=== PATIENT | male | born 1940 | race African-American/Black ===

== ENCOUNTER → 2017-10-22 12:56 | Outpatient (CLI) | payer MEDICARE, OTHER, SELFPAY ==
--- NOTE | 2017-10-22 13:08 | XR_ITS ---
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 There is cortical thickening of the mid shaft of the femur consistent with a healed fracture. There is some heterotopic bone formation about the proximal aspect of the intramedullary murali is actually posterior to the murali. There are mild osteoarthritic changes of the right hip. No fracture or dislocation. No bony destructive process. Surgical clips are present over the lower pelvic region. Bipolar hip left hip prosthesis is also noted. IMPRESSION: 1. Postsurgical changes with old mid shaft femoral fracture. 2. Mild osteoarthritic change of the right hip with heterotopic bone formation posterior to the proximal aspect of the IM murali
== END ==
PROVIDERS: PCP Family Medicine; Visit Provider Family Medicine
DX: M25.551 Pain in right hip (principal)
CPT/HCPCS: 73502

== ENCOUNTER → 2017-10-30 12:53 | Outpatient (CLI) | payer MEDICARE, OTHER, SELFPAY ==
--- NOTE | 2017-10-30 12:58 | CT_ITS ---
CT hip RT wo con HISTORY: ITS.REASON: RT HIP PAIN ORDERING PHYSICIAN: Carly Mukherjee MD PATIENT AGE: 77 years TECHNIQUE: Axial images are obtained without contrast. Sagittal and coronal reformatted images also generated and reviewed COMPARISON: None FINDINGS: Artifact is present from an intramedullary murali within the right hip. The murali extends from the greater trochanter into the femoral shaft and is not imaged distally. There are mild osteoarthritic changes of the right hip with decrease in the joint space and mild osteophyte formation. No acute fracture or dislocation is evident. Soft tissue calcification is present along the proximal aspect of the intramedullary murali consistent with heterotopic bone formation. No lytic or blastic change evident. No abnormal fluid collection. IMPRESSION: 1. Mild osteoarthritic changes of the right hip. 2. Postsurgical changes with intramedullary murali within the femur with heterotopic bone formation along the proximal aspect of the murali. 3. No acute finding
== END ==
PROVIDERS: Family Provider Family Medicine; PCP Family Medicine; Visit Provider Family Medicine
DX: M25.551 Pain in right hip (principal)
CPT/HCPCS: 73700

== ENCOUNTER → 2017-12-07 09:58 | Outpatient (POV) | payer MEDICARE, OTHER, SELFPAY | PROVIDERS: Family Provider Family Medicine; PCP Family Medicine; Visit Provider Nurse Practitioner Acute Care | DX: Z00.00 Encounter for general adult medical examination without abnormal findings (principal) ==

== ENCOUNTER → 2018-02-01 13:43 | Outpatient (POV) | payer MEDICARE, OTHER, SELFPAY ==
[2018-02-01 15:15] LABS: Basophils % 0.3 % (0.1-2.0); Eosinophils # 0.1 K/mm3 (0.0-0.4); Eosinophils % 0.9 % (0.1-12.0); Hematocrit 44.8 % (42.0-52.0); Hemoglobin 14.6 g/dL (14.1-18.0); Lymphocytes # 1.9 K/mm3 (0.7-4.5); Lymphocytes % 14.7 K/mm3 (10-50); Mean Corpuscular HGB Conc 32.7 g/dL (31.8-35.4); Mean Corpuscular Hemoglobin 30.8 pg (27.0-31.2); Mean Corpuscular Volume 94.3 fl (80-94); Mean Platelet Volume 10.3 fl (7.4-10.4); Monocytes # 0.9 K/mm3 (0.1-1.0); Monocytes % 6.5 % (1.7-9.3); Neutrophils # 10.2 K/mm3 (1.8-7.8); Neutrophils % 77.6 % (37.0-80.0); Platelet Count 157 K/mm3 (142-424); Red Blood Count 4.75 M/mm3 (4.60-6.20); Red Cell Distribution Width 16.3 % (11.5-17.5); White Blood Count 13.1 K/mm3 (4.8-10.8)
[2018-02-01 15:33] LABS: Blood Urea Nitrogen 20 mg/dL (7-18); Carbon Dioxide 25 mmol/L (21.0-32.0); Chloride 107 mmol/L (98-107); Creatinine,Serum 1.01 mg/dL (0.70-1.30); Estimated Glomerular Filt Rate 71 ml/min (>60); GFR (African American) 86 ML/MIN (>60); Sodium 142 mmol/L (136-145)
[2018-02-01 15:34] LABS: Alanine Aminotransferase 35 U/L (12-78); Albumin Level 3.4 gm/dL (3.4-5.0); Anion Gap 10.2 mEq/L (5-15); Aspartate Amino Transferase 24 U/L (15-37); C-Reactive Protein 1.6 mg/L (0.0-0.9); Calcium 9.3 mg/dL (8.5-10.1); Glucose 87 mg/dL (74-106)
[2018-02-01 16:12] LABS: Alkaline Phosphatase 138 U/L (46-116); Bilirubin,Total 0.6 mg/dL (0.2-1.0); Ferritin 277 ng/mL (8-388); Globulin 3.5 gm/dl (1.3-3.2); Total Protein,Serum 6.9 gm/dL (6.4-8.2)
[2018-02-01 16:26] LABS: Erythrocyte Sedimentation Rate 27 mm/hr (0-20)
[2018-02-03 08:25] LABS: Iron 70 ug/dL (38-169); Iron Saturation 25 % (15-55); UIBC 210 ug/dL (111-343)
[2018-02-05 12:35] LABS: Vitamin B12 1191 pg/mL (232-1245); Vitamin D 25 Hydroxy 22.8 ng/mL (30.0-100.0)
== END ==
PROVIDERS: Family Provider Family Medicine; PCP Family Medicine; Visit Provider Nurse Practitioner Acute Care
DX: K51.90 Ulcerative colitis, unspecified, without complications (principal)
CPT/HCPCS: 36415; 80053; 82607; 82652; 82728; 83550; 85025; 85651; 86140

== ENCOUNTER → 2018-02-10 13:47 | Outpatient (CLI) | payer MEDICARE, OTHER, SELFPAY ==
[2018-02-10 15:34] LABS: Basophils % 0.2 % (0.1-2.0); Eosinophils # 0.1 K/mm3 (0.0-0.4); Eosinophils % 0.8 % (0.1-12.0); Hematocrit 43.2 % (42.0-52.0); Lymphocytes # 1.6 K/mm3 (0.7-4.5); Lymphocytes % 15.2 K/mm3 (10-50); Mean Corpuscular HGB Conc 32.4 g/dL (31.8-35.4); Mean Corpuscular Hemoglobin 30.1 pg (27.0-31.2); Mean Platelet Volume 10.8 fl (7.4-10.4); Monocytes # 0.4 K/mm3 (0.1-1.0); Monocytes % 4.2 % (1.7-9.3); Neutrophils # 8.1 K/mm3 (1.8-7.8); Neutrophils % 79.6 % (37.0-80.0); Platelet Count 165 K/mm3 (142-424); Red Blood Count 4.65 M/mm3 (4.60-6.20); Red Cell Distribution Width 16.4 % (11.5-17.5); White Blood Count 10.2 K/mm3 (4.8-10.8)
[2018-02-10 15:48] LABS: INR 1.67 (0.9-1.1); Prothrombin Time 18.1 seconds (9.4-11.8)
[2018-02-10 16:38] LABS: Alanine Aminotransferase 40 U/L (12-78); Albumin Level 3.4 gm/dL (3.4-5.0); Alkaline Phosphatase 135 U/L (46-116); Anion Gap 14.7 mEq/L (5-15); Aspartate Amino Transferase 25 U/L (15-37); Bilirubin,Total 0.4 mg/dL (0.2-1.0); Blood Urea Nitrogen 20 mg/dL (7-18); Calcium 9.1 mg/dL (8.5-10.1); Carbon Dioxide 24 mmol/L (21.0-32.0); Chloride 107 mmol/L (98-107); Creatinine,Serum 0.99 mg/dL (0.70-1.30); Estimated Glomerular Filt Rate 73 ml/min (>60); Ferritin 272 ng/mL (8-388); GFR (African American) 88 ML/MIN (>60); Globulin 3.3 gm/dl (1.3-3.2); Potassium 3.7 mmoL/L (3.5-5.1); Sodium 142 mmol/L (136-145); Total Protein,Serum 6.7 gm/dL (6.4-8.2)
[2018-02-10 16:48] LABS: Glucose 120 mg/dL (74-106)
[2018-02-12 08:29] LABS: Alpha-1-Antitrypsin 161 mg/dL (90-200); Immunoglobulin A, Qn 235 mg/dL (61-437); Immunoglobulin G, Qn 888 mg/dL (700-1600); Iron 53 ug/dL (38-169); Iron Saturation 20 % (15-55); UIBC 215 ug/dL (111-343)
[2018-02-12 09:22] LABS: Hep A Ab, IgM Negative (Negative); Hep B Core Ab, Total Negative (Negative); Hepatitis B Core Antibody IgM Negative (Negative); Hepatitis B Surface Antigen Negative (Negative)
[2018-02-12 10:18] LABS: Hep A Ab, Total Negative (Negative); Hep B Surface Ab, Qual Reactive (.); Hepatitis C Antibody <0.1 s/co ratio (0.0-0.9); Immunoglobulin M, Qn 283 mg/dL (15-143)
[2018-02-12 19:22] LABS: Actin (Smooth Muscle) Antibody 101 Units (0-19); Angiotensin Converting Enzyme 46 U/L (14-82); Antinuclear Antibodies, IFA Negative (.); Deamidated Gliadin Abs, IgA 4 units (0-19); Deamidated Gliadin Abs, IgG 2 units (0-19); Endomysial IgA Antibody Negative (Negative); Liver-Kidney Microsomal Ab <1.0 Units (0.0-20.0); Mitochondrial (M2) Antibody <20.0 Units (0.0-20.0); Tissue Transglutaminase IgA Ab <2 U/mL (0-3); Tissue Transglutaminase IgG Ab <2 U/mL (0-5)
[2018-02-14 04:23] LABS: Reticulin IgA Antibody Negative titer (Neg:<1:2.5)
[2018-02-16 16:33] LABS: ALT (SGPT) P5P 35 IU/L (0-55); Alpha 2-Macroglobulins, Qn 219 mg/dL (110-276); Apolipoprotein A-1 191 mg/dL (101-178); Bilirubin, Total 0.3 mg/dL (0.0-1.2); Fibrosis Score 0.17 (0.00-0.21); GGT 23 IU/L (0-65); Haptoglobin 195 mg/dL (34-200); Necroinflammat Activity Grade A0-No activity (.); Necroinflammat Activity Score 0.16 (0.00-0.17)
== END ==
PROVIDERS: Visit Provider Internal Medicine Gastroenterology
DX: R94.5 Abnormal results of liver function studies (principal); K51.90 Ulcerative colitis, unspecified, without complications
CPT/HCPCS: 36415; 80053; 80074; 82104; 82164; 82728; 82784; 83516; 83550; 85025; 85610; 86038; 86255; 86256; 86376; 86704; 86706; 86708

== ENCOUNTER → 2018-02-15 07:25 | Outpatient (CLI) | payer MEDICARE, OTHER, SELFPAY ==
--- NOTE | 2018-02-15 08:00 | US_ITS ---
US abdomen limited: HISTORY: ITS.REASON: ABNORMAL LIVER FUNCTION ORDERING PHYSICIAN: Anabel Chu PATIENT AGE: 77 years FINDINGS: PANCREAS: Unremarkable. No obvious mass or abnormal fluid collection. No ductal dilatation LIVER: There is a 14 x 7 mm bilocular cyst in the left lobe of the liver. No other liver lesions are evident. RIGHT KIDNEY: 10 x 8 mm right renal cyst is noted GALLBLADDER: There is a gallstone present in the region of the neck of the gallbladder. No wall thickening or pericholecystic fluid. The common bile duct upper limits of normal for patient's age at 8 mm. No intrahepatic ductal dilatation apparent IMPRESSION: 1. Cholelithiasis. 2. Small hepatic cyst and small renal cyst
== END ==
PROVIDERS: Family Provider Family Medicine; PCP Family Medicine; Visit Provider Nurse Practitioner Acute Care
DX: R94.5 Abnormal results of liver function studies (principal)
CPT/HCPCS: 76705

== ENCOUNTER → 2018-02-16 08:43 | Outpatient (CLI) | payer MEDICARE, OTHER, SELFPAY ==
--- NOTE | 2018-02-16 08:50 | XR_ITS ---
XR chest 2V HISTORY: ITS.REASON: PLEURISY chest pain ORDERING PHYSICIAN: Carly Mukherjee MD PATIENT AGE: 77 years COMPARISON: 04/15/2017 FINDINGS: Prior median sternotomy. Cardiomegaly without failure. Emphysema with hyperinflation and attenuation of the peripheral pulmonary vessels in the apices with hyperlucency. Old granulomatous disease. No lobar consolidation or collapse. Degenerative changes of the right shoulder with severe subacromial stenosis IMPRESSION: No change cardiomegaly with emphysema
--- NOTE | 2018-02-16 08:51 | XR_ITS ---
XR shoulder LT min 2V HISTORY: Left shoulder pain ITS.REASON: PLEURISY ORDERING PHYSICIAN: Carly Mukherjee MD PATIENT AGE: 77 years FINDINGS: Moderate osteoarthritic changes involve the acromioclavicular joint with spurring superiorly and inferiorly with subacromial stenosis. There is a calcification along the humeral head laterally consistent with calcific tendinitis. There are moderate osteoarthritic changes of the glenohumeral joint. No fracture or dislocation. No lytic or blastic change. 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
== END ==
PROVIDERS: PCP Family Medicine; Visit Provider Family Medicine
DX: R09.1 Pleurisy (principal)
CPT/HCPCS: 71046; 73030

== ENCOUNTER → 2018-02-24 10:50 | Outpatient (CLI) | payer MEDICARE, OTHER, SELFPAY ==
[2018-02-24 11:32] LABS: INR 2.56 (0.9-1.1); Prothrombin Time 27.9 seconds (9.4-11.8)
== END ==
PROVIDERS: Visit Provider Nurse Practitioner
DX: Z79.01 Long term (current) use of anticoagulants (principal); Z51.81 Encounter for therapeutic drug level monitoring; I48.0 Paroxysmal atrial fibrillation
CPT/HCPCS: 36415; 85610

== ENCOUNTER → 2018-09-06 13:58 | Outpatient (POV) | payer MEDICARE, OTHER, SELFPAY | PROVIDERS: Visit Provider Nurse Practitioner Acute Care | DX: Z00.00 Encounter for general adult medical examination without abnormal findings (principal) ==

== ENCOUNTER → 2018-09-13 14:42 | Outpatient (CLI) | payer MEDICARE, OTHER, SELFPAY ==
[2018-09-13 15:44] LABS: C-Reactive Protein 2.5 mg/L (0.0-0.9); Ferritin 110 ng/mL (8-388)
[2018-09-13 15:50] LABS: Erythrocyte Sedimentation Rate 42 mm/hr (0-20)
[2018-09-15 06:19] LABS: Iron 22 ug/dL (38-169); UIBC 261 ug/dL (111-343)
[2018-09-15 06:27] LABS: Iron Saturation 8 % (15-55)
[2018-09-15 14:19] LABS: Vitamin B12 1142 pg/mL (232-1245)
[2018-09-15 14:22] LABS: Vitamin D 25 Hydroxy 41.8 ng/mL (30.0-100.0)
== END ==
PROVIDERS: Visit Provider Nurse Practitioner Acute Care
DX: K51.90 Ulcerative colitis, unspecified, without complications (principal)
CPT/HCPCS: 36415; 82607; 82652; 82728; 83540; 83550; 85651; 86140

== ENCOUNTER → 2019-03-15 10:00 | Outpatient (CLI) | payer MEDICARE, OTHER, SELFPAY ==
--- NOTE | 2019-03-15 10:04 | XR_ITS ---
XR chest 2V HISTORY: Cough, ITS.REASON: THERAPEUTIC DRUG THERAPY ORDERING PHYSICIAN: Carly Mukherjee MD PATIENT AGE: 78 years COMPARISON: 02/16/2018 FINDINGS: There is cardiomegaly without failure. There has been a prior median sternotomy. 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 The charity are prominent felt to be related to overlying vessels. No lobar consolidation or collapse. No acute bony anomalies. 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
== END ==
PROVIDERS: PCP Family Medicine; Visit Provider Family Medicine
DX: Z51.81 Encounter for therapeutic drug level monitoring (principal); Z79.01 Long term (current) use of anticoagulants; I48.0 Paroxysmal atrial fibrillation
CPT/HCPCS: 71046

== ENCOUNTER → 2019-11-29 08:46 | Outpatient (CLI) | payer MEDICARE, OTHER, SELFPAY ==
--- NOTE | 2019-11-29 09:05 | XR_ITS ---
PROCEDURE: XR CHEST 2V CLINICAL HISTORY: FLU LIKE SYMPTOMS COMPARISON: CXR CHEST(2 VIEWS-NOT PORTABLE) from 11/27/2015 CXR CHEST(2 VIEWS-NOT PORTABLE) from 04/15/2017 CXR2V XR chest 2V from 02/16/2018 FINDINGS: There is cardiomegaly with an atherosclerotic aorta without active CHF status post median sternotomy. There is mild prominence of the superior mediastinal shadow similar to previous exam. This may be due to thyroid enlargement. Shadow from great arch vascularity could give this appearance. Other etiology mediastinal mass is felt to be less likely. There is COPD. The lungs are clear without infiltrates, suspicious nodules, or pleural effusions. No acute bony abnormalities. IMPRESSION: No acute findings. Dictated by: Roland Aldrich 11/29/2019 11:35 Electronically signed by Roland Aldrich in [place] 11/29/2019 11:35
== END ==
PROVIDERS: PCP Family Medicine; Visit Provider Family Medicine
DX: R68.89 Other general symptoms and signs (principal)
CPT/HCPCS: 71046

== ENCOUNTER 2021-02-12 08:55 | Emergency (ER) | payer MEDICARE, OTHER, SELFPAY ==
[2021-02-12 08:57] VITALS: BP 120/77; PULSE 79; RESP 18; TEMP 36.7; O2SAT 96; BMI 30.4
--- NOTE | 2021-02-12 09:02 | HMH.EDGENADL ---
ED Disposition Clinical Impression: Epistaxis, Chronic anticoagulation Disposition: Home, Self-Care Condition on Discharge: Good Instructions: DI for Nosebleed Referrals: Carly Mukherjee MD [Primary Care Provider] - 3 days Time of Disposition: 10:34 - Critical Care Critical Care Time: No Attestation: On , the high probability of a clinically significant, sudden or life threatening deterioration of the following system(s) required my full and direct attention, intervention and personal management. The time I documented below is in addition to time spent performing reported procedures but includes the following listed in this critical care notation. Medical Decision Making - Jacques Inquiry Pt receiving controlled substance: No Vital Signs: 02/12/21 08:57 Temperature 98.1 F Temperature Source Oral Pulse Rate [Left Radial] 79 Respiratory Rate 18 Blood Pressure [Left Arm] 120/77 Blood Pressure Mean [Left Arm] 91 Blood Pressure Source [Left Arm] Automatic Cuff Blood Pressure Position [Left Arm] Sitting 02 Sat by Pulse Oximetry 96 Oxygen Delivery Method Room Air - Lab Data Lab results reviewed: Yes: I reviewed the patient's lab results. Lab Results 02/12/21 09:30: WBC 8.5, RBC 4.14 L, Hgb 13.5 L, Hct 40.2 L, MCV 97.1 H, MCH 32.6 H, MCHC 33.6, RDW 18.0 H, Plt Count 131 L, MPV 11.2 H, Neut % (Auto) 80.2 H, Lymph % (Auto) 11.7, [place] % (Auto) 6.3, Eos % (Auto) 1.5, Baso % (Auto) 0.2, Neut # (Auto) 6.8, Lymph # (Auto) 1.0, [place] # (Auto) 0.5, Eos # (Auto) 0.1, Baso # (Auto) 0.0 02/12/21 09:30: PT 32.7 H, INR 3.01 H Result diagrams: 02/12/21 09:30 Orders (Tests/Meds): ED MEDICATIONS Discontinued Medications Generic Name Dose Route Start Last Admin Trade Name Freq PRN Reason Stop Dose Admin Oxymetazoline HCl 1 ml 02/12/21 09:44 02/12/21 09:47 Oxymetazoline Nasal [place] 0.05% 15ml NS 02/12/21 09:45 1 ml ONCE ONE Administration Medical Decision Narrative: Left-sided epistaxis has resolved upon my initial evaluation. Patient treated with Afrin and monitored in the emergency department for 1-1/2 hours. CBC reveals appropriate H/H. INR is 3. Patient reports he is supposed to be 2-2.5. Encourage the patient to skip his dose of Coumadin tonight and have his INR rechecked Thursday or . Patient voiced understanding. Patient instructed on appropriate use of Afrin nasal spray. Encouraged to return to the emergency department if he begins bleeding again. General Adult HPI - General Stated complaint: nose bleed Time Seen by Provider: 02/12/21 09:02 Mode of Arrival: EMS Source of Information: Patient - History of Present Illness HPI narrative: 80yo M with past medical history significant for atrial fibrillation maintained on chronic anticoagulation presents the emergency department secondary to epistaxis. Patient reports this is been ongoing for several days. He reports it does not bleed at night. Patient wears supplemental O2 at night. He states he has been able to get it to stop each day but today he has continued to bleed. Patient arrived via EMS and EMS was almost achieved hemostasis upon arrival. Patient denies any recent illness. Denies shortness of breath or chest pain. - Related Data Home Medications Medication Instructions Recorded Confirmed Albuterol Sulfate [Proair Hfa 1 puff INHALATION DAILY 12/01/18 12/06/18 90mcg/puff Inh] Furosemide [Furosemide 40MG tAB*] 40 mg PO DAILY 12/01/18 02/12/21 Warfarin Sodium 5 mg PO DIRECTED 12/01/18 02/12/21 metHOTREXate sodium [metHOTREXate 8 tab PO WEEKLY 12/01/18 02/12/21 2.5mg Tablet] Ferrous Sulfate [Ferrous Sulfate 325 mg PO DAILY 02/12/21 02/12/21 325mg Tab] Metoprolol Succinate [Metoprolol 50 mg PO DAILY 02/12/21 02/12/21 Succinate 50mg Tablet*] Allergies Allergy/AdvReac Type Severity Reaction Status Date / Time No Known Allergies Allergy Verified 12/06/18 11:19 [facility] History - Hepat
[2021-02-12 09:06] VITALS: PULSE 69; O2SAT 96
[2021-02-12 09:31] VITALS: BP 107/72; PULSE 74; O2SAT 93
[2021-02-12 10:01] VITALS: BP 123/82; PULSE 70; O2SAT 93
[2021-02-12 10:02] LABS: Basophils % 0.2 % (0.1-2.0); Eosinophils # 0.1 K/mm3 (0.0-0.4); Eosinophils % 1.5 % (0.1-12.0); Hematocrit 40.2 % (42.0-52.0); Hemoglobin 13.5 g/dL (14.1-18.0); Lymphocytes % 11.7 % (10-50); Mean Corpuscular HGB Conc 33.6 g/dL (31.8-35.4); Mean Corpuscular Hemoglobin 32.6 pg (27.0-31.2); Mean Corpuscular Volume 97.1 fl (80-94); Mean Platelet Volume 11.2 fl (7.4-10.4); Monocytes # 0.5 K/mm3 (0.1-1.0); Monocytes % 6.3 % (1.7-9.3); Neutrophils # 6.8 K/mm3 (1.8-7.8); Neutrophils % 80.2 % (37.0-80.0); Platelet Count 131 K/mm3 (142-424); Red Blood Count 4.14 M/mm3 (4.60-6.20); White Blood Count 8.5 K/mm3 (4.8-10.8)
[2021-02-12 10:16] LABS: INR 3.01 (0.9-1.1); Prothrombin Time 32.7 seconds (10.1-12.5)
[2021-02-12 10:56] VITALS: BP 119/78; PULSE 70; RESP 18; TEMP 36.6; O2SAT 93
== END 2021-02-12 10:56 | disposition home or self-care (01) ==
PROVIDERS: Emergency Provider Family Medicine; PCP Family Medicine
DX: R04.0 Epistaxis (principal); I48.20 Chronic atrial fibrillation, unspecified; Z79.01 Long term (current) use of anticoagulants; J44.9 Chronic obstructive pulmonary disease, unspecified; E78.5 Hyperlipidemia, unspecified; I25.10 Atherosclerotic heart disease of native coronary artery without angina pectoris; Z96.641 Presence of right artificial hip joint; Z96.642 Presence of left artificial hip joint
CPT/HCPCS: 85025; 85610; 99282

== ENCOUNTER → 2021-09-03 15:10 | Outpatient (CLI) | payer MEDICARE, OTHER, SELFPAY ==
--- NOTE | 2021-09-03 15:13 | XR_ITS ---
PROCEDURE: XR NASAL BONES MIN 3V CLINICAL INDICATION: CONTUSION OF NOSE,INTITIAL ENCOUNTER COMPARISON: No exams were available for comparison FINDINGS: There is a well-circumscribed lucency through the mid aspect of the nasal bone consistent with a nondisplaced fracture. No sinus air-fluid level. No other significant anomalies are evident. IMPRESSION: Nondisplaced nasal bone fracture. Dictated by: Arik Gasca MD 09/03/2021 15:57 Arik Gasca MD in [place] 09/03/2021 15:57
--- NOTE | 2021-09-03 15:14 | XR_ITS ---
PROCEDURE: XR HAND RT MIN 3V CLINICAL INDICATION: CONTUSION OF FINGER OF RT HAND, UNSPECIFIED FINGER COMPARISON: No exams were available for comparison FINDINGS: No fracture or dislocation. No lytic or blastic change. There is normal mineralization. A small thin metallic density is present along the plantar aspect of the middle 5th phalanx within the soft tissues consistent with a foreign body measuring approximately 3 mm in length. Osteoarthritic changes are present at the DIP joints of the 2nd, 3rd, and 5th fingers as well as interphalangeal joint of the thumb. Well-circumscribed lucency is noted along proximal and palmar aspect of the distal phalanx of the thumb suggesting a cystic lesion at 7 x 3 mm. Osteoarthritic change 1st metacarpophalangeal joint and 1st carpal metacarpal junction. Severe atherosclerotic calcification noted. Osteoarthritis at the scapho trapezium joint. IMPRESSION: Degenerative changes as described above with metallic foreign body along the palmar aspect of the middle 5th phalanx proximally No acute fracture apparent Dictated by: Arik Gasca MD 09/03/2021 15:54 Arik Gasca MD in [facility] 09/03/2021 15:54
== END ==
PROVIDERS: PCP Family Medicine; Visit Provider Family Medicine
DX: S00.33XA Contusion of nose, initial encounter (principal); S60.00XA Contusion of unspecified finger without damage to nail, initial encounter
CPT/HCPCS: 70160; 73130

== ENCOUNTER → 2021-09-24 09:29 | Outpatient (CLI) | payer MEDICARE, OTHER, SELFPAY ==
--- NOTE | 2021-09-24 09:34 | XR_ITS ---
PROCEDURE: XR CHEST 2V CLINICAL HISTORY: SOB COMPARISON: CR CXR CHEST(2 VIEWS-NOT PORTABLE) from 04/15/2017 CR CXR2V XR chest 2V from 02/16/2018 CR XR CHEST 2V from 11/29/2019 FINDINGS: Prior CABG. Mild cardiomegaly. COPD with emphysematous changes. Increased markings in the right lower lobe suspicious for pneumonia. Left lung is clear. There are degenerative changes of the shoulders. IMPRESSION: Emphysematous changes with right lower lobe pneumonia Dictated by: Arik Gasca MD 09/24/2021 09:59 Arik Gasca MD in [facility] 09/24/2021 09:59
== END ==
PROVIDERS: PCP Family Medicine; Visit Provider Family Medicine
DX: R06.02 Shortness of breath (principal)
CPT/HCPCS: 71046

== ENCOUNTER → 2021-10-10 08:17 | Outpatient (CLI) | payer MEDICARE, OTHER, SELFPAY ==
--- NOTE | 2021-10-10 08:24 | CT_ITS ---
PROCEDURE: CT ABDOMEN WO/W CON CLINICAL HISTORY: ABD SWELLING,ASCITES COMPARISON: CR IVPI IVP--W/MILLER from 02/28/2015 US ABDLM US abdomen limited from 02/15/2018 TECHNIQUE: 75 mL Isovue 370 IV. Images obtained without and with contrast. Axial images obtained with sagittal and coronal reformats. All CT scans at the facility use one or more dose reduction, viz: automated exposure control, ma/kV adjustment per patient size (including targeted exams where dose is matched to indication, i.e. head), or iterative reconstruction technique. FINDINGS: Cardiomegaly. Enlarged right atrium and right ventricle. Prominent inferior vena cava. These findings suggest right heart decompensation. Centrilobular emphysema. Parenchymal opacity is present in the posterior costophrenic sulcus on the right at 1.6 cm. Coronary artery calcifications There is some regularity of the hepatic surface with mild prominence of the left hepatic lobe and a smaller right hepatic lobe. These findings are some suggestive of cirrhosis. There are at least 3 small hepatic hypodense lesions the largest in the left hepatic lobe at approximately 11 mm. These are nonspecific and may represent cysts. The gallbladder is distended with at least 1 radiopaque stone. There is a mild amount of perihepatic and perisplenic fluid. The spleen is not enlarged. The portal vein is slightly prominent at 17 mm. The adrenal glands and pancreas have an unremarkable appearance. No renal or ureteral calculi. There is a hyperdense exophytic nodule of the left kidney laterally measuring 19 x 18 x 17 mm with an average of 50 Hounsfield units on the unenhanced exam. The margins of this nodule are somewhat ill-defined with minimal enhancement of the nodule. There is a small right renal cyst at 11 mm. No retroperitoneal adenopathy. There are small bilateral renal cysts. No intestinal obstruction apparent. There is colonic diverticulosis. The pelvis is not included on the exam completely. Fluid is present in the pericolic gutters no renal or ureteral calculi. There is a mild amount of subcutaneous edema. There are degenerative changes in the lumbar spine. Atherosclerotic changes involve the aorta and its branches IMPRESSION: 1. Findings suggesting right heart decompensation. 2. 1.6 cm parenchymal opacity in the right posterior costophrenic sulcus. This is indeterminate and could be inflammatory/infectious or even neoplastic. Cannot exclude a metastatic focus in this patient with a suspicious left renal mass. 3. Findings compatible with cirrhosis with ascites and mildly enlarged portal vein. The spleen is not enlarged and no significant collateral vessels are apparent. 4. 19 mm left renal nodule suspicious for neoplasm. Suggest ultrasound to confirm solid nature. 5. Other nonacute findings as described above Dictated by: Arik Gasca MD 10/11/2021 08:53 Arik Gasca MD in [facility] 10/11/2021 08:53
== END ==
PROVIDERS: PCP Family Medicine; Visit Provider Family Medicine
DX: R19.00 Intra-abdominal and pelvic swelling, mass and lump, unspecified site (principal)
CPT/HCPCS: 74170; Q9967

== ENCOUNTER → 2021-10-17 14:32 | Outpatient (CLI) | payer MEDICARE, OTHER, SELFPAY | PROVIDERS: Visit Provider Urology | DX: N40.1 Benign prostatic hyperplasia with lower urinary tract symptoms (principal); B96.20 Unspecified Escherichia coli [E. coli] as the cause of diseases classified elsewhere | CPT/HCPCS: 87086; 87088; 87186 ==

== ENCOUNTER → 2021-10-31 13:04 | Outpatient (CLI) | payer MEDICARE, OTHER, SELFPAY ==
--- NOTE | 2021-10-31 13:05 | US_ITS ---
FINAL REPORT CLINICAL HISTORY: .eval kidney for lesion on lt -- recent ct-- ascites noted FINDINGS: RENAL ULTRASOUND Ultrasound images of the kidneys were obtained. Limited images of the liver parenchyma demonstrates normal echogenicity. The right kidney measures 9.8 cm in length. There is no hydronephrosis. There is a small right renal cyst. The left kidney measures 9.2 cm in length. There is no hydronephrosis. There is a 2.1 cm mass in the left kidney with questionable peripheral calcifications. This does not appear to be a simple cyst, may represent complex cyst or possibly renal neoplasm. IMPRESSION: Left renal mass, may represent a complex cyst or possibly renal neoplasm. Recommend renal mass protocol CT in 6 months. Reviewed, Interpreted and Dictated by Merlin Mclaughlin III, MD Transcribed by Marta Beebe Authenticated by Merlin Mclaughlin III, MD on 10/31/2021 03:17:10 PM [facility]
== END ==
PROVIDERS: PCP Family Medicine; Visit Provider Urology
DX: N28.89 Other specified disorders of kidney and ureter (principal)
CPT/HCPCS: 76770

== ENCOUNTER → 2021-11-11 08:12 | Outpatient (CLI) | payer MEDICARE, OTHER, SELFPAY ==
--- NOTE | 2021-11-11 08:17 | CT_ITS ---
FINAL REPORT TECHNIQUE: Axial CT images of the abdomen and pelvis were obtained before and after the administration of IV contrast. This study was performed with techniques to keep radiation doses as low as reasonably achievable (ALARA). Individualized dose reduction techniques using automated exposure control or adjustment of mA and/or kV according to the patient''s size were employed. CLINICAL HISTORY: LT RENAL MASS COMPARISON: 10/10/2021, 10/31/2021 FINDINGS: Abdomen: The lung bases demonstrate moderate emphysema. There is a persistent, irregular soft tissue nodule at the right posterior costophrenic angle measuring 1.8 cm, unchanged. Marked enlargement of the right atrium and right ventricle is stable. Probable small cysts are seen in the liver. There is moderate ascites. Gallbladder is distended with small gallstones. The spleen is unremarkable. No adrenal masses present. The pancreas has an unremarkable appearance. There is a hyperdense, left renal mass measuring 20 mm, which is stable in size. This measures 52 Hounsfield units on precontrast imaging and 60?62 Hounsfield units on postcontrast imaging which is borderline for contrast enhancement. On recent ultrasound, this mass has a mostly cystic appearance with probable small calcifications in the wall. The aorta is normal in caliber. Vascular calcifications are noted. Precontrast images demonstrate no evidence of nephrolithiasis. Pelvis: The appendix is not well visualized. The urinary bladder is unremarkable. No inflammatory process is seen. There is no evidence of mass or adenopathy. There is no evidence of bowel obstruction. IMPRESSION: Stable, 20 mm lateral left renal mass. While neoplasm is not entirely excluded, complex cyst (Bosniak category 2F) is favored. This can be further evaluated with follow-up renal mass protocol CT in 6 months. Stable soft tissue nodule at the right lung base which may be infectious or neoplastic. Stable ascites and pericardial effusion. Reviewed, Interpreted and Dictated by Merlin Mclaughlin III, MD Transcribed by Kristina Schmidt Authenticated by Merlin Mclaughlin III, MD on 11/11/2021 11:38:33 AM [facility]
== END ==
PROVIDERS: PCP Family Medicine; Visit Provider Family Medicine
DX: N28.89 Other specified disorders of kidney and ureter (principal)
CPT/HCPCS: 74178; Q9967

== ENCOUNTER → 2022-01-06 12:32 | Outpatient (CLI) | payer MEDICARE, OTHER, SELFPAY ==
--- NOTE | 2022-01-06 12:39 | XR_ITS ---
FINAL REPORT CLINICAL HISTORY: COUGH,PNEUMONIA,POST COVID COMPARISON: 09/24/2021 FINDINGS: Two views of the chest were obtained. The heart size and pulmonary vascularity are within normal limits. The patient is status post median sternotomy. There are persistent bilateral opacities, right greater than left which may represent scarring or residual pneumonia. There is no pneumothorax. The bony thorax is intact. IMPRESSION: Persistent bilateral opacities, right greater than left, scarring versus residual pneumonia. Reviewed, Interpreted and Dictated by Merlin Mclaughlin III, MD Transcribed by Radha Isabel Authenticated by Merlin Mclaughlin III, MD on 01/06/2022 01:29:25 PM [facility]
== END ==
PROVIDERS: PCP Family Medicine; Visit Provider Family Medicine
DX: R05.9 Cough, unspecified (principal); J18.9 Pneumonia, unspecified organism; U09.9 Post COVID-19 condition, unspecified
CPT/HCPCS: 71046

== ENCOUNTER → 2022-01-16 11:54 | Outpatient (CLI) | payer MEDICARE, OTHER, SELFPAY ==
--- NOTE | 2022-01-16 11:59 | XR_ITS ---
FINAL REPORT CLINICAL HISTORY: INJURY OF RIGHT WRIST, INITIAL ENCOUNTER. pt fell and has radial sided wrist pain. FINDINGS: RIGHT WRIST Three views demonstrate no acute fracture or dislocation. There are mild degenerative changes. There are moderate vascular calcifications. IMPRESSION: No acute bony abnormality. Reviewed, Interpreted and Dictated by Merlin Mclaughlin III, MD Transcribed by Whitney Garcia Authenticated by Merlin Mclaughlin III, MD on 01/16/2022 01:05:49 PM [facility]
== END ==
PROVIDERS: PCP Family Medicine; Visit Provider Nurse Practitioner Family
DX: S69.91XA Unspecified injury of right wrist, hand and finger(s), initial encounter (principal)
CPT/HCPCS: 73110

== ENCOUNTER → 2022-02-13 13:55 | Outpatient (CLI) | payer MEDICARE, OTHER, SELFPAY ==
[2022-02-13 15:29] LABS: Blood Urea Nitrogen 23 mg/dl (9-20); Estimated Glomerular Filt Rate 72 ml/min (>60); GFR (African American) 87 ML/MIN (>60)
== END ==
PROVIDERS: PCP Family Medicine; Visit Provider Family Medicine
DX: Z51.81 Encounter for therapeutic drug level monitoring (principal); Z79.01 Long term (current) use of anticoagulants; I48.0 Paroxysmal atrial fibrillation
CPT/HCPCS: 36415; 82565; 84520

== ENCOUNTER → 2022-02-14 09:53 | Outpatient (CLI) | payer MEDICARE, OTHER, SELFPAY ==
--- NOTE | 2022-02-14 09:58 | CT_ITS ---
FINAL REPORT CLINICAL HISTORY: OTHER ASCITES, bloating COMPARISON: November 11, 2021 FINDINGS: CT ABDOMEN with and without: PROCEDURE: Axial images were obtained from the lung base to the iliac crest by computed tomography before and after the administration of contrast. This study was performed with techniques to keep radiation doses as low as reasonably achievable (ALARA). Individualized dose reduction techniques using automated exposure control or adjustment of mA and/or kV according to the patient's size were employed. ABDOMEN: There are chronic changes in the lung bases. The heart is normal in size. There is a low-attenuation focus in the lateral left lobe of the liver, stable from prior. There is a moderate amount of ascites which is increased from prior. There is a gallstone in the dependent portion of the gallbladder. The spleen is normal. No adrenal masses present. The pancreas is normal. There is a high density cyst in the periphery of the left kidney measuring 2.0 x 1.4 cm that is unchanged since the prior exam. The aorta is normal in caliber. IMPRESSION: Interval increase in ascites. Cholelithiasis. Stable high density cyst in the left kidney. For complete characterization a renal mass protocol CT would be necessary. Reviewed, Interpreted and Dictated by Aaron Hummel MD Transcribed by Hemal Majano Authenticated by Aaron Hummel MD on 02/14/2022 01:24:30 PM [facility]
== END ==
PROVIDERS: PCP Family Medicine; Visit Provider Family Medicine
DX: R18.8 Other ascites (principal)
CPT/HCPCS: 74170; Q9967

== ENCOUNTER 2022-02-15 17:30 | Emergency (ER) | payer MEDICARE, OTHER, SELFPAY ==
[2022-02-15] VITALS (10 sets, daily range): BP systolic 99–122; BP diastolic 71–88; PULSE 78–127; RESP 10–24; TEMP 36.6; O2SAT 92–100; BMI 27.3
--- NOTE | 2022-02-15 17:25 | HMH.EDWEAK ---
ED Disposition Clinical Impression: Chronic anticoagulation, Liver disease Contusion Qualifiers: Encounter type: initial encounter Contusion area: head Disposition: Still a Patient Condition on Discharge: Fair Instructions: DI for Muscle Weakness Referrals: Provider,Referral, [Referring] - - Critical Care Critical Care Time: No Attestation: On , the high probability of a clinically significant, sudden or life threatening deterioration of the following system(s) required my full and direct attention, intervention and personal management. The time I documented below is in addition to time spent performing reported procedures but includes the following listed in this critical care notation. Medical Decision Making - Medical Records Medical records reviewed: Yes: I reviewed the patient's medical records. - Jacques Inquiry Pt receiving controlled substance: No Vital Signs: 02/15/22 17:25 02/15/22 19:01 Temperature 98 F Temperature Source Oral Pulse Rate [Radial] 78 Respiratory Rate 22 10 L Blood Pressure 102/77 L Blood Pressure [Right Arm] 103/71 L Blood Pressure Mean [Right Arm] 81 Blood Pressure Position [Right Arm] Sitting 02 Sat by Pulse Oximetry 96 92 L Oxygen Delivery Method Nasal Cannula Room Air Oxygen Flow Rate (LPM) 2 - Lab Data Lab Results 02/15/22 19:50: WBC 6.8, RBC 3.24 L, Hgb 11.2 L, Hct 34.4 L, MCV 106.1 H, MCH 34.7 H, MCHC 32.7, RDW 19.4 H, Plt Count 75 L, MPV 11.3 H, Neut % (Auto) 88.6 H, Lymph % (Auto) 7.0 L, [place] % (Auto) 2.2, Eos % (Auto) 1.5, Baso % (Auto) 0.7, Neut # (Auto) 6.0, Lymph # (Auto) 0.5 L, [place] # (Auto) 0.2, Eos # (Auto) 0.1, Baso # (Auto) 0.0, Total Counted 100, Neutrophils % (Manual) 89 H, Band Neutrophils % 2.0, Lymphocytes % (Manual) 9 L, Platelet Estimate Slight decrease, Poikilocytosis 1+, Anisocytosis 3+, Macrocytosis 2+ 02/15/22 19:50: PT 90.0 H, INR 8.00 H 02/15/22 19:50: Sodium 134 L, Potassium 2.8 L*, Chloride 99, Carbon Dioxide 32 H, Anion Gap 5.8, BUN 23 H, Creatinine 1.00, Estimated Creat Clear 66, Estimated GFR 72, Est GFR ( Amer) 87, Glucose 113 H, Calcium 9.0, Total Bilirubin 3.1 H, AST 57, ALT 30, Alkaline Phosphatase 149 H, Total Protein 5.5 L, Albumin 2.7 L, Globulin 2.8, Albumin/Globulin Ratio 1.0 L Result diagrams: 02/15/22 19:50 02/15/22 19:50 Orders (Tests/Meds): ORDERS Category Date Time Status Ammonia Stat Lab 02/15/22 19:50 Received Urinalysis and Microscopic Stat Lab 02/15/22 Ordered 12-lead EKG Request [ECG Request by /Teri] Stat Y 02/15/22 17:31 Ordered - CT Data CT Scan: Head Time Received: 17:[address] Reviewed: Yes: I have viewed the radiologist's interpretation - ECG Data Tracing #1 I reviewed this ECG and interpreted as documented below: The patient is EKG was done at 1726. It shows atrial fibrillation with a ventricular response rate of [address] elevations. There are ST depressions in V2 V3 V4 V5. There are also Q waves present. There are Q waves are in leads II, III and aVF. No acute appearing ECG changes are apparent. Normal Sinus Rhythm: No Arrhythmias present: afib Medical Decision Narrative: Labs are pending at the end of my shift care of this patient has been transferred to Dr. Egan who is coming on shift now. My impression is that the patient will be able to go home. He has chronic liver disease with edema. His CT of the head did not show any acute intracranial bleeding. Weakness HPI - General Stated complaint: weakness Time Seen by Provider: 02/15/22 17:25 Mode of Arrival: EMS Source of Information: Patient, EMS - History of Present Illness HPI Narrative: The patient complains of progressively getting weaker over the last day or 2. He has a history of atrial fibrillation for which she is on Coumadin. He also complains of some edema. He tried getting up yesterday to go to the restroom when he fell and struck his forehead. MD Complaint: generalized wea
--- NOTE | 2022-02-15 17:28 | CT_ITS ---
PROCEDURE INFORMATION: Exam: CT Head Without Contrast Exam date and time: 02/15/2022 5:34 PM Age: 81 years old Clinical indication: Injury or trauma; Fall; Additional info: Injury on coumadin TECHNIQUE: Imaging protocol: Computed tomography of the head without contrast. Total images: 280 Radiation optimization: All CT scans at this facility use at least one of these dose optimization techniques: automated exposure control; mA and/or kV adjustment per patient size (includes targeted exams where dose is matched to clinical indication); or iterative reconstruction. COMPARISON: CR XR NASAL BONES MIN 3V 09/03/2021 3:43 PM FINDINGS: Brain: Moderate generalized atrophy. Moderate bilateral white matter hypodensities which are nonspecific but most commonly associated with chronic microvascular ischemia in this age group. No extra-axial fluid collections. No evidence of acute intracranial hemorrhage. Mild basal ganglia calcifications bilaterally. Rodriguez-white differentiation is well maintained. No CT evidence of large territory acute or subacute intracranial ischemia/infarct. No intracranial mass lesions. No midline shift or herniation. Cerebral ventricles: Moderate-severe compensatory ventriculomegaly secondary to central atrophy. Paranasal sinuses: Mucosal thickening in the maxillary sinuses suggesting mild chronic sinus inflammatory disease. No fluid levels. The other paranasal sinuses are clear. Mastoid air cells: Visualized mastoid air cells are clear. Orbital cavities: Visualized orbital contents demonstrate no acute abnormality. Prior bilateral ocular lens extraction. Vasculature: Moderate calcific atherosclerosis. No asymmetric vascular hyperdensities suggestive of thrombosis are identified. Moderate vertebrobasilar dolichoectasia. Bones/joints: The calvarium and visualized facial bones are intact. Soft tissues: Right frontal scalp and right periorbital soft tissue swelling with no underlying fracture or foreign body. Other findings: The IACs are grossly normal. The sella is grossly normal. IMPRESSION: 1. No acute intracranial process. No intracranial hemorrhage or mass effect. 2. Right frontal scalp and right periorbital soft tissue swelling with no underlying fracture or foreign body. No acute intraorbital abnormalities. 3. Atrophy and chronic microvascular changes consistent with age. 4. Moderate calcific atherosclerosis.
--- NOTE | 2022-02-15 17:31 | ECG_ITS ---
APPROVED REPORT Exam: Resting ECG HR:97 bpm ECG Measurements Heart Rate 97 AXES QRSd 161 QRS 243 QT 397 T 28 QTc 452 Conclusion ATRIAL FIBRILLATION RIGHT AXIS DEVIATION [QRS AXIS > 100] RIGHT BUNDLE BRANCH BLOCK [120+ ms QRS DURATION, UPRIGHT V1, 40+ ms S IN I/aVL/V4/V5/V6] ABNORMAL ECG UNCONFIRMED REPORT Electronically signed by : Samuel Seals MD 02/16/2022 08:21:58
--- NOTE | 2022-02-15 17:34 | PC.NURSE ---
to ct per stretcher
--- NOTE | 2022-02-15 17:36 | PC.NURSE ---
PT to DORI, [facility]
[2022-02-15 20:05] LABS: Basophils % 0.7 % (0.1-2.0); Eosinophils # 0.1 K/mm3 (0.0-0.4); Eosinophils % 1.5 % (0.1-12.0); Hematocrit 34.4 % (42.0-52.0); Hemoglobin 11.2 g/dL (14.1-18.0); Lymphocytes # 0.5 K/mm3 (0.7-4.5); Mean Corpuscular HGB Conc 32.7 g/dL (31.8-35.4); Mean Corpuscular Hemoglobin 34.7 pg (27.0-31.2); Mean Corpuscular Volume 106.1 fl (80-94); Mean Platelet Volume 11.3 fl (7.4-10.4); Monocytes # 0.2 K/mm3 (0.1-1.0); Monocytes % 2.2 % (1.7-9.3); Neutrophils % 88.6 % (37.0-80.0); Platelet Count 75 K/mm3 (142-424); Red Blood Count 3.24 M/mm3 (4.60-6.20); Red Cell Distribution Width 19.4 % (11.5-17.5); White Blood Count 6.8 K/mm3 (4.8-10.8)
[2022-02-15 20:08] LABS: Chloride 99 mmol/L (98-107); Sodium 134 mmol/L (136-145)
[2022-02-15 20:09] LABS: MANUAL DIFFERENTIAL MANUAL DIFFERENTIAL (MANUAL DIFF)
[2022-02-15 20:11] LABS: Alanine Aminotransferase 30 U/L (12-78); Albumin Level 2.7 g/dl (3.5-5.0); Alkaline Phosphatase 149 U/L (38-126); Anion Gap 5.8 mEq/L (5-15); Aspartate Amino Transferase 57 U/L (17-59); Bilirubin,Total 3.1 mg/dl (0.2-1.3); Blood Urea Nitrogen 23 mg/dl (9-20); Carbon Dioxide 32 mmol/L (22.0-30.0); Creatinine Clearance Estimated 66 mL/min (50-200); Estimated Glomerular Filt Rate 72 ml/min (>60); GFR (African American) 87 ML/MIN (>60); Globulin 2.8 g/dL (1.3-3.2); Total Protein,Serum 5.5 g/dl (6.3-8.2)
[2022-02-15 20:12] LABS: Glucose 113 mg/dl (74-100)
[2022-02-15 20:14] LABS: Potassium 2.8 mmoL/L (3.5-5.1)
--- NOTE | 2022-02-15 20:14 | PC.NURSE ---
Critical potassium of 2.8 called by Bill in lab. notified.
[2022-02-15 20:17] LABS: Anisocytosis 3+; Lymphocytes % 9 % (10-50); Macrocytosis 2+; Neutrophils % 89 % (42-76); Platelet Estimate Slight Decrease; Poikilocytosis 1+; Total Cells Counted 100
--- NOTE | 2022-02-15 20:38 | XR_ITS ---
PROCEDURE INFORMATION: Exam: XR Chest Exam date and time: 02/15/2022 8:50 PM Age: 81 years old Clinical indication: Injury or trauma; Fall; Blunt trauma (contusions or hematomas) TECHNIQUE: Imaging protocol: XR of the chest. Views: 1 view. COMPARISON: CR XR CHEST 2V 01/06/2022 12:41 PM FINDINGS: Lungs: Interstitial opacities in both lungs findings concerning for pneumonia. Underlying emphysema. Pleural spaces: Unremarkable. No pleural effusion. No pneumothorax. Heart/Mediastinum: Cardiomegaly. Bones/joints: Midline sternotomy. IMPRESSION: Interstitial opacities in both lungs findings concerning for moderate pneumonia. Correlate clinically
--- NOTE | 2022-02-15 20:42 | CT_ITS ---
PROCEDURE INFORMATION: Exam: CT Cervical Spine Without Contrast Exam date and time: 02/15/2022 9:00 PM Age: 81 years old Clinical indication: Injury or trauma; Fall; Blunt trauma TECHNIQUE: Imaging protocol: Computed tomography images of the cervical spine without contrast. Total images: 508 Radiation optimization: All CT scans at this facility use at least one of these dose optimization techniques: automated exposure control; mA and/or kV adjustment per patient size (includes targeted exams where dose is matched to clinical indication); or iterative reconstruction. 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 Craniocervical alignment is normal. The odontoid is intact. No fractures. Reversal of cervical lordosis may be positional or could relate to an element of muscular strain/spasm. 2 mm degenerative anterolisthesis C3-C4. No blastic or lytic lesions. No compressive soft disc protrusion or extrusion is evident by CT. 3.5 mm posterior mixed spondylotic ridge C6-C7 with smaller posterior spurring C3-C4 through C5-C6. Prior median sternotomy. Discs/Spinal canal/Neural foramina: The occipital condyles are intact. No jumped or perched facets. Mild-moderate bilateral facet hypertrophic changes. Moderate-severe disc space narrowing with moderate marginal spurring and mild endplate sclerosis/erosion at C4-C5 through C6-C7, and mild-moderate disc degenerative changes at C3-C4. Moderate canal stenosis C6-C7. Mild canal stenosis C3-C4 through C5-C6. There is left foraminal stenosis which is moderate-severe at C4-C5, moderate at C5-C6, moderate-severe at C6-C7, and mild at C7-T1. There is right foraminal stenosis which is moderate-severe at C4-C5, mild at C5-C6, moderate-severe at C6-C7, and mild-moderate at C7-T1. Severe right foraminal stenosis also noted at T2-T3. Thyroid: Low-density nodule in the right thyroid lobe measuring up to 16 mm. Nonemergent thyroid ultrasound evaluation recommended. Lungs: Moderate-severe emphysematous changes in the pulmonary apices. Soft tissues: Paraspinous soft tissues are unremarkable without significant soft tissue swelling or soft tissue hematoma. IMPRESSION: 1. No evidence of fracture or acute traumatic subluxation. 2. Mild reversal of cervical lordosis may be positional or could relate to an element of muscular strain/spasm. 3. Degenerative changes with multilevel canal and foraminal stenoses detailed above. COMMENTS: Consistent with the [employer]'s Incidental Findings Committee white paper (J Am Supriya Radiol 2015): In patients aged 35 years and older with an incidental thyroid nodule equal to or greater than 1.[address], MRI or extrathyroidal US, further evaluation with dedicated thyroid US is recommended for patients with normal life expectancy and without comorbidities. For smaller nodules without suspicious features, no further evaluation or follow up is recommended.
--- NOTE | 2022-02-15 20:44 | XR_ITS ---
PROCEDURE INFORMATION: Exam: XR Pelvis Exam date and time: 02/15/2022 8:52 PM Age: 81 years old Clinical indication: Injury or trauma; Fall; Blunt trauma (contusions or hematomas); Left; Hip; Prior surgery; Surgery date: 6+ months TECHNIQUE: Imaging protocol: XR pelvis. Views: 1 or 2 view. COMPARISON: CT ABDOMEN PELVIS WO/W CON 11/11/2021 9:17 AM FINDINGS: Bones/joints: Bilateral hip arthroplasty devices in place. No hardware complications. No acute fracture. No dislocation. Soft tissues: Unremarkable. IMPRESSION: No acute findings.
[2022-02-15 20:46] LABS: Ammonia < 9 umol/L (9-30)
--- NOTE | 2022-02-15 21:00 | XR_ITS ---
PROCEDURE INFORMATION: Exam: XR Left Hip Exam date and time: 02/15/2022 9:06 PM Age: 81 years old Clinical indication: Injury or trauma; Fall; Blunt trauma (contusions or hematomas); Left; Hip; Prior surgery; Surgery date: 6+ months TECHNIQUE: Imaging protocol: XR Left hip. Views: 2 or 3 views hip with pelvis when performed. COMPARISON: CR XR PELVIS 1-2V 02/15/2022 8:52 PM FINDINGS: Bones/joints: Unremarkable. No acute fracture. Left hip arthroplasty device in place. No hardware complication. No periprosthetic lucency. Soft tissues: Unremarkable. IMPRESSION: No acute findings.
[2022-02-15 22:21] LABS: NT Pro Brain Natriuretic Pep. 10300 pg/mL (0-450)
[2022-02-15 22:26] LABS: Microscopic, Urine URINE MICROSCOPIC (MICROSCOPIC)
[2022-02-15 22:28] LABS: T4 (Thyroxine) 7.1 ug/dl (5.53-11.0)
--- NOTE | 2022-02-15 22:34 | CT_ITS ---
PROCEDURE INFORMATION: Exam: CT Lumbar Spine Without Contrast Exam date and time: 02/15/2022 11:11 PM Age: 81 years old Clinical indication: Injury or trauma; Fall; Blunt trauma (contusions or hematomas) TECHNIQUE: Imaging protocol: Computed tomography images of the lumbar spine without contrast. Radiation optimization: All CT scans at this facility use at least one of these dose optimization techniques: automated exposure control; mA and/or kV adjustment per patient size (includes targeted exams where dose is matched to clinical indication); or iterative reconstruction. COMPARISON: CT HIP LT WO CON 02/15/2022 11:08 PM FINDINGS: Vertebrae: No acute fracture. Normal alignment. Discs/Spinal canal/Neural foramina:Multilevel disc bulging resulting in neural foraminal and central canal narrowing. Mild vacuum phenomenon at L4-L5 and L5-S1. Multilevel facet joint arthropathy. Soft tissues: Moderate amount of free fluid in the abdomen and pelvis. Bilateral renal cysts. Gallstones. IMPRESSION: 1. No acute fracture or malalignment of the lumbar spine. 2. Moderate amount of free fluid in the pelvis
--- NOTE | 2022-02-15 22:34 | CT_ITS ---
PROCEDURE INFORMATION: Exam: CT Left Lower Extremity Without Contrast, Hip Exam date and time: 02/15/2022 11:08 PM Age: 81 years old Clinical indication: Injury or trauma; Fall; Prior surgery; Surgery date: 6+ months; Surgery type: Total hip TECHNIQUE: Imaging protocol: CT of the Left lower extremity without contrast was performed. Exam focused on the hip. Radiation optimization: All CT scans at this facility use at least one of these dose optimization techniques: automated exposure control; mA and/or kV adjustment per patient size (includes targeted exams where dose is matched to clinical indication); or iterative reconstruction. COMPARISON: CR XR HIP LT 2-3V W/PELVIS 02/15/2022 9:06 PM FINDINGS: Bones/joints: Left hip arthroplasty device in place. Streak artifact limits evaluation. No hardware complication or acute fracture or dislocation. Soft tissues: Soft tissue swelling involving the thigh. Impression: No acute fracture or dislocation.
[2022-02-15 22:39] LABS: Appearance,Urine SL CLOUDY (Clear); Bilirubin,Urine Negative (Negative); Blood, Urine 3+ (Negative); Color,Urine DK YELLOW (Yellow); Glucose,Urine (UA) Negative (Negative); Ketones,Urine Negative (Negative); Leukocyte Esterase,Urine 1+ (Negative); Nitrate,Urine Negative (Negative); Protein,Urine 2+ (Negative); Specific Gravity, Urine 1.025 (1.005-1.030)
[2022-02-15 22:41] LABS: RBC,Urine 20-50 #/hpf (0-3); WBC,Urine 20-50 #/hpf (0-3)
[2022-02-15 22:42] LABS: Thyroid Stimulating Hormone 1.65 uIU/mL (0.465-4.68)
[2022-02-16] VITALS: BP 133/97; PULSE 128; RESP 15; O2SAT 98
[2022-02-16 00:31] VITALS: BP 109/72; PULSE 124; RESP 26; O2SAT 97
[2022-02-16 01:00] VITALS: BP 107/76; PULSE 122; RESP 24; O2SAT 97
--- NOTE | 2022-02-16 01:21 | PC.NURSE ---
spoke with [facility] about pt transfer. states they will call back once they check bed status.
[2022-02-16 01:28] LABS: Influenza A, PCR Not Detected (NotDetected); Influenza B, PCR Not Detected (NotDetected)
[2022-02-16 01:31] VITALS: BP 123/92; PULSE 129; RESP 24; O2SAT 98
--- NOTE | 2022-02-16 01:37 | PC.NURSE ---
DR flynn @ [facility] accepted pt. waiting covid results before bed assignment will be given
[2022-02-16 01:50] LABS: Coronavirus 19, PCR Detected (NotDetected)
[2022-02-16 01:59] LABS: Troponin I 0.06 ng/ml (0.00-0.034)
[2022-02-16 02:01] VITALS: BP 112/85; PULSE 128; RESP 22; O2SAT 98
--- NOTE | 2022-02-16 02:32 | PC.NURSE ---
NO CHANGES IN ASSMNT. PT AWARE OF PLAN TO TRANSFER TO [facility] AND WAITING ON BED PLACEMENT AT THAT FACILITY.
[2022-02-16 03:02] VITALS: BP 105/72; PULSE 115; RESP 22; TEMP 36.6; O2SAT 98
== END 2022-02-16 03:17 ==
PROVIDERS: Emergency Medicine; Emergency Provider Emergency Medicine; PCP Family Medicine
DX: N39.0 Urinary tract infection, site not specified; B96.29 Other Escherichia coli [E. coli] as the cause of diseases classified elsewhere; Z16.11 Resistance to penicillins; Z16.29 Resistance to other single specified antibiotic; K76.9 Liver disease, unspecified; Z79.01 Long term (current) use of anticoagulants; I48.91 Unspecified atrial fibrillation; S09.90XA Unspecified injury of head, initial encounter; W19.XXXA Unspecified fall, initial encounter; J44.9 Chronic obstructive pulmonary disease, unspecified; N40.0 Benign prostatic hyperplasia without lower urinary tract symptoms; I25.10 Atherosclerotic heart disease of native coronary artery without angina pectoris; K21.9 Gastro-esophageal reflux disease without esophagitis; E78.5 Hyperlipidemia, unspecified; I10 Essential (primary) hypertension; M19.90 Unspecified osteoarthritis, unspecified site
CPT/HCPCS: 36415; 70450; 71045; 72125; 72131; 72170; 73502; 73700; 80053; 81001; 82140; 83880; 84436; 84443; 84484; 85007; 85025; 85610; 87086; 87088; 87186; 93005; 96365; 96375; 99284; C9803; J0696; U0003; U0005

== ENCOUNTER 2022-04-15 12:07 | Inpatient (IN) | payer MEDICARE, OTHER, SELFPAY ==
[2022-04-15] VITALS (10 sets, daily range): BP systolic 98–108; BP diastolic 50–79; PULSE 84–130; RESP 18–22; TEMP 36.9–37.3; O2SAT 91–100; BMI 22.0; BMI 22.9
--- NOTE | 2022-04-15 11:55 | PC.NURSE ---
AWARE OF SEPSIS CRITERIA
--- NOTE | 2022-04-15 11:58 | HMH.EDGENADL ---
ED Disposition Clinical Impression: Pneumonia due to 2019-nCoV, Renal insufficiency Atrial fibrillation Qualifiers: Atrial fibrillation type: longstanding persistent Qualified Code(s): I48.11 - Longstanding persistent atrial fibrillation Disposition: Admitted As Inpatient Condition on Discharge: [facility] - Critical Care Critical Care Time: No Attestation: On , the high probability of a clinically significant, sudden or life threatening deterioration of the following system(s) required my full and direct attention, intervention and personal management. The time I documented below is in addition to time spent performing reported procedures but includes the following listed in this critical care notation. Medical Decision Making - Jacques Inquiry Pt receiving controlled substance: No Vital Signs: 04/15/22 11:53 04/15/22 12:01 04/15/22 12:30 Temperature 98.6 F Temperature Source Oral Pulse Rate 130 H Pulse Rate [Brachial] 120 H Respiratory Rate 22 Blood Pressure 100/66 L 103/65 L Blood Pressure [Right Arm] 103/71 L Blood Pressure Mean 72 77 Blood Pressure Mean [Right Arm] 81 Blood Pressure Source [Right Arm] Automatic Cuff Blood Pressure Position [Right Arm] Standing 02 Sat by Pulse Oximetry 91 L 93 L Oxygen Delivery Method Nasal Cannula Oxygen Flow Rate (LPM) 2 04/15/22 13:01 Temperature Temperature Source Pulse Rate 100 H Pulse Rate [Brachial] Respiratory Rate Blood Pressure 107/79 L Blood Pressure [Right Arm] Blood Pressure Mean 84 Blood Pressure Mean [Right Arm] Blood Pressure Source [Right Arm] Blood Pressure Position [Right Arm] 02 Sat by Pulse Oximetry 92 L Oxygen Delivery Method Oxygen Flow Rate (LPM) - Lab Data Lab results reviewed: Yes: I reviewed the patient's lab results. Lab Results 04/15/22 12:05: WBC 6.4, RBC 3.69 L, Hgb 12.2 L, Hct 36.3 L, MCV 98.4 H, MCH 32.9 H, MCHC 33.4, RDW 17.7 H, Plt Count 104 L, MPV 10.6 H, Neut % (Auto) 86.4 H, Lymph % (Auto) 9.4 L, [place] % (Auto) 3.6, Eos % (Auto) 0.5, Baso % (Auto) 0.1, Neut # (Auto) 5.5, Lymph # (Auto) 0.6 L, [place] # (Auto) 0.2, Eos # (Auto) 0.0, Baso # (Auto) 0.0, Total Counted 100, Neutrophils % (Manual) 85 H, Lymphocytes % (Manual) 11, Monocytes % (Manual) 4, Nucleated RBCs 1, Platelet Estimate Slight decrease, Anisocytosis 1+, Macrocytosis 1+, Ovalocytes 1+, [place] Cells 1+ 04/15/22 12:05: Sodium 139, Potassium 3.8, Chloride 94 L, Carbon Dioxide 38 H, Anion Gap 10.8, BUN 48 H, Creatinine 1.70 H, Estimated Creat Clear 31, Estimated GFR 39 L, Est GFR ( Amer) 47 L, Glucose 99, Calcium 9.2, Total Bilirubin 2.6 H, AST 82 H, ALT 31, Alkaline Phosphatase 170 H, Total Protein 6.8, Albumin 3.2 L, Globulin 3.6 H, Albumin/Globulin Ratio 0.9 L 04/15/22 12:05: NT-Pro-B Natriuret Pep 2280 H 04/15/22 12:05: TSH 1.12, Free T4 Index 3.8 L, Thyroxine (T4) 9.1, T3 Uptake 42 H 04/15/22 12:06: Troponin I 0.11 H 04/15/22 12:06: Lactate 1.7 04/15/22 12:19: SARS-CoV-2 (PCR) Detected A, Influenza A Untype (PCR) Not detected, Influenza Type B (PCR) Not detected Result diagrams: 04/15/22 12:05 04/15/22 12:05 Orders (Tests/Meds): ED MEDICATIONS Generic Name Dose Route Start Last Admin Trade Name Rosalino PRN Reason Stop Dose Admin Apixaban 5 mg 04/16/22 09:00 Apixaban 5mg Tablet PO 05/16/22 08:59 DAILY [facility] Atorvastatin Calcium 40 mg 04/16/22 09:00 Atorvastatin 40mg Tablet PO 05/16/22 08:59 DAILY [facility] Fluticasone/Umeclidinium/Vilanterol 1 puff 04/16/22 09:00 Fluticasone/Umeclidin/Vilanter 100/62.5/25mcg Inhaler IH 05/16/22 08:59 DAILY [facility] Methotrexate 20 mg 04/15/22 14:15 04/15/22 14:33 Methotrexate 2.5mg Tablet PO 05/15/22 14:14 Not Given WEEKLY [facility] Metoprolol Succinate 100 mg 04/15/22 21:00 Metoprolol Succinate Xl 50mg Tablet PO 05/15/22 20:59 BID [facility] Non-Formulary Medication 1 each 04/16/22 09:00 Multivitamin [One-Daily Multi-Vitamin] PO 05/16/22 08:59
--- NOTE | 2022-04-15 12:00 | XR_ITS ---
FINAL REPORT CLINICAL HISTORY: Hypotension, pts nurse stated that the pt has been SOA and is coughing. COMPARISON: 02/15/2022 FINDINGS: SINGLE-VIEW CHEST There is cardiomegaly. The patient is status post median sternotomy. There is worsening bibasilar pneumonia or atelectasis. There is no pneumothorax. IMPRESSION: Worsening bibasilar pneumonia or atelectasis. Reviewed, Interpreted and Dictated by Merlin Mclaughlin III, MD Transcribed by Marta Beebe Authenticated and . [facility]
--- NOTE | 2022-04-15 12:11 | PC.NURSE ---
XR AT BEDSIDE
[2022-04-15 12:28] LABS: Chloride 94 mmol/L (98-107); Potassium 3.8 mmoL/L (3.5-5.1); Sodium 139 mmol/L (136-145)
--- NOTE | 2022-04-15 12:29 | ECG_ITS ---
APPROVED REPORT Exam: Resting ECG HR:142 bpm ECG Measurements Heart Rate 142 AXES QRSd 144 QRS 250 QT 339 T -21 QTc 421 Conclusion ATRIAL FLUTTER/TACHYCARDIA WITH RAPID VENTRICULAR RESPONSE RIGHT AXIS DEVIATION [QRS AXIS > 100] RIGHT BUNDLE BRANCH BLOCK [120+ ms QRS DURATION, UPRIGHT V1, 40+ ms S IN I/aVL/V4/V5/V6] PROBABLE ANTERIOR MYOCARDIAL INFARCTION , OF INDETERMINATE AGE [35 ms Q WAVE IN V3/V4] ST DEVIATION AND MODERATE T-WAVE ABNORMALITY, CONSIDER LATERAL ISCHEMIA [-0.1+ mV T-WAVE IN I/aVL/V5/V6] ABNORMAL ECG UNCONFIRMED REPORT Electronically signed by : Samuel Seals MD 04/17/2022 17:47:51
[2022-04-15 12:30] LABS: Basophils % 0.1 % (0.1-2.0); Eosinophils % 0.5 % (0.1-12.0); Hematocrit 36.3 % (42.0-52.0); Hemoglobin 12.2 g/dL (14.1-18.0); Lymphocytes # 0.6 K/mm3 (0.7-4.5); Lymphocytes % 9.4 % (10-50); MANUAL DIFFERENTIAL MANUAL DIFFERENTIAL (MANUAL DIFF); Mean Corpuscular HGB Conc 33.4 g/dL (31.8-35.4); Mean Corpuscular Hemoglobin 32.9 pg (27.0-31.2); Mean Corpuscular Volume 98.4 fl (80-94); Mean Platelet Volume 10.6 fl (7.4-10.4); Monocytes # 0.2 K/mm3 (0.1-1.0); Monocytes % 3.6 % (1.7-9.3); Neutrophils # 5.5 K/mm3 (1.8-7.8); Neutrophils % 86.4 % (37.0-80.0); Platelet Count 104 K/mm3 (142-424); Red Blood Count 3.69 M/mm3 (4.60-6.20); Red Cell Distribution Width 17.7 % (11.5-17.5); White Blood Count 6.4 K/mm3 (4.8-10.8)
[2022-04-15 12:31] LABS: Alanine Aminotransferase 31 U/L (12-78); Albumin Level 3.2 g/dl (3.5-5.0); Albumin/Globulin Ratio 0.9 (1.1-1.8); Alkaline Phosphatase 170 U/L (38-126); Aspartate Amino Transferase 82 U/L (17-59); Bilirubin,Total 2.6 mg/dl (0.2-1.3); Blood Urea Nitrogen 48 mg/dl (9-20); Creatinine Clearance Estimated 31 mL/min (50-200); Estimated Glomerular Filt Rate 39 ml/min (>60); GFR (African American) 47 ML/MIN (>60); Globulin 3.6 g/dL (1.3-3.2); Total Protein,Serum 6.8 g/dl (6.3-8.2)
[2022-04-15 12:32] LABS: Calcium 9.2 mg/dl (8.4-10.2); Glucose 99 mg/dl (74-100)
[2022-04-15 12:38] LABS: Anion Gap 10.8 mEq/L (5-15); Carbon Dioxide 38 mmol/L (22.0-30.0)
[2022-04-15 12:39] LABS: Lactic Acid 1.7 mmol/L (0.7-2.1)
[2022-04-15 12:42] LABS: Influenza A, PCR Not Detected (NotDetected); Influenza B, PCR Not Detected (NotDetected)
[2022-04-15 12:47] LABS: Troponin I 0.11 ng/ml (0.00-0.034)
--- NOTE | 2022-04-15 12:49 | PC.NURSE ---
O2 SAT 85-90 WITH 2L/NC. INCREASED TO 4L/NC
[2022-04-15 12:52] LABS: Lymphocytes % 11 % (10-50); Monocytes % 4 % (2-9); Neutrophils % 85 % (42-76); Nucleated Red Blood Cells 1; Total Cells Counted 100
[2022-04-15 12:53] LABS: Anisocytosis 1+; Burr Cells 1+; Macrocytosis 1+; Ovalocytes 1+; Platelet Estimate Slight Decrease
--- NOTE | 2022-04-15 13:24 | PC.NURSE ---
Spoke with family member at bedside and updated them on POC. Pt given warm blankets
--- NOTE | 2022-04-15 13:31 | PC.NURSE ---
ICE WATER PROVIDED, FAMILY AT BEDSIDE
[2022-04-15 13:32] LABS: NT Pro Brain Natriuretic Pep. 2280 pg/mL (0-450)
[2022-04-15 13:40] LABS: Coronavirus 19, PCR Detected (NotDetected)
[2022-04-15 13:44] LABS: T4 (Thyroxine) 9.1 ug/dl (5.53-11.0)
[2022-04-15 13:50] LABS: Triiodothryronine (T3) Uptake 42 % (23.5-40.5)
[2022-04-15 13:55] LABS: Free Thyroxine Index 3.8 ug/dL (5.93-13.13)
--- NOTE | 2022-04-15 13:56 | PC.NURSE ---
SPEAKING WITH DR. THORPE ABOUT ADMISSION
[2022-04-15 13:58] LABS: Thyroid Stimulating Hormone 1.12 uIU/mL (0.465-4.68)
--- NOTE | 2022-04-15 13:59 | PC.NURSE ---
DR. THORPE WILL ADMIT PT
--- NOTE | 2022-04-15 14:15 | PC.NURSE ---
called care management of admission. stated obs admission
--- NOTE | 2022-04-15 14:31 | PC.NURSE ---
UPDATING FAMILY AT THIS TIME
--- NOTE | 2022-04-15 15:08 | PC.NURSE ---
REPORT GIVEN Tiana SOLIZ RN
--- NOTE | 2022-04-15 15:09 | HMH.PHAVTE ---
[facility] Pharmacy VTE Monitoring - Patient Demographics Admission date: 04/15/22 Report Date: 04/15/22 Time: 15:09 Allergies/Adverse Reactions: Patient Allergies No Known Allergies Allergy (Verified 12/16/21 13:54) Height: 1.73 m Weight: 65.771 kg Patient Problems: Current Active Problems Pneumonia due to 2019-nCoV (Acute) Atrial fibrillation (Acute) Renal insufficiency (Acute) - VTE Risk Labs: VTE Related Lab Results Hgb 12.2 g/dL (14.1-18.0) L 04/15/22 12:05 Hct 36.3 % (42.0-52.0) L 04/15/22 12:05 Plt Count 104 K/mm3 (142-424) L 04/15/22 12:05 BUN 48 mg/dl (9-20) H 04/15/22 12:05 Creatinine 1.70 mg/dl (0.66-1.25) H 04/15/22 12:05 Estimated Creat Clear 31 mL/min (50-200) 04/15/22 12:05 - Prophylaxis VTE Prophylaxis Ordered?: Yes Types of VTE Prophylaxis: TEDS Thigh High, TEDS Knee High Location of Applied Device: Bilateral Lower Extremeties Pharmacologic Type: Other (ELIQUIS)
--- NOTE | 2022-04-15 15:41 | PC.WOUNDNOTE ---
Pt arrived to the floor at this time
[2022-04-15 15:44] LABS: INR 1.32 (0.9-1.1); Prothrombin Time 14.6 seconds (10.1-12.5)
[2022-04-15 16:42] LABS: Troponin I 0.11 ng/ml (0.00-0.034)
--- NOTE | 2022-04-15 17:09 | HMH.HP ---
*Admission Date: 04/15/22 <Marta Honeycutt - 04/15/22 17:49> *Chief complaint: Hypotension, tachycardia, with altered mental status. <Marta Honeycutt - 04/15/22 17:49> *History of present illness: Mr. Lao is an 81-year-old -[place] with a history of coronary artery disease status post PCI in 2017, HFrEF, COPD on continuous oxygen, atrial fibs, hypertension, ulcerative colitis, OPA, sleep apnea, history of malignant neoplasm of the bladder, GERD who recently 2 weeks ago tested positive for COVID. He was removed from isolation protocol but has continued to decline. Nursing staff report that he is not eating and drinking very well and has a congested cough. They also state that he has been confused which is unusual for him. Today with visit by Marta Honeycutt APRN he was found to have a low blood pressure at 79/52 with repeat manually at 88/56. Heart rate was 120-130. He was able to assist with some of his exam but slept whenever left alone. He appeared to be dry. He had no leg edema. Thus he was transferred to [facility] emergency room via EMS for evaluation. His Phuong was notified. In the emergency room he continued to test positive for COVID. He was noted to be afebrile with a heart rate 120 and a blood pressure of 103/71-103/65. O2 sats ranged 91-93 on oxygen. Laboratory data revealed a white blood cell count of 6400 with a hemoglobin of 12.2 and hematocrit of 36.3. BUN was 48 creatinine 1.7. Total bilirubin was again elevated at 2.6 with an AST of 82 and alkaline phosphatase of 170. Albumin was low at 3.2. BNP was 2280. TSH was normal at 1.12. Lactate was 1.7. Troponin I was 0.11x2. Patient received a liter of IV fluids. Chest x-ray was abnormal with worsening bilateral infiltrates. EKG showed atrial fibrillation with rapid ventricular response at 142. To note patient was admitted to [facility] for short-term rehab following extended hospitalization at [place] for heart failure. He has made progress with physical therapy. Visit has been complicated by ongoing congestive heart failure with leg edema and then faviola COVID. <Marta Honeycutt - 04/15/22 17:49> HMH History Medical History: Reports:: Renal Disease (large renal cyst), Renal Insufficiency <ImmanuelLawrence macias Bartolome - 04/15/22 18:46> Reports:: Asthma, Atrial Fibrillation, BPH, Cancer, Chronic Obstructive Pulmonary Disease (COPD), Coronary Artery Disease, Gastroesophageal Reflux Disease(GERD), Hiatal Hernia, Hyperlipidemia, Hypertension, Lung Disease Denies:: Diabetes Mellitus Type 1, Diabetes Mellitus Type 2, Internal Pacemaker, MRSA, Seizures <Marta Honeycutt 04/15/22 17:49> *Have you ever received a pneumonia vaccine?: Yes <Marta Honeycutt 04/15/22 17:49> *Have you received a flu vaccine this season?: Yes <Marta Honeycutt 04/15/22 17:49> Other Medical History: Reports: Other (Ulcerative colitis) <Lawrence Gambino 04/15/22 18:43> Reports: Arthritis, Cataracts, Other <Marta Honeycutt 04/15/22 17:49> Laterality Cases: Right: Arthroscopy Knee, Arthroscopy Shoulder, Bilateral: Tonsillectomy, Total Hip Replacement <Marta Honeycutt 04/15/22 17:49> Other Surgeries: Yes: No Previous Surgery, Cancer Surgery, Cardiac Catheterization, Colonoscopy, Coronary Stent. No: Pacemaker <Marta Honeycutt 04/15/22 17:49> Amputation: No <Marta Honeycutt 04/15/22 17:49> Fractures: Yes <Marta Honeycutt 04/15/22 17:49> - *Social History Smoking Status: Never smoker <Marta Honeycutt 04/15/22 17:49> Alcohol Intake: never <Marta Honeycutt 04/15/22 17:49> Substance Use Type: denies use <Marta Honeycutt 04/15/22 17:49> *Occupational Status:: retired <Marta Honeycutt 04/15/22 17:49> Housing: alf <Marta Honeycutt 04/15/22 17:49> Household Members: other <Marta Honeycutt 04/15/22 17:49> *Travel in the last 8 weeks: None <Marta Honeycutt 04/15/22 17:49> Family Hx:: Cancer <Ibarra
[2022-04-15 21:10] LABS: Troponin I 0.11 ng/ml (0.00-0.034)
[2022-04-16] VITALS (17 sets, daily range): BP systolic 87–145; BP diastolic 48–93; PULSE 72–120; RESP 16–20; TEMP 36.4–36.9; O2SAT 87–99; BMI 23.6
--- NOTE | 2022-04-16 00:57 | PC.NURSE ---
pt rounded on at 21:00, pt requested his lights be turned out and went to sleep, and did not express any other needs at that time.
--- NOTE | 2022-04-16 04:38 | PC.NURSE ---
pt has rested well this shift. O2 weaned to 2L at this time. diminished lungs sounds on auscultation. non-productive cough present. currently he is alert to person, birthday, and time, arousable to voice, and follows commands. PERLLA. no skin issues. MAP 73-87 this shift. A-fib on telemetry, rate has been between 84-123. he has been incontinent of urine and bowel this shift. he had 1 small BM and 3 voids. he takes his medication whole with water and has no issues
--- NOTE | 2022-04-16 07:18 | HMH.PHAINT ---
MEDICATION RECONCILIATION COMPLETED ON PATIENT USING MAR FROM ASSISTED. -JANINA ERNEE, LEEANNAD
[2022-04-16 08:12] LABS: Alanine Aminotransferase 27 U/L (12-78); Albumin Level 2.7 g/dl (3.5-5.0); Albumin/Globulin Ratio 0.8 (1.1-1.8); Alkaline Phosphatase 121 U/L (38-126); Anion Gap 11.3 mEq/L (5-15); Aspartate Amino Transferase 81 U/L (17-59); Bilirubin,Total 2.3 mg/dl (0.2-1.3); Blood Urea Nitrogen 46 mg/dl (9-20); Calcium 8.4 mg/dl (8.4-10.2); Carbon Dioxide 27 mmol/L (22.0-30.0); Chloride 106 mmol/L (98-107); Creatinine Clearance Estimated 41 mL/min (50-200); Estimated Glomerular Filt Rate 49 ml/min (>60); GFR (African American) 59 ML/MIN (>60); Globulin 3.4 g/dL (1.3-3.2); Glucose 166 mg/dl (74-100); Potassium 5.3 mmoL/L (3.5-5.1); Sodium 139 mmol/L (136-145); Total Protein,Serum 6.1 g/dl (6.3-8.2)
--- NOTE | 2022-04-16 08:31 | PC.NURSE ---
Notified Dr Gambino during am rounds of pt's 5 lb weight gain
--- NOTE | 2022-04-16 08:31 | HMH.ACPN2 ---
<Marta Honeycutt - Last Filed: 04/16/22 08:31> Internal Medicine - PN: Subj *Date: 04/16/22 *Time: 08:31 Interval history: Patient indicates that he does feel better. He is hungry for breakfast but cannot manipulate to eat with pulse ox on. Assisted with breakfast and he ate very well. No difficulty noted with swallowing. He denies chest pain. He does state he is short of breath. Exam Vital signs and Labs for Last 24 Hours: Temp Pulse Resp BP Pulse Ox 97.9 F 100 H 17 145/72 H 94 L 04/16/22 07:56 04/16/22 07:56 04/16/22 07:56 04/16/22 07:56 04/16/22 07:56 Laboratory Results - last 24 hr 04/15/22 12:05: WBC 6.4, RBC 3.69 L, Hgb 12.2 L, Hct 36.3 L, MCV 98.4 H, MCH 32.9 H, MCHC 33.4, RDW 17.7 H, Plt Count 104 L, MPV 10.6 H, Neut % (Auto) 86.4 H, Lymph % (Auto) 9.4 L, [place] % (Auto) 3.6, Eos % (Auto) 0.5, Baso % (Auto) 0.1, Neut # (Auto) 5.5, Lymph # (Auto) 0.6 L, [place] # (Auto) 0.2, Eos # (Auto) 0.0, Baso # (Auto) 0.0, Total Counted 100, Neutrophils % (Manual) 85 H, Lymphocytes % (Manual) 11, Monocytes % (Manual) 4, Nucleated RBCs 1, Platelet Estimate Slight decrease, Anisocytosis 1+, Macrocytosis 1+, Ovalocytes 1+, Maureen Cells 1+ 04/15/22 12:05: Sodium 139, Potassium 3.8, Chloride 94 L, Carbon Dioxide 38 H, Anion Gap 10.8, BUN 48 H, Creatinine 1.70 H, Estimated Creat Clear 31, Estimated GFR 39 L, Est GFR ( Amer) 47 L, Glucose 99, Calcium 9.2, Total Bilirubin 2.6 H, AST 82 H, ALT 31, Alkaline Phosphatase 170 H, Total Protein 6.8, Albumin 3.2 L, Globulin 3.6 H, Albumin/Globulin Ratio 0.9 L 04/15/22 12:05: NT-Pro-B Natriuret Pep 2280 H 04/15/22 12:05: TSH 1.12, Free T4 Index 3.8 L, Thyroxine (T4) 9.1, T3 Uptake 42 H 04/15/22 12:05: PT 14.6 H, INR 1.32 H 04/15/22 12:06: Troponin I 0.11 H 04/15/22 12:06: Lactate 1.7 04/15/22 12:19: SARS-CoV-2 (PCR) Detected A, Influenza A Untype (PCR) Not detected, Influenza Type B (PCR) Not detected 04/15/22 15:05: Troponin I 0.11 H 04/15/22 19:53: Troponin I 0.11 H I & O for Last 24 hours: Intake & Output 04/13/22 04/14/22 04/15/22 04/16/22 11:59 11:59 11:59 11:59 Intake Total 960 / 960 Output Total 100 / 100 Balance 860 / 860 Weight 145 lb 155 lb 10.342 oz - Constitutional no acute distress Comments: Sitting up eating breakfast with assistance - *Routine Respiratory Exam Present: crackles (Bilateral coarse anteriorly) - *Routine Cardiovascular Exam Present: irregularly irregular (100/min) - *Routine Abdominal Exam Present: soft, normoactive bowel sounds. Absent: tenderness - *Routine Extremities Exam Present: edema (Some bilateral ankle edema.), SAMMY stockings - *Routine Neurological Exam Present: alert, normal speech (Very soft-spoken) Assessment and Plan (1) HCAP (healthcare-associated pneumonia) Status: Acute Category: Medical Code(s): J18.9 - Pneumonia, unspecified organism (2) Atrial fibrillation with rapid ventricular response Status: Acute Category: Medical Code(s): I48.91 - Unspecified atrial fibrillation (3) Hypotension Status: Acute Category: Medical Code(s): I95.9 - Hypotension, unspecified (4) Pneumonia due to 2019-nCoV Status: Acute Category: Medical Code(s): U07.1 - COVID-19; J12.82 - Pneumonia due to coronavirus disease 2019 (5) HFrEF (heart failure with reduced ejection fraction) Status: Chronic Category: Medical Code(s): I50.20 - Unspecified systolic (congestive) heart failure (6) COPD, very severe Status: Chronic Category: Medical Code(s): J44.9 - Chronic obstructive pulmonary disease, unspecified (7) Coronary artery disease Status: Chronic Category: Medical Code(s): I25.10 - Atherosclerotic heart disease of [place] coronary artery without angina pectoris (8) GERD (gastroesophageal reflux disease) Status: Acute Category: Medical Code(s): K21.9 - Gastro-esophageal reflux disease without esophagitis (9) Atrial fibrillation Status: Chronic Qualifiers: A
--- NOTE | 2022-04-16 09:57 | SW/DCPLANNER ---
Addendum entered by Cleo Whitney 04/23/22 10:34: Updated patient information has been faxed to [facility]. Addendum entered by Cleo Whitney 04/21/22 09:27: Updated patient information has been faxed to [facility] alvarez/ Peter Braxton. Addendum entered by Cleo Whitney 04/17/22 09:18: Updated patient information has been faxed to Olga Lidia alvarez/ Peter Braxton. Original Note: This patient currently resides at [facility]: per Ol[facility] alvarez/ Peter Braxton patient is SNF level of care. I will continue to follow up with Olga Lidia until patient is medically stable for discharge. Discharge date is unknown at this time.
--- NOTE | 2022-04-16 13:51 | HMH.PULMCON ---
*Admission Date: 04/15/22 *Reason for consult:: Acute on chronic hypoxic respiratory failure, positive COVID-19 PCR, *History of present illness: Patient is a poor historian, limited history obtained from the patient along with chart review. Ms. Lao is a 81-year-old male prior smoker greater than 6 years ago, carries a diagnosis of COPD and congestive heart failure was sent from snf secondary to worsening altered mentation and respiratory distress along with low blood pressure. Patient found to be positive for COVID-19 pneumonia and pulmonary was called for further evaluation [facility] History Medical History: Reports:: Asthma, Atrial Fibrillation, BPH, Cancer, Chronic Obstructive Pulmonary Disease (COPD), Coronary Artery Disease, Gastroesophageal Reflux Disease(GERD), Hiatal Hernia, Hyperlipidemia, Hypertension, Lung Disease, Renal Disease (large renal cyst), Renal Insufficiency Denies:: Diabetes Mellitus Type 1, Diabetes Mellitus Type 2, Internal Pacemaker, MRSA, Seizures *Have you ever received a pneumonia vaccine?: Yes *Have you received a flu vaccine this season?: Yes Other Medical History: Reports: Arthritis, Cataracts, Other (Ulcerative colitis) Laterality Cases: Right: Arthroscopy Knee, Arthroscopy Shoulder, Bilateral: Tonsillectomy, Total Hip Replacement Other Surgeries: Yes: No Previous Surgery, Cancer Surgery, Cardiac Catheterization, Colonoscopy, Coronary Stent. No: Pacemaker Amputation: No Fractures: Yes - *Social History Smoking Status: Never smoker Alcohol Intake: never Substance Use Type: denies use *Occupational Status:: retired Housing: snf Household Members: other *Travel in the last 8 weeks: None Family Hx:: Cancer ROS - Review of Systems Limited review of systems obtained - Cons Reports anorexia, Reports fatigue, Reports fever(s), Reports lack of energy - Eyes Reports blurry vision - ENT Denies bleeding gums - Card Reports shortness of breath, Reports shortness of breath with activity - Resp Respiratory: Reports chest congestion, Reports cough, Reports excessive phlegm production - GI Gastrointestingal: Reports: abdominal pain, dyspepsia - Psych Denies thoughts of hurting/killing others, Denies thoughts of hurting/killing yourself Meds Home Medications Medication Instructions Recorded Confirmed Type metHOTREXate sodium [metHOTREXate 20 mg PO TU 12/01/18 04/16/22 History 2.5mg Tablet] atorvastatin 40 mg tablet 40 mg PO HS tab 08/12/21 04/16/22 History fluticasone fur. 100 mcg-umeclid 1 puff IH DAILY 08/12/21 04/16/22 History 62.5 mcg-vilant 25 mcg inhalat.powder Apixaban [Eliquis 5mg Tablet] 5 mg PO BID 04/15/22 04/16/22 History Multivitamin [One-Daily 1 each PO DAILY 04/15/22 04/15/22 History Multi-Vitamin] Pantoprazole Sodium 40 mg PO DAILY 04/15/22 04/15/22 History Potassium Chloride 20 meq PO DAILY 04/15/22 04/15/22 History Psyllium Husk (with Sugar) 369 gm PO DAILY 04/15/22 04/15/22 History [Reguloid Powder] Torsemide [Demadex] 40 mg PO DAILY 04/15/22 04/16/22 History Acetaminophen [Acetaminophen Extra 500 mg PO Q4HP PRN 04/16/22 04/16/22 History Strength] Dextran 70/Hypromellose/Pf 1 each OP QID 04/16/22 04/16/22 History [Artificial Tears Drops] Meclizine HCl 12.5 mg PO TIDP PRN 04/16/22 04/16/22 History Metoprolol Tartrate [Lopressor 100 100 mg PO BID 04/16/22 04/16/22 History mg Tablets] Allergies Allergy/AdvReac Type Severity Reaction Status Date / Time No Known Allergies Allergy Verified 12/16/21 13:54 Exam - Constitutional Constitutional:: Absent: no acute distress, comfortable - HENMT Exam HENMT: Present: normocephalic - Eye Exam Eyes:: Present: normal appearance both eyes and related structures - Neck Exam Neck:: Present: normal visual inspection - Respiratory Exam Respiratory:: Present: respiratory distress, crackles. Absent: able to speak in complete sentences, wheezing - Cardiovascular Exam
[2022-04-16 14:39] LABS: C-Reactive Protein 73.1 mg/L (0-4)
[2022-04-16 14:42] LABS: D-Dimer 1.17 ug/mL (0.0-0.5)
[2022-04-16 15:37] LABS: ABG Base Excess 2.7 mmol/L (-2.4-2.3); ABG HCO3 26.1 mmhg (22.0-26.0); ABG Oxygen Saturation 91 % (90-100); ABG PCO2 35.5 mmhg (35.0-45.0); ABG PH 7.49 mmol/L (7.35-7.45); ABG PO2 65.1 mmhg (80-100); ABG TCO2 27.2 mmhg (23-27)
[2022-04-16 15:38] LABS: Allen's Test ACCEPTABLE; Oxygen 3 %; Source Left Radial
[2022-04-16 15:39] LABS: Chloride, Arterial 102 mmol/L (98-107); Potassium, Arterial 3.4 mmoL/L (3.5-5.1); Sodium Arterial 134 mmol/L (137-145)
[2022-04-16 15:40] LABS: Calcium, Arterial 4.6 mg/dL (8.5-10.1); Lactate Arterial 2.5 mmol/L (0.4-2.0)
--- NOTE | 2022-04-16 16:26 | CT_ITS ---
PROCEDURE INFORMATION: Exam: CTA Chest With Contrast Exam date and time: 04/16/2022 4:53 PM Age: 81 years old Clinical indication: Other: Hypoxia; Prior surgery TECHNIQUE: Imaging protocol: Computed tomographic angiography of the chest with contrast. 3D rendering (Not supervised by radiologist): MIP and/or 3D reconstructed images were created by the technologist. Radiation optimization: All CT scans at this facility use at least one of these dose optimization techniques: automated exposure control; mA and/or kV adjustment per patient size (includes targeted exams where dose is matched to clinical indication); or iterative reconstruction. Contrast material: ISOVUE 370; Contrast volume: 70 ml; Contrast route: INTRAVENOUS (IV); COMPARISON: CR XR CHEST PORTABLE 04/15/2022 12:08 PM FINDINGS: Pulmonary arteries: There is a good contrast bolus. No large, central or segmental emboli are seen. Peripheral vessels are poorly evaluated due to extensive motion artifacts and streak artifacts on this exam, with a mottled heterogeneous appearance, and cannot exclude some small peripheral emboli, particularly in the left lower lobe. Aorta: There is no aortic aneurysm. Multiple atherosclerotic calcified plaques. Lungs: Pulmonary emphysematous changes greatest in the lung apices. Hyperinflation. Patchy ground-glass opacities in the mid and lower lungs suspicious for mild ground-glass edema, or pneumonia. No consolidation. Dependent atelectasis in the posterior lower lungs. Calcified right middle lobe and upper lobe granulomas. No suspicious nodules, tiny lesions could be obscured by motion. Pleural spaces: Unremarkable. No significant pleural effusion. No pneumothorax. Heart: Cardiomegaly. Multiple coronary artery calcifications present. A very small pericardial effusion . A borderline elevated RV/LV ratio, approximate 1. Right atrium is also dilated. There is mild reflux of contrast into the IVC, suggesting right heart disease. This could be chronic rather than acute in nature. Lymph nodes: Multiple small mediastinal and hilar nodes.No significantly enlarged lymph nodes by short axis criteria. Gallbladder and bile ducts: Mildly distended gallbladder. No calcified stones as visualized, the gallbladder is incompletely imaged. Kidneys and ureters: Likely 9 mm posterior left renal cortical cyst series 3, image 87, incompletely imaged, simple appearance as visualized. Bones/joints: Sternotomy wires. There are spinal degenerative changes, with multilevel disc narrrowing and spondylosis. Chronic appearing anterior wedge deformities of T11 and T12 vertebrae. No acute appearing fracture or high-grade listhesis, as visualized. Soft tissues: There are no soft tissue masses or fluid collections. IMPRESSION: 1. Motion artifacts significantly limit the exam. No large, central or segmental emboli, but there is a heterogeneous appearance of smaller peripheral vessels and small peripheral emboli are not excluded. 2. No thoracic aortic aneurysm. 3. Cardiomegaly. Coronary artery disease. 4. Findings of right heart disease, borderline dilated right ventricle, dilated right atrium, and mild reflux of contrast into the IVC. 5. Underlying pulmonary emphysema with cystic changes and interstitial scarring. 6. Superimposed patchy ground-glass opacities in the lungs, which could be edema or pneumonia. 7. Additional nonemergency and chronic findings as above. COMMENTS: Consistent with the [employer]'s Incidental Findings Committee white paper (J Am Supriya Radiol 2018): Any incidental renal lesion less than 1 cm or classified as too small to characteriz
--- NOTE | 2022-04-16 18:04 | PC.NURSE ---
pt is alert and oriented to person. knee high TEDS are on bilateral lower extremities. receiving 4L via nasal canula. call light is in reach, bed in lowest positon and wheels locked, bed alarm is on.
[2022-04-17] VITALS (13 sets, daily range): BP systolic 90–126; BP diastolic 53–67; PULSE 64–130; RESP 18–21; TEMP 34.6–36.6; O2SAT 86–97; BMI 23.6
--- NOTE | 2022-04-17 03:11 | PC.NURSE ---
pt rounded on throughout the night. assisted pt with changing their brief and giving them a bed bath and linen change. pt has also been turned every 2 hours by me and the other tech. pt hasnt requested any other needs at this time.
--- NOTE | 2022-04-17 03:23 | PC.NURSE ---
Patient wearing 3L NC sating above 90%. Patient has been alert to self only this shift. Patient did have a few soft pressures over night non symptomatic has since resolved. Patient did become hypothermic throughout night. Temp found to be 94.9F rectal at 0330. Porsche hugger applied along with warm blankets and turning patients air to 74.
[2022-04-17 07:38] LABS: Basophils % 0.1 % (0.1-2.0); Eosinophils % 0.6 % (0.1-12.0); Hemoglobin 10.4 g/dL (14.1-18.0); Lymphocytes # 0.3 K/mm3 (0.7-4.5); Mean Corpuscular HGB Conc 34.5 g/dL (31.8-35.4); Mean Corpuscular Hemoglobin 33.6 pg (27.0-31.2); Mean Corpuscular Volume 97.4 fl (80-94); Mean Platelet Volume 10.6 fl (7.4-10.4); Monocytes # 0.1 K/mm3 (0.1-1.0); Monocytes % 2.4 % (1.7-9.3); Neutrophils # 5.4 K/mm3 (1.8-7.8); Neutrophils % 91.9 % (37.0-80.0); Platelet Count 59 K/mm3 (142-424); Red Blood Count 3.08 M/mm3 (4.60-6.20); Red Cell Distribution Width 17.7 % (11.5-17.5); White Blood Count 5.9 K/mm3 (4.8-10.8)
[2022-04-17 07:46] LABS: MANUAL DIFFERENTIAL MANUAL DIFFERENTIAL (MANUAL DIFF)
[2022-04-17 07:49] LABS: Alanine Aminotransferase 25 U/L (12-78); Albumin Level 2.4 g/dl (3.5-5.0); Albumin/Globulin Ratio 0.8 (1.1-1.8); Alkaline Phosphatase 124 U/L (38-126); Anion Gap 8.3 mEq/L (5-15); Aspartate Amino Transferase 67 U/L (17-59); Bilirubin,Total 1.9 mg/dl (0.2-1.3); Blood Urea Nitrogen 41 mg/dl (9-20); Calcium 8.1 mg/dl (8.4-10.2); Carbon Dioxide 28 mmol/L (22.0-30.0); Chloride 104 mmol/L (98-107); Creatinine Clearance Estimated 52 mL/min (50-200); Estimated Glomerular Filt Rate 64 ml/min (>60); GFR (African American) 78 ML/MIN (>60); Globulin 2.9 g/dL (1.3-3.2); Glucose 127 mg/dl (74-100); Potassium 3.3 mmoL/L (3.5-5.1); Sodium 137 mmol/L (136-145); Total Protein,Serum 5.3 g/dl (6.3-8.2)
[2022-04-17 07:54] LABS: NT Pro Brain Natriuretic Pep. 6150 pg/mL (0-450)
[2022-04-17 08:01] LABS: Anisocytosis 1+; Burr Cells 1+; Lymphocytes % 6 % (10-50); Macrocytosis 1+; Monocytes % 2 % (2-9); Neutrophils % 92 % (42-76); Ovalocytes 1+; Platelet Estimate Marked Decrease; Poikilocytosis 1+; Total Cells Counted 100
--- NOTE | 2022-04-17 09:02 | HMH.ACPN2 ---
<Bel Stevenson - Last Filed: 04/17/22 09:02> Internal Medicine - PN: Subj *Date: 04/17/22 *Time: 09:02 Interval history: Patient denies any pain today. He is removed his Bear hugger because he says he is hot. He did try to eat some breakfast. Exam Vital signs and Labs for Last 24 Hours: Temp Pulse Resp BP Pulse Ox 95.6 F L 68 18 100/53 L 86 L 04/17/22 06:27 04/17/22 06:24 04/17/22 03:06 04/17/22 03:06 04/17/22 06:24 Laboratory Results - last 24 hr 04/16/22 14:02: ABG Sodium 134 L, ABG Potassium 3.4 L, ABG Chloride 102, ABG Lactate 2.5 H, Arterial Blood Potassium 3.4 L, Arterial Blood Chloride 102 04/16/22 14:02: Specimen Source Left radial, O2 % 3, ABG pH 7.49 H, ABG pCO2 35.5, ABG pO2 65.1 L, ABG HCO3 26.1 H, ABG Total CO2 27.2 H, ABG O2 Saturation 91, ABG Base Excess 2.7 H, Arik Test Acceptable 04/16/22 14:20: D-Dimer 1.17 H 04/16/22 14:20: C-Reactive Protein 73.1 H 04/17/22 07:20: WBC 5.9, RBC 3.08 L, Hgb 10.4 L, Hct 30.0 L, MCV 97.4 H, MCH 33.6 H, MCHC 34.5, RDW 17.7 H, Plt Count 59 L D, MPV 10.6 H, Neut % (Auto) 91.9 H, Lymph % (Auto) 5.0 L, [place] % (Auto) 2.4, Eos % (Auto) 0.6, Baso % (Auto) 0.1, Neut # (Auto) 5.4, Lymph # (Auto) 0.3 L, [place] # (Auto) 0.1, Eos # (Auto) 0.0, Baso # (Auto) 0.0, Total Counted 100, Neutrophils % (Manual) 92 H, Lymphocytes % (Manual) 6 L, Monocytes % (Manual) 2, Platelet Estimate Marked decrease, Poikilocytosis 1+, Anisocytosis 1+, Macrocytosis 1+, Ovalocytes 1+, Maureen Cells 1+ 04/17/22 07:20: Sodium 137, Potassium 3.3 L D, Chloride 104, Carbon Dioxide 28, Anion Gap 8.3, BUN 41 H, Creatinine 1.10 D, Estimated Creat Clear 52, Estimated GFR 64, Est GFR ( Amer) 78 D, Glucose 127 H D, Calcium 8.1 L, Total Bilirubin 1.9 H, AST 67 H, ALT 25, Alkaline Phosphatase 124, NT-Pro-B Natriuret Pep 6150 H, Total Protein 5.3 L, Albumin 2.4 L D, Globulin 2.9, Albumin/Globulin Ratio 0.8 L I & O for Last 24 hours: Intake & Output 04/14/22 04/15/22 04/16/22 04/17/22 11:59 11:59 11:59 11:59 Intake Total 960 / 960 3367 / 3367 Output Total 100 / 100 Balance 860 / 860 3367 / 3367 Weight 145 lb 155 lb 10.342 oz 156 lb 4.924 oz - Constitutional no acute distress - *Routine Respiratory Exam Present: decreased breath sounds, crackles - *Routine Cardiovascular Exam Present: irregularly irregular - *Routine Abdominal Exam Present: soft, normoactive bowel sounds. Absent: tenderness - *Routine Extremities Exam Absent: cyanosis, clubbing, edema - *Routine Skin Exam Present: warm. Absent: rash - *Routine Neurological Exam Present: alert, oriented X3 Assessment and Plan (1) HCAP (healthcare-associated pneumonia) Status: Acute Category: Medical Code(s): J18.9 - Pneumonia, unspecified organism (2) Atrial fibrillation with rapid ventricular response Status: Acute Category: Medical Code(s): I48.91 - Unspecified atrial fibrillation (3) Hypotension Status: Acute Category: Medical Code(s): I95.9 - Hypotension, unspecified (4) Pneumonia due to 2019-nCoV Status: Acute Category: Medical Code(s): U07.1 - COVID-19; J12.82 - Pneumonia due to coronavirus disease 2019 (5) COPD, very severe Status: Chronic Category: Medical Code(s): J44.9 - Chronic obstructive pulmonary disease, unspecified (6) Coronary artery disease Status: Chronic Category: Medical Code(s): I25.10 - Atherosclerotic heart disease of [place] coronary artery without angina pectoris (7) GERD (gastroesophageal reflux disease) Status: Acute Category: Medical Code(s): K21.9 - Gastro-esophageal reflux disease without esophagitis (8) Renal insufficiency Status: Chronic Category: Medical Code(s): N28.9 - Disorder of kidney and ureter, unspecified (9) Ulcerative colitis Status: Acute Category: Medical Code(s): K51.90 - Ulcerative colitis, unspecified, without complications (10) Protein calorie malnutrition Status: Acute Category: Medical Code(s): E46 -
--- NOTE | 2022-04-17 09:30 | HMH.PULMPN ---
Internal Medicine - PN: Subj *Date: 04/17/22 *Time: 12:38 Interval history: No acute respiratory vents overnight. Admits improvement in his respiratory status. Exam - Constitutional Constitutional:: Present: no acute distress. Absent: comfortable - HENMT Exam HENMT: Present: normocephalic - Eye Exam Eyes:: Present: normal appearance both eyes and related structures - Neck Exam Neck:: Present: normal visual inspection - Respiratory Exam Respiratory:: Present: able to speak in complete sentences, no respiratory distress, crackles, wheezing - Cardiovascular Exam Cardiac:: Present: S1, S2 - GI Exam GI:: Present: soft - Skin Exam Skin: Present: warm - Neurological Exam Neurological: Present: alert, awake - Extremities Exam Extremities: Present: no cyanosis, no clubbing Assessment and Plan (1) HCAP (healthcare-associated pneumonia) Status: Acute Category: Medical Code(s): J18.9 - Pneumonia, unspecified organism (2) Atrial fibrillation with rapid ventricular response Status: Acute Category: Medical Code(s): I48.91 - Unspecified atrial fibrillation (3) Hypotension Status: Acute Category: Medical Code(s): I95.9 - Hypotension, unspecified (4) Pneumonia due to 2019-nCoV Status: Acute Category: Medical Code(s): U07.1 - COVID-19; J12.82 - Pneumonia due to coronavirus disease 2019 (5) HFrEF (heart failure with reduced ejection fraction) Status: Chronic Category: Medical Code(s): I50.20 - Unspecified systolic (congestive) heart failure (6) COPD, very severe Status: Chronic Category: Medical Code(s): J44.9 - Chronic obstructive pulmonary disease, unspecified (7) Coronary artery disease Status: Chronic Category: Medical Code(s): I25.10 - Atherosclerotic heart disease of [place] coronary artery without angina pectoris (8) GERD (gastroesophageal reflux disease) Status: Acute Category: Medical Code(s): K21.9 - Gastro-esophageal reflux disease without esophagitis (9) Atrial fibrillation Status: Chronic Qualifiers: Atrial fibrillation type: longstanding persistent Qualified Code(s): I48.11 - Longstanding persistent atrial fibrillation Category: Medical Code(s): I48.91 - Unspecified atrial fibrillation (10) Renal insufficiency Status: Chronic Category: Medical Code(s): N28.9 - Disorder of kidney and ureter, unspecified (11) Ulcerative colitis Status: Acute Category: Medical Code(s): K51.90 - Ulcerative colitis, unspecified, without complications (12) Protein calorie malnutrition Status: Acute Category: Medical Code(s): E46 - Unspecified protein-calorie malnutrition - Assessment and plan all Dx Assessment and Plan for all problems:: #Acute hypoxic respiratory failure: #Hospital-acquired pneumonia: 81-year-old male prior smoker greater than [id number] smoking history carries a diagnosis COPD. As per chart review patient does have a history of COVID-19 pneumonia in February 2022 and also had a positive test twice including this hospital admission. Afebrile. No evidence of leukocytosis. Chest x-ray on admission showed bilateral lower lobe predominant patchy airspace disease. Chest x-ray appears improved from his most recent chest x-ray from February 2022 with similar distribution of airspace disease. Patient also has been on methotrexate, unclear at this point of time. Interval update: Improving mentation and respiratory status. CTA no obvious evidence of segmental pulmonary embolism. Significant motion artifact. Bilateral upper lobe predominant emphysematous changes and lower lobe predominant groundglass opacities. bi-ventricular enlargement noted concerning for congestive heart failure along with pulmonary hypertension. Renal function improving. Blood culture NG x 48 hrs Plan: -Continue nasal cannula oxygen supplementation to maintain O2 saturation goal of 90% and above, currently on 3 L nasal cannula. -Continue current inhaler th
--- NOTE | 2022-04-17 10:36 | DIET.NUTRFU ---
Spoke to provider, patient triggers for PCM d/t wt loss and poor po intake. Patient is only consuming 25% of meals. He needs additional assistance with meals, setup with encouragement. He is on ensure with trays and seems to like them. Drank 100% of strawberry ensure for breakfast along with most of eggs. He does not like the bailey, prefers sausage. Notified kitchen of changes.
--- NOTE | 2022-04-17 16:24 | PC.NURSE ---
Pt is alert to self. He was on 3L NC but has refused to keep it on. O2 saturations have been 88-90% on RA. He's been bbb/afib on telemetry. Appetite has been poor even though he has been assisted with meals. He is unable to produce a sputum as he does not have a cough. Bed is locked and in the lowest position, call light is within reach.
[2022-04-18] VITALS (15 sets, daily range): BP systolic 90–123; BP diastolic 57–88; PULSE 92–175; RESP 20–26; TEMP 36.3–36.9; O2SAT 91–100; BMI 24.1
--- NOTE | 2022-04-18 05:20 | PC.NURSE ---
Pt can only state first name. Pt received bath with total dependence and oral care. Pt has been incontinent of bowel and bladder twice this shift. Pt has removed nasal cannula and telemetry wires throughout the night. Pt has tried to get out of bed several times this shift, bed alarm on for safety and working. O2 sat 91-94% NC 4L. HR 92-115. After 0400 vital check, pt began to sustain a HR of 120-150, wagon winder notified, new orders received and carried out. Lung sounds are diminished bilaterally.
[2022-04-18 06:52] LABS: Basophils % 0.1 % (0.1-2.0); Eosinophils % 0.1 % (0.1-12.0); Hematocrit 37.9 % (42.0-52.0); Lymphocytes # 0.3 K/mm3 (0.7-4.5); Lymphocytes % 4.5 % (10-50); Mean Corpuscular HGB Conc 31.8 g/dL (31.8-35.4); Mean Corpuscular Hemoglobin 33.3 pg (27.0-31.2); Mean Corpuscular Volume 104.8 fl (80-94); Mean Platelet Volume 12.2 fl (7.4-10.4); Monocytes # 0.1 K/mm3 (0.1-1.0); Monocytes % 1.7 % (1.7-9.3); Neutrophils # 5.6 K/mm3 (1.8-7.8); Neutrophils % 93.5 % (37.0-80.0); Red Blood Count 3.61 M/mm3 (4.60-6.20); Red Cell Distribution Width 18.4 % (11.5-17.5)
[2022-04-18 06:55] LABS: MANUAL DIFFERENTIAL MANUAL DIFFERENTIAL (MANUAL DIFF); Platelet Count 57 K/mm3 (142-424)
[2022-04-18 07:03] LABS: Anion Gap 10.5 mEq/L (5-15); Blood Urea Nitrogen 50 mg/dl (9-20); Calcium 8.6 mg/dl (8.4-10.2); Carbon Dioxide 25 mmol/L (22.0-30.0); Chloride 109 mmol/L (98-107); Creatinine Clearance Estimated 53 mL/min (50-200); Estimated Glomerular Filt Rate 64 ml/min (>60); GFR (African American) 78 ML/MIN (>60); Glucose 122 mg/dl (74-100); Potassium 4.5 mmoL/L (3.5-5.1); Sodium 140 mmol/L (136-145)
[2022-04-18 07:16] LABS: Hypochromasia 1+; Lymphocytes % 5 % (10-50); Macrocytosis 1+; Monocytes % 2 % (2-9); Neutrophils % 93 % (42-76); Total Cells Counted 100
[2022-04-18 07:17] LABS: Platelet Estimate Slight Decrease
--- NOTE | 2022-04-18 07:56 | XR_ITS ---
FINAL REPORT CLINICAL HISTORY: f/u pnemonia- covid COMPARISON: 04/15/2022 FINDINGS: SINGLE-VIEW CHEST There is cardiomegaly. The patient is status post median sternotomy. There are worsening bilateral opacities consistent with worsening pneumonia. There is no pneumothorax. IMPRESSION: Worsening pneumonia. Reviewed, Interpreted and Dictated by Merlin Mclaughlin III, MD Transcribed by Marta Beebe Authenticated and [facility]
--- NOTE | 2022-04-18 08:11 | ECG_ITS ---
APPROVED REPORT Exam: Resting ECG HR:131 bpm ECG Measurements Heart Rate 131 AXES QRSd 142 QRS -79 QT 355 T -26 QTc 432 Conclusion ATRIAL FIBRILLATION WITH RAPID VENTRICULAR RESPONSE LEFT AXIS DEVIATION [QRS AXIS < -30] RIGHT BUNDLE BRANCH BLOCK [120+ ms QRS DURATION, UPRIGHT V1, 40+ ms S IN I/aVL/V4/V5/V6] ABNORMAL ECG UNCONFIRMED REPORT Electronically signed by : Samuel Seals MD 04/21/2022 14:10:05
--- NOTE | 2022-04-18 08:47 | HMH.CNCARD ---
History of Present Illness Consult date: 04/18/22 Requesting physician: Lawrence Gambino Consult reason: atrial fibrillation Chief complaint: Rapid Heart rate, Chronic A. fib, COVID Additional Medical History:: 1. CAD A. History of PCI in 2017 2. History of cardiomyopathy with systolic congestive heart failure A. Echo, 04/16/2022, EF 55-60% with mod-severe RV enlargement, reduced RV function and IVS flattening 3. COPD with chronic oxygen therapy 4. Chronic atrial fibrillation on anticoagulation therapy 5. Hypertension 6. History of ulcerative colitis 7. Sleep apnea 8. History of neoplasm of the bladder 9. GERD 10. Recurrent COVID-positive testing over the last 3 months. 11. 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 Suspected bilateral PE in distal vessels, CTA of chest, 04/2022 History of present illness: Pt unable to answer questions at this time due to confusion. Cardiology consulted for A. fib with RVR. Below information from admission H&P from Marta Honeycutt APRN, for Dr. Gambino: *History of present illness: Mr. Lao is an 81-year-old -[place] with a history of coronary artery disease status post PCI in 2017, HFrEF, COPD on continuous oxygen, atrial fibs, hypertension, ulcerative colitis, OPA, sleep apnea, history of malignant neoplasm of the bladder, GERD who recently 2 weeks ago tested positive for COVID. He was removed from isolation protocol but has continued to decline. Nursing staff report that he is not eating and drinking very well and has a congested cough. They also state that he has been confused which is unusual for him. Today with visit by Marta Honeycutt APRN he was found to have a low blood pressure at 79/52 with repeat manually at 88/56. Heart rate was 120-130. He was able to assist with some of his exam but slept whenever left alone. He appeared to be dry. He had no leg edema. Thus he was transferred to [facility] emergency room via EMS for evaluation. His Phuong was notified. In the emergency room he continued to test positive for COVID. He was noted to be afebrile with a heart rate 120 and a blood pressure of 103/71-103/65. O2 sats ranged 91-93 on oxygen. Laboratory data revealed a white blood cell count of 6400 with a hemoglobin of 12.2 and hematocrit of 36.3. BUN was 48 creatinine 1.7. Total bilirubin was again elevated at 2.6 with an AST of 82 and alkaline phosphatase of 170. Albumin was low at 3.2. BNP was 2280. TSH was normal at 1.12. Lactate was 1.7. Troponin I was 0.11x2. Patient received a liter of IV fluids. Chest x-ray was abnormal with worsening bilateral infiltrates. EKG showed atrial fibrillation with rapid ventricular response at 142. To note patient was admitted to [facility] for short-term rehab following extended hospitalization at [facility] for heart failure. He has made progress with physical therapy. Visit has been complicated by ongoing congestive heart failure with leg edema and then faviola COVID. On review of records from [facility], I found notation that he was COVID-positive when he was hospitalized at the [facility] for heart failure February 2022. He was COVID-positive at [facility] 3 weeks ago and positive on this admission. It is not clear if he has had a negative COVID test since February. [facility] History Medical History: Reports:: Asthma, Atrial Fibrillation, BPH, Cancer, Chronic Obstructive Pulmonary Disease (COPD), Coronary Artery Disease, Gastroesophageal Reflux Disease(GERD), Hiatal Hernia, Hyperlipidemia, Hypertension, Lung Disease, Renal Disease (large renal cyst), Renal Insufficiency Denies:: Diabetes Mellitus Type 1, Diabetes Mellitus Type 2, Internal Pacemaker, MRSA, Seizures *Have you ever received a pneumonia vaccine?: Yes *Have you received a flu vaccine this season?: Yes Other Medical History: Reports: Arthritis, Cataracts, Other (Ulcerative colitis) Laterality Cases: Right: Arthroscopy Knee, Arthroscopy Shoulder, Bilateral: Tonsillectomy,
--- NOTE | 2022-04-18 11:04 | HMH.ACPN2 ---
<Bel Stevenson - Last Filed: 04/18/22 11:04> Internal Medicine - PN: Subj *Date: 04/18/22 *Time: 11:04 Interval history: Patient has not been well this morning. He has had more altered mental status and his heart rate increased. His blood pressure began dropping. He is not eating and drinking. Exam Vital signs and Labs for Last 24 Hours: Temp Pulse Resp BP Pulse Ox 97.7 F 140 H 20 99/67 L 95 04/18/22 08:00 04/18/22 09:22 04/18/22 08:00 04/18/22 08:00 04/18/22 09:40 Laboratory Results - last 24 hr 04/18/22 06:00: WBC 6.0, RBC 3.61 L, Hgb 12.0 L D, Hct 37.9 L, MCV 104.8 H, MCH 33.3 H, MCHC 31.8, RDW 18.4 H, Plt Count 57 L, MPV 12.2 H, Neut % (Auto) 93.5 H, Lymph % (Auto) 4.5 L, [place] % (Auto) 1.7, Eos % (Auto) 0.1, Baso % (Auto) 0.1, Neut # (Auto) 5.6, Lymph # (Auto) 0.3 L, [place] # (Auto) 0.1, Eos # (Auto) 0.0, Baso # (Auto) 0.0, Total Counted 100, Neutrophils % (Manual) 93 H, Lymphocytes % (Manual) 5 L, Monocytes % (Manual) 2, Platelet Estimate Slight decrease, RBC Morphology Not Reportable, Hypochromasia 1+, Macrocytosis 1+ 04/18/22 06:00: Sodium 140, Potassium 4.5 D, Chloride 109 H, Carbon Dioxide 25, Anion Gap 10.5, BUN 50 H, Creatinine 1.10, Estimated Creat Clear 53, Estimated GFR 64, Est GFR ( Amer) 78, Glucose 122 H, Calcium 8.6 I & O for Last 24 hours: Intake & Output 04/15/22 04/16/22 04/17/22 04/18/22 11:59 11:59 11:59 11:59 Intake Total 960 / 960 3487 / 3487 900 / 900 Output Total 100 / 100 Balance 860 / 860 3487 / 3487 900 / 900 Weight 145 lb 155 lb 10.342 oz 156 lb 4.924 oz 159 lb 2.78 oz Microbiology Reports for the Last 24 Hours: Microbiology 04/16/22 18:51 Nose - Nasal MRSA Culture - Final Negative 04/15/22 12:05 Blood Blood Culture - Preliminary NO GROWTH AFTER 48 HOURS 04/15/22 12:05 Blood Blood Culture - Preliminary NO GROWTH AFTER 48 HOURS - Constitutional thin, chronically ill appearing - *Routine Respiratory Exam Present: rhonchi, wheezes - *Routine Cardiovascular Exam Present: irregularly irregular - *Routine Abdominal Exam Present: soft, normoactive bowel sounds. Absent: tenderness - *Routine Extremities Exam Absent: cyanosis, clubbing, edema - *Routine Skin Exam Present: warm. Absent: rash - *Routine Neurological Exam Present: altered mental status Assessment and Plan (1) HCAP (healthcare-associated pneumonia) Status: Acute Category: Medical Code(s): J18.9 - Pneumonia, unspecified organism (2) Atrial fibrillation with rapid ventricular response Status: Acute Category: Medical Code(s): I48.91 - Unspecified atrial fibrillation (3) Hypotension Status: Acute Category: Medical Code(s): I95.9 - Hypotension, unspecified (4) Pneumonia due to 2019-nCoV Status: Acute Category: Medical Code(s): U07.1 - COVID-19; J12.82 - Pneumonia due to coronavirus disease 2019 (5) HFrEF (heart failure with reduced ejection fraction) Status: Chronic Category: Medical Code(s): I50.20 - Unspecified systolic (congestive) heart failure (6) COPD, very severe Status: Chronic Category: Medical Code(s): J44.9 - Chronic obstructive pulmonary disease, unspecified (7) Coronary artery disease Status: Chronic Category: Medical Code(s): I25.10 - Atherosclerotic heart disease of [place] coronary artery without angina pectoris (8) GERD (gastroesophageal reflux disease) Status: Acute Category: Medical Code(s): K21.9 - Gastro-esophageal reflux disease without esophagitis (9) Atrial fibrillation Status: Chronic Qualifiers: Atrial fibrillation type: longstanding persistent Qualified Code(s): I48.11 - Longstanding persistent atrial fibrillation Category: Medical Code(s): I48.91 - Unspecified atrial fibrillation (10) Renal insufficiency Status: Chronic Category: Medical Code(s): N28.9 - Disorder of [place]
--- NOTE | 2022-04-18 15:19 | PC.NURSE ---
Patient remains on 4LNC and tolerating well, alert to person only, bed alarm set, appear agitated at times, denies any pain, requires assistance with meals, andrew drip being weaned at this time, blood pressure currently stable, patient incontinent of bowel and bladder, large BM this shift, bed bath and linen change given, call light in reach, bed in lowest position.
--- NOTE | 2022-04-18 18:05 | PC.NURSE ---
AT 0740 THIS AM PT'S HR WAS 130-150 IN UNCONTROLLED AFIB. NOTIFIED (CARDIOLOGY CONSULT ORDERED) JONAS DOWD NOTIFIED. JONAS DOWD AND AT BEDSIDE. EKG ORDERED. PT RECEIVED 0.25 X2 DIGOXIN IV AND MATTHIAS-SYNEPHRINE DRIP WAS STARTED PER CARDIOLOGY. PT'S HR HAS MAINTAINED 90-100. BP STABLE WITH DRIP AT 40 MCG/MIN. REPORT HAND OFF TO DOLLY MARTINEZ RN.
--- NOTE | 2022-04-18 18:20 | PC.NURSE ---
1300- BP 107/78 MAP 88, HR 96, neosynephrine drip titrated down to 20mcg 1400- BP 105/69 MAP 86, HR 105, neosynephrine drip titrated down to 10mcg 1500- BP 113/79 MAP 87, HR 96, neosynephrine drip turned off at this time.
[2022-04-19] VITALS (51 sets, daily range): BP systolic 90–138; BP diastolic 56–96; PULSE 90–146; RESP 15–34; TEMP 36.3–36.6; O2SAT 3–97; BMI 24.2
--- NOTE | 2022-04-19 03:34 | PC.NURSE ---
0330: SPOKE WITH DR. AGUILAR TO INFORM HIM PATIENT'S HEART RHYTHM HAS BEEN IN JUNCTIONAL TACHYCARDIA AND AFIB WITH RVR THROUGHOUT THE NIGHT. INFORMED HIM Jimmie ORTIZ, JANEL SPOKE WITH DR. ILA CURIEL AND RECEIVED ORDERS FOR HR CONTROL BUT PATIENT REMAINS TACHYCARDIC. DR. AGUILAR STATED TO GIVE PATIENT CARDIZEM 10MG IVP BOLUS X1 NOW AND TO START A CARDIZEM INFUSION AT 10ML/HR AND TITRATE TO KEEP HR LESS THAN 100. INFORMED Jimmie ORTIZ RN OF ORDERS. CARDIZEM GTT PREPARED AND VERIFIED PER MYSELF AND Jimmie ORTIZ RN. PATIENT IS RESTING IN BED. PATIENT DENIES ANY DISCOMFORT. CURRENT BP: 100/69.
--- NOTE | 2022-04-19 04:38 | PC.NURSE ---
diltiazem drip titrated to 7mg/hr @ this time
--- NOTE | 2022-04-19 05:31 | PC.NURSE ---
diltiazem drip titrated to 12mg/hr @ this time
--- NOTE | 2022-04-19 10:53 | HMH.ACPN2 ---
Internal Medicine - PN: Subj *Date: 04/19/22 *Time: 10:53 Interval history: He became tachycardic again overnight and was started on Cardizem drip by cardiology. This titrated as his blood pressure will allow. He is still tachycardic in the 120s. Systolic blood pressures ranging in the 90s. He remains confused. Seems to have difficulty swallowing. Exam Vital signs and Labs for Last 24 Hours: Temp Pulse Resp BP Pulse Ox 97.5 F L 107 H 34 H 106/64 L 94 L 04/19/22 07:32 04/19/22 09:44 04/19/22 09:44 04/19/22 09:44 04/19/22 09:44 I & O for Last 24 hours: Intake & Output 04/16/22 04/17/22 04/18/22 04/19/22 11:59 11:59 11:59 11:59 Intake Total 960 / 960 3487 / 3487 900 / 900 1049 / 1049 Output Total 100 / 100 Balance 860 / 860 3487 / 3487 900 / 900 1049 / 1049 Weight 155 lb 10.342 oz 156 lb 4.924 oz 159 lb 2.78 oz 159 lb 13.362 oz Narrative: He is awake and alert but does not answer questions. Chest with bilateral coarse rhonchi. Breath sounds diminished in bases. Heart is irregularly irregular and tachycardic. Abdomen is soft and nondistended with no apparent tenderness. Extremities no edema. Assessment and Plan (1) HCAP (healthcare-associated pneumonia) Status: Acute Category: Medical Code(s): J18.9 - Pneumonia, unspecified organism (2) Atrial fibrillation with rapid ventricular response Status: Acute Category: Medical Code(s): I48.91 - Unspecified atrial fibrillation (3) Hypotension Status: Acute Category: Medical Code(s): I95.9 - Hypotension, unspecified (4) Pneumonia due to 2019-nCoV Status: Acute Category: Medical Code(s): U07.1 - COVID-19; J12.82 - Pneumonia due to coronavirus disease 2019 (5) HFrEF (heart failure with reduced ejection fraction) Status: Chronic Category: Medical Code(s): I50.20 - Unspecified systolic (congestive) heart failure (6) COPD, very severe Status: Chronic Category: Medical Code(s): J44.9 - Chronic obstructive pulmonary disease, unspecified (7) Coronary artery disease Status: Chronic Category: Medical Code(s): I25.10 - Atherosclerotic heart disease of [place] coronary artery without angina pectoris (8) GERD (gastroesophageal reflux disease) Status: Acute Category: Medical Code(s): K21.9 - Gastro-esophageal reflux disease without esophagitis (9) Atrial fibrillation Status: Chronic Qualifiers: Atrial fibrillation type: longstanding persistent Qualified Code(s): I48.11 - Longstanding persistent atrial fibrillation Category: Medical Code(s): I48.91 - Unspecified atrial fibrillation (10) Renal insufficiency Status: Chronic Category: Medical Code(s): N28.9 - Disorder of kidney and ureter, unspecified (11) Ulcerative colitis Status: Acute Category: Medical Code(s): K51.90 - Ulcerative colitis, unspecified, without complications (12) Protein calorie malnutrition Status: Acute Category: Medical Code(s): E46 - Unspecified protein-calorie malnutrition - Assessment and plan all Dx Assessment and Plan for all problems:: Chest x-ray yesterday showed worsening pneumonia. Morning labs are still pending. Continue Cardizem drip under cardiology direction. I have asked that family be allowed to visit with patient despite his COVID-positive status. He has been COVID-positive for the past 2 months.
--- NOTE | 2022-04-19 12:34 | P.PN_ITS ---
Internal Medicine - PN: Subj *Date: 04/19/22 *Time: 12:34 Exam Vital signs and Labs for Last 24 Hours: Temp Pulse Resp BP Pulse Ox 97.5 F L 110 H 16 97/66 L 97 04/19/22 12:00 04/19/22 12:00 04/19/22 12:00 04/19/22 12:00 04/19/22 12:00 I & O for Last 24 hours: Intake & Output 04/16/22 04/17/22 04/18/22 04/19/22 23:59 23:59 23:59 23:59 Intake Total 1811 2595 / 2595 1269 / 1269 0 / 0 Balance 1811 2595 / 2595 1269 / 1269 0 / 0 Weight 70.6 kg 70.9 kg 72.2 kg 72.5 kg Assessment and Plan (1) HCAP (healthcare-associated pneumonia) Status: Acute Category: Medical Code(s): J18.9 - Pneumonia, unspecified organism (2) Atrial fibrillation with rapid ventricular response Status: Acute Category: Medical Code(s): I48.91 - Unspecified atrial fibrillation (3) Hypotension Status: Acute Category: Medical Code(s): I95.9 - Hypotension, unspecified (4) Pneumonia due to 2019-nCoV Status: Acute Category: Medical Code(s): U07.1 - COVID-19; J12.82 - Pneumonia due to coronavirus disease 2019 (5) HFrEF (heart failure with reduced ejection fraction) Status: Chronic Category: Medical Code(s): I50.20 - Unspecified systolic (congestive) heart failure (6) COPD, very severe Status: Chronic Category: Medical Code(s): J44.9 - Chronic obstructive pulmonary disease, unspecified (7) Coronary artery disease Status: Chronic Category: Medical Code(s): I25.10 - Atherosclerotic heart disease of [place] coronary artery without angina pectoris (8) GERD (gastroesophageal reflux disease) Status: Acute Category: Medical Code(s): K21.9 - Gastro-esophageal reflux disease without esophagitis (9) Atrial fibrillation Status: Chronic Qualifiers: Atrial fibrillation type: longstanding persistent Qualified Code(s): I48.11 - Longstanding persistent atrial fibrillation Category: Medical Code(s): I48.91 - Unspecified atrial fibrillation (10) Renal insufficiency Status: Chronic Category: Medical Code(s): N28.9 - Disorder of kidney and ureter, unspecified (11) Ulcerative colitis Status: Acute Category: Medical Code(s): K51.90 - Ulcerative colitis, unspecified, without complications (12) Protein calorie malnutrition Status: Acute Category: Medical Code(s): E46 - Unspecified protein-calorie malnutrition The patient's infection will respond to the chosen ABx?: Yes (SPUTUM CULTURES UNOBTAINABLE, EMPIRIC THERAPY) Is the patient receiving the right drug, dose, and route?: Yes Could a more targeted ABx be ordered?: No
--- NOTE | 2022-04-19 13:37 | PC.NURSE ---
Dr. Ramon paged to obtain order for iv metoprolol as patient will not follow commands to swallow pills. Dr. Ramon ordered to start esmolol drip with pharmacy to dose to equal metoprolol order. Pharmacy notified and told to start drip at 50mcg/kg/min which is 21.7 ml/hr. VS stable on both drips and heart rate 100-115.
[2022-04-19 18:31] LABS: Basophils % 0.1 % (0.1-2.0); Eosinophils % 0.9 % (0.1-12.0); Hematocrit 34.9 % (42.0-52.0); Hemoglobin 11.1 g/dL (14.1-18.0); Lymphocytes # 0.1 K/mm3 (0.7-4.5); Lymphocytes % 4.3 % (10-50); Mean Corpuscular HGB Conc 31.9 g/dL (31.8-35.4); Mean Corpuscular Hemoglobin 33.2 pg (27.0-31.2); Mean Corpuscular Volume 104.2 fl (80-94); Mean Platelet Volume 11.6 fl (7.4-10.4); Monocytes # 0.1 K/mm3 (0.1-1.0); Monocytes % 1.7 % (1.7-9.3); Platelet Count 57 K/mm3 (142-424); Red Blood Count 3.35 M/mm3 (4.60-6.20); Red Cell Distribution Width 18.7 % (11.5-17.5); White Blood Count 3.3 K/mm3 (4.8-10.8)
[2022-04-19 18:36] LABS: Chloride 115 mmol/L (98-107); Potassium 3.8 mmoL/L (3.5-5.1); Sodium 144 mmol/L (136-145)
[2022-04-19 18:37] LABS: MANUAL DIFFERENTIAL MANUAL DIFFERENTIAL (MANUAL DIFF)
[2022-04-19 18:39] LABS: Alanine Aminotransferase 87 U/L (12-78); Albumin Level 2.6 g/dl (3.5-5.0); Albumin/Globulin Ratio 0.8 (1.1-1.8); Alkaline Phosphatase 140 U/L (38-126); Anion Gap 5.8 mEq/L (5-15); Aspartate Amino Transferase 190 U/L (17-59); Bilirubin,Total 2.3 mg/dl (0.2-1.3); Blood Urea Nitrogen 35 mg/dl (9-20); Carbon Dioxide 27 mmol/L (22.0-30.0); Creatinine Clearance Estimated 58 mL/min (50-200); Estimated Glomerular Filt Rate 81 ml/min (>60); GFR (African American) 98 ML/MIN (>60); Globulin 3.2 g/dL (1.3-3.2); Total Protein,Serum 5.8 g/dl (6.3-8.2)
[2022-04-19 18:40] LABS: Glucose 135 mg/dl (74-100)
--- NOTE | 2022-04-19 18:44 | PC.NURSE ---
VS stable, patient weaned to 2LNC. Cardizem drip at 5ml/hr and esmolol at 21.7 ml/hr. Patient remains confused and non-verbal.
[2022-04-19 21:53] LABS: Anisocytosis 2+; Hypochromasia 1+; Lymphocytes % 8 % (10-50); Macrocytosis 2+; Neutrophils % 84 % (42-76); Platelet Estimate Moderate Decrease; Rouleaux 1+; Total Cells Counted 100; Toxic Granulation 1+
[2022-04-20] VITALS (29 sets, daily range): BP systolic 86–106; BP diastolic 53–74; PULSE 100–125; RESP 19–24; TEMP 36.1–36.6; O2SAT 90–96; BMI 24.5
--- NOTE | 2022-04-20 04:31 | PC.NURSE ---
pt has been restless, resistive to care and remains confused this shift, diltiazem and esmolol gtt still infusing, diltiazem at 15, esmolol at 43.5 mL/hr, HR this shift has been 108-112, SBP 90-107, has remained on 2L NC with O2 sats 91-95%, lung sounds diminished t/o
--- NOTE | 2022-04-20 09:39 | HMH.ACPN2 ---
Internal Medicine - PN: Subj *Date: 04/20/22 *Time: 09:39 Interval history: He remains confused and fidgety. Heart rate has improved with the addition of esmolol. He can continue Cardizem drip. Blood pressure has been stable between 90 and 110 systolic. Exam Vital signs and Labs for Last 24 Hours: Temp Pulse Resp BP Pulse Ox 97.7 F 107 H 20 99/68 L 96 04/20/22 04:00 04/20/22 06:00 04/20/22 06:00 04/20/22 06:00 04/20/22 06:36 Laboratory Results - last 24 hr 04/19/22 18:20: WBC 3.3 L D, RBC 3.35 L, Hgb 11.1 L, Hct 34.9 L, MCV 104.2 H, MCH 33.2 H, MCHC 31.9, RDW 18.7 H, Plt Count 57 L, MPV 11.6 H, Neut % (Auto) 93.0 H, Lymph % (Auto) 4.3 L, [place] % (Auto) 1.7, Eos % (Auto) 0.9, Baso % (Auto) 0.1, Neut # (Auto) 3.0, Lymph # (Auto) 0.1 L, [place] # (Auto) 0.1, Eos # (Auto) 0.0, Baso # (Auto) 0.0, Total Counted 100, Neutrophils % (Manual) 84 H, Band Neutrophils % 8.0, Lymphocytes % (Manual) 8 L, Toxic Granulation 1+, Platelet Estimate Moderate decrease, Hypochromasia 1+, Anisocytosis 2+, Macrocytosis 2+, Rouleaux 1+ 04/19/22 18:20: Sodium 144, Potassium 3.8, Chloride 115 H, Carbon Dioxide 27, Anion Gap 5.8, BUN 35 H D, Creatinine 0.90, Estimated Creat Clear 58, Estimated GFR 81, Est GFR ( Amer) 98 D, Glucose 135 H, Calcium 9.0, Total Bilirubin 2.3 H, AST 190 H D, ALT 87 H D, Alkaline Phosphatase 140 H, Total Protein 5.8 L, Albumin 2.6 L, Globulin 3.2, Albumin/Globulin Ratio 0.8 L I & O for Last 24 hours: Intake & Output 04/17/22 04/18/22 04/19/2210/22 11:59 11:59 11:59 11:59 Intake Total 3487 / 3487 900 / 900 1049 / 1049 1620.875 / 1620.875 Balance 3487 / 3487 900 / 900 1049 / 1049 1620.875 / 1620.875 Weight 156 lb 4.924 oz 159 lb 2.78 oz 159 lb 13.362 oz 162 lb 0.636 oz Narrative: He is awake but nonconversant. He is picking at the bed clothing. Chest with bilateral coarse rhonchi throughout both lung segura and diminished breath sounds in the bases. No wheezes. Heart is irregularly irregular. Abdomen is soft and nondistended with no apparent tenderness. Noted with swelling of his left hand. No redness or warmth. Assessment and Plan (1) HCAP (healthcare-associated pneumonia) Status: Acute Category: Medical Code(s): J18.9 - Pneumonia, unspecified organism (2) Atrial fibrillation with rapid ventricular response Status: Acute Category: Medical Code(s): I48.91 - Unspecified atrial fibrillation (3) Hypotension Status: Acute Category: Medical Code(s): I95.9 - Hypotension, unspecified (4) Pneumonia due to 2019-nCoV Status: Acute Category: Medical Code(s): U07.1 - COVID-19; J12.82 - Pneumonia due to coronavirus disease 2019 (5) HFrEF (heart failure with reduced ejection fraction) Status: Chronic Category: Medical Code(s): I50.20 - Unspecified systolic (congestive) heart failure (6) COPD, very severe Status: Chronic Category: Medical Code(s): J44.9 - Chronic obstructive pulmonary disease, unspecified (7) Coronary artery disease Status: Chronic Category: Medical Code(s): I25.10 - Atherosclerotic heart disease of [place] coronary artery without angina pectoris (8) GERD (gastroesophageal reflux disease) Status: Acute Category: Medical Code(s): K21.9 - Gastro-esophageal reflux disease without esophagitis (9) Atrial fibrillation Status: Chronic Qualifiers: Atrial fibrillation type: longstanding persistent Qualified Code(s): I48.11 - Longstanding persistent atrial fibrillation Category: Medical Code(s): I48.91 - Unspecified atrial fibrillation (10) Renal insufficiency Status: Chronic Category: Medical Code(s): N28.9 - Disorder of kidney and ureter, unspecified (11) Ulcerative colitis Status: Acute Category: Medical Code(s): K51.90 - Ulcerative colitis, unspecified, without complications (12) Protein calorie malnutrition Status: Acute Category: Medical Code(s): E46 - Unspecified protein-calorie malnutrition
--- NOTE | 2022-04-20 17:19 | PC.NURSE ---
Addendum entered by Monique Machado RN 04/20/22 17:20: Patient still confused and non-verbal. PO meds held due to patient not being able to follow commands to swallow. Oral care performed throughout shift. Original Note: Esmolol drip still at 21.7 ml/hr and cardizem drip at 15 ml/hr. VS stable and patient remains on 2LNC. Heart rhythm Sinus tach with inverted t- wave on monitor and HR staying between 100-109. Morphine given for pain as patient began to grimace as if in pain. Patient incontinent and brief changed twice.
--- NOTE | 2022-04-20 23:43 | PC.NURSE ---
[address] Ramon about increasing HR and dropping BP, gave orders to start phenylephrine that was on hold, and to titrate esmolol up to 200 mcg/kg/min as needed for HR control
[2022-04-21] VITALS (21 sets, daily range): BP systolic 92–122; BP diastolic 54–76; PULSE 65–122; RESP 16–24; TEMP 36–36.5; O2SAT 90–99; BMI 24.3
--- NOTE | 2022-04-21 05:26 | PC.NURSE ---
Addendum entered by Elvia Mendoza RN 04/21/22 05:48: pt did have a small bowel movement this shift Original Note: pt has remained restless t/o most of shift, unable to answer any questions, HR increasaed to 125-130 and sustained, SBP dropped to 80's, Dr. Ramon notified and orders to restart phenylephrine given and to increase esmolol to achieve goal HR, currently HR is 116-119, SBP has remained above 90 since starting phenylephrine, Phenylephrine currently at 40, cardizem at 15, and esmolol at 200, telemetry has continued to show a fib and BBB, remains on 2L NC with O2 sats 90-95, inspiratory and expiratory rhonchi heard bilaterally t/o, pt has had several wet briefs, PO meds have been held due to patient's inability to follow commands
--- NOTE | 2022-04-21 06:44 | PC.NURSE ---
Pt unable to follow commands. DPI inhaler requires taking a deep breath on command. RN states all PO meds to be held.
--- NOTE | 2022-04-21 07:49 | HMH.ACPN2 ---
<Marta Honeycutt - Last Filed: 04/21/22 07:49> Internal Medicine - PN: Subj *Date: 04/21/22 *Time: 07:49 Interval history: Patient is nonverbal. Nursing notes that he is very restless with strong jerking movements. They feel the morphine has helped. He remains on esmolol, Phenylephrine cardithem drips. Oxygen has been increased to 4 L due to decrease in O2 sats. Exam Vital signs and Labs for Last 24 Hours: Temp Pulse Resp BP Pulse Ox 97.7 F 115 H 20 96/68 L 92 L 04/21/22 04:00 04/21/22 07:00 04/21/22 07:00 04/21/22 07:00 04/21/22 07:00 I & O for Last 24 hours: Intake & Output 04/18/22 04/19/22 04/20/22 04/21/22 11:59 11:59 11:59 11:59 Intake Total 900 / 900 1049 / 1049 1620.875 / 8134.736 4190.151 / 2442.151 Balance 900 / 900 1049 / 1049 1620.875 / 3427.996 6769.151 / 2442.151 Weight 159 lb 2.78 oz 159 lb 13.362 oz 162 lb 0.636 oz 160 lb 4.417 oz Microbiology Reports for the Last 24 Hours: Microbiology 04/15/22 12:05 Blood Blood Culture - Final NO GROWTH AFTER 5 DAYS 04/15/22 12:05 Blood Blood Culture - Final NO GROWTH AFTER 5 DAYS - Constitutional mild distress Comments: Restless. Frequent strong jerking movements. - *Routine Respiratory Exam Present: rhonchi (Coarse bilateral breath sounds) - *Routine Cardiovascular Exam Present: irregularly irregular (Noted 115 to 120/min) - *Routine Abdominal Exam Present: soft, normoactive bowel sounds. Absent: tenderness, distended - *Routine Extremities Exam Present: SAMMY stockings. Absent: edema - *Routine Neurological Exam Absent: alert Nonverbal. Is unable to follow commands. Assessment and Plan (1) HCAP (healthcare-associated pneumonia) Status: Acute Category: Medical Code(s): J18.9 - Pneumonia, unspecified organism (2) Atrial fibrillation with rapid ventricular response Status: Acute Category: Medical Code(s): I48.91 - Unspecified atrial fibrillation (3) Hypotension Status: Acute Category: Medical Code(s): I95.9 - Hypotension, unspecified (4) Pneumonia due to 2019-nCoV Status: Acute Category: Medical Code(s): U07.1 - COVID-19; J12.82 - Pneumonia due to coronavirus disease 2019 (5) HFrEF (heart failure with reduced ejection fraction) Status: Chronic Category: Medical Code(s): I50.20 - Unspecified systolic (congestive) heart failure (6) COPD, very severe Status: Chronic Category: Medical Code(s): J44.9 - Chronic obstructive pulmonary disease, unspecified (7) Coronary artery disease Status: Chronic Category: Medical Code(s): I25.10 - Atherosclerotic heart disease of [place] coronary artery without angina pectoris (8) GERD (gastroesophageal reflux disease) Status: Acute Category: Medical Code(s): K21.9 - Gastro-esophageal reflux disease without esophagitis (9) Atrial fibrillation Status: Chronic Qualifiers: Atrial fibrillation type: longstanding persistent Qualified Code(s): I48.11 - Longstanding persistent atrial fibrillation Category: Medical Code(s): I48.91 - Unspecified atrial fibrillation (10) Renal insufficiency Status: Chronic Category: Medical Code(s): N28.9 - Disorder of kidney and ureter, unspecified (11) Ulcerative colitis Status: Acute Category: Medical Code(s): K51.90 - Ulcerative colitis, unspecified, without complications (12) Protein calorie malnutrition Status: Acute Category: Medical Code(s): E46 - Unspecified protein-calorie malnutrition - Assessment and plan all Dx Assessment and Plan for all problems:: Pulmonary and cardiology will follow. Continue drips to control rate and blood pressure. Continue with comfort measures. <Lawrence Gambino - Last Filed: 04/21/22 18:50> Internal Medicine - PN: Subj *Date: 04/21/22 *Time: 18:49 Exam Vital signs and Labs for Last 24 Hours: Temp Pulse Resp BP Pulse Ox 97.4 F L 112
[2022-04-21 07:51] LABS: Basophils % 0.9 % (0.1-2.0); Eosinophils % 0.3 % (0.1-12.0); Hematocrit 37.3 % (42.0-52.0); Hemoglobin 11.9 g/dL (14.1-18.0); Lymphocytes # 0.3 K/mm3 (0.7-4.5); Lymphocytes % 8.9 % (10-50); Mean Corpuscular HGB Conc 31.9 g/dL (31.8-35.4); Mean Corpuscular Hemoglobin 33.8 pg (27.0-31.2); Mean Corpuscular Volume 105.9 fl (80-94); Mean Platelet Volume 12.2 fl (7.4-10.4); Monocytes # 0.1 K/mm3 (0.1-1.0); Monocytes % 3.2 % (1.7-9.3); Neutrophils # 3.1 K/mm3 (1.8-7.8); Neutrophils % 86.7 % (37.0-80.0); Platelet Count 57 K/mm3 (142-424); Red Blood Count 3.52 M/mm3 (4.60-6.20); Red Cell Distribution Width 18.7 % (11.5-17.5); White Blood Count 3.6 K/mm3 (4.8-10.8)
[2022-04-21 07:55] LABS: MANUAL DIFFERENTIAL MANUAL DIFFERENTIAL (MANUAL DIFF)
[2022-04-21 08:04] LABS: Alanine Aminotransferase 69 U/L (12-78); Albumin Level 2.6 g/dl (3.5-5.0); Albumin/Globulin Ratio 0.8 (1.1-1.8); Alkaline Phosphatase 118 U/L (38-126); Anion Gap 10.7 mEq/L (5-15); Aspartate Amino Transferase 107 U/L (17-59); Bilirubin,Total 2.6 mg/dl (0.2-1.3); Blood Urea Nitrogen 36 mg/dl (9-20); Calcium 9.3 mg/dl (8.4-10.2); Carbon Dioxide 19 mmol/L (22.0-30.0); Chloride 121 mmol/L (98-107); Creatinine Clearance Estimated 59 mL/min (50-200); Estimated Glomerular Filt Rate 72 ml/min (>60); GFR (African American) 87 ML/MIN (>60); Globulin 3.4 g/dL (1.3-3.2); Glucose 123 mg/dl (74-100); Potassium 4.7 mmoL/L (3.5-5.1); Sodium 146 mmol/L (136-145)
[2022-04-21 08:31] LABS: Lymphocytes % 12 % (10-50); Neutrophils % 88 % (42-76); Nucleated Red Blood Cells 1; Ovalocytes 3+; Total Cells Counted 100
[2022-04-21 08:32] LABS: Platelet Estimate Moderate Decrease
--- NOTE | 2022-04-21 09:18 | PC.NURSE ---
PT IS POSITIONED SUPINE IN BED. UNABLE TO RESPOND OR FOLLOW BASIC COMMANDS. PT HAS BEEN EXTREMELY RESTLESS THIS AM. FREQUENT JERKING. MEDICATED PER MAR WITH MORPHINE. ESMOLOL DRIP MAX. AT 200 MCG/MIN. CARDIZEM AT 15 MG/HR. PT'S HR 118. PHENYLEHRINE DRIP AT 40 MCG/MIN. PT'S BP 95/65 . OXYGEN INCREASED TO 4 L NC DUE TO DESATTING IN THE MID 80'S. ATTENDS HAVE BEEN CHANGED THIS MORNING. PT HAS BEEN REPOSITIONED. ORAL CARE PROVIDED. PT WOULD NOT DRINK ENSURE OR WATER THIS MORNING. WILL CONTINUE TO MONITOR.
--- NOTE | 2022-04-21 10:44 | HMH.PULMPN ---
Internal Medicine - PN: Subj *Date: 04/21/22 *Time: 10:44 Interval history: No acute respiratory vents over the weekend. No significant improvement. Exam - Constitutional Constitutional:: Absent: no acute distress, comfortable - HENMT Exam HENMT: Present: normocephalic - Eye Exam Eyes:: Present: normal appearance both eyes and related structures - Neck Exam Neck:: Absent: normal visual inspection - Respiratory Exam Respiratory:: Present: respiratory distress, crackles. Absent: able to speak in complete sentences - Cardiovascular Exam Cardiac:: Present: S1, S2. Absent: regular rhythm - GI Exam GI:: Present: soft - Skin Exam Skin: Present: warm - Neurological Exam Neurological: Absent: alert, awake, normal cognition - Extremities Exam Extremities: Present: no cyanosis, no clubbing Assessment and Plan (1) HCAP (healthcare-associated pneumonia) Status: Acute Category: Medical Code(s): J18.9 - Pneumonia, unspecified organism (2) Atrial fibrillation with rapid ventricular response Status: Acute Category: Medical Code(s): I48.91 - Unspecified atrial fibrillation (3) Hypotension Status: Acute Category: Medical Code(s): I95.9 - Hypotension, unspecified (4) Pneumonia due to 2019-nCoV Status: Acute Category: Medical Code(s): U07.1 - COVID-19; J12.82 - Pneumonia due to coronavirus disease 2019 (5) HFrEF (heart failure with reduced ejection fraction) Status: Chronic Category: Medical Code(s): I50.20 - Unspecified systolic (congestive) heart failure (6) COPD, very severe Status: Chronic Category: Medical Code(s): J44.9 - Chronic obstructive pulmonary disease, unspecified (7) Coronary artery disease Status: Chronic Category: Medical Code(s): I25.10 - Atherosclerotic heart disease of [place] coronary artery without angina pectoris (8) GERD (gastroesophageal reflux disease) Status: Acute Category: Medical Code(s): K21.9 - Gastro-esophageal reflux disease without esophagitis (9) Atrial fibrillation Status: Chronic Qualifiers: Atrial fibrillation type: longstanding persistent Qualified Code(s): I48.11 - Longstanding persistent atrial fibrillation Category: Medical Code(s): I48.91 - Unspecified atrial fibrillation (10) Renal insufficiency Status: Chronic Category: Medical Code(s): N28.9 - Disorder of kidney and ureter, unspecified (11) Ulcerative colitis Status: Acute Category: Medical Code(s): K51.90 - Ulcerative colitis, unspecified, without complications (12) Protein calorie malnutrition Status: Acute Category: Medical Code(s): E46 - Unspecified protein-calorie malnutrition - Assessment and plan all Dx Assessment and Plan for all problems:: #Acute hypoxic respiratory failure: #Hospital-acquired pneumonia: 81-year-old male prior smoker greater than [id number] smoking history carries a diagnosis COPD. As per chart review patient does have a history of COVID-19 pneumonia in February 2022 and also had a positive test twice including this hospital admission. On Admission - Afebrile. No evidence of leukocytosis. Chest x-ray on admission showed bilateral lower lobe predominant patchy airspace disease. Chest x-ray appears improved from his most recent chest x-ray from February 2022 with similar distribution of airspace disease. Patient also has been on methotrexate, unclear at this point of time. CTA no obvious evidence of segmental pulmonary embolism. Significant motion artifact. Bilateral upper lobe predominant emphysematous changes and lower lobe predominant groundglass opacities. bi-ventricular enlargement noted concerning for congestive heart failure along with pulmonary hypertension. Echocardiogram normal EF. RV dilation with RVSP at 35-40. RV strain noted. Patient also having A. fib RVR currently on Cardizem and esmolol drip. Maps greater than 65. Interval update: Worsening mentation. No acute change in his respiratory st
--- NOTE | 2022-04-21 10:51 | XR_ITS ---
FINAL REPORT CLINICAL HISTORY: Hypoxia COMPARISON: April 18, 2022 FINDINGS: Moderate cardiomegaly is noted. There has been prior median sternotomy. There are patchy bibasilar airspace infiltrates, right greater than left, that are more evident than on the prior exam. There is no pleural effusion. There is no pneumothorax. The bony thorax is intact. IMPRESSION: Worsening bilateral pneumonia. Reviewed, Interpreted and Dictated by Aaron Hummel MD Transcribed by Hemal Majano Authenticated and [facility]
--- NOTE | 2022-04-21 12:17 | INFXCTL.NOTE ---
Spoke with Bonnie at [place] regarding patients first positive Covid test. Patient tested positive on 04/01/22, which would make today (04/21/22) his day, and the patient can be removed from precautions, will transfer out of the covid unit and onto med/surg when a bed is available.
[2022-04-21 14:40] LABS: Amylase 80 U/L (30-110); Lipase 74 U/L (23-300)
--- NOTE | 2022-04-21 15:57 | HMH.PNCARD ---
Subjective Date: 04/21/22 Time: 15:57 Principal diagnosis: A. fib with RVR, Pneumonia Interval history: 81-year-old white male continues to be minimally responsive. Nursing relates significant agitation during the day which has improved with anxiolytic IV. Telemetry shows heart rate about 111 bpm on maximum dose diltiazem, esmolol and IV digoxin. Blood pressure around 100 mmHg systolic. Patient's and brother in the room who noted that patient's PCP (Dr. Mukherjee) had been working the patient up for abnormality of his liver; unclear if this was worked up at the [facility] also. Most recent CT scan shows evidence of cirrhosis and ascites. Exam Vital signs and Labs for Last 24 Hours: Temp Pulse Resp BP Pulse Ox 97.2 F L 110 H 24 92/54 L 91 L 04/21/22 12:00 04/21/22 14:00 04/21/22 14:00 04/21/22 14:00 04/21/22 14:00 Laboratory Results - last 24 hr 04/21/22 07:40: WBC 3.6 L, RBC 3.52 L, Hgb 11.9 L, Hct 37.3 L, MCV 105.9 H, MCH 33.8 H, MCHC 31.9, RDW 18.7 H, Plt Count 57 L, MPV 12.2 H, Neut % (Auto) 86.7 H, Lymph % (Auto) 8.9 L, [place] % (Auto) 3.2, Eos % (Auto) 0.3, Baso % (Auto) 0.9, Neut # (Auto) 3.1, Lymph # (Auto) 0.3 L, [place] # (Auto) 0.1, Eos # (Auto) 0.0, Baso # (Auto) 0.0, Total Counted 100, Neutrophils % (Manual) 88 H, Lymphocytes % (Manual) 12, Nucleated RBCs 1, Platelet Estimate Moderate decrease, Ovalocytes 3+ 04/21/22 07:40: Sodium 146 H, Potassium 4.7 D, Chloride 121 H, Carbon Dioxide 19 L, Anion Gap 10.7, BUN 36 H, Creatinine 1.00, Estimated Creat Clear 59, Estimated GFR 72, Est GFR ( Amer) 87, Glucose 123 H, Calcium 9.3, Total Bilirubin 2.6 H, AST 107 H D, ALT 69, Alkaline Phosphatase 118, Total Protein 6.0 L, Albumin 2.6 L, Globulin 3.4 H, Albumin/Globulin Ratio 0.8 L 04/21/22 07:40: Amylase 80 04/21/22 07:40: Lipase 74 I & O for Last 24 hours: Intake & Output 04/19/22 04/20/22 04/21/22 04/22/22 11:59 11:59 11:59 11:59 Intake Total 1049 / 1049 1620.875 / 7708.064 1169.576 / 2990.576 250 / 250 Balance 1049 / 1049 1620.875 / 6442.327 4379.576 / 2990.576 250 / 250 Weight 159 lb 13.362 oz 162 lb 0.636 oz 160 lb 4.417 oz Microbiology Reports for the Last 24 Hours: Microbiology 04/15/22 12:05 Blood Blood Culture - Final NO GROWTH AFTER 5 DAYS 04/15/22 12:05 Blood Blood Culture - Final NO GROWTH AFTER 5 DAYS - *Routine Respiratory Exam Present: rhonchi - *Routine Cardiovascular Exam Present: RRR, tachycardia Progress Note: A&P (1) HCAP (healthcare-associated pneumonia) Status: Acute (2) Atrial fibrillation with rapid ventricular response Status: Acute (3) Hypotension Status: Acute (4) Pneumonia due to 2019-nCoV Status: Acute (5) COPD, very severe Status: Chronic (6) Coronary artery disease Status: Chronic (7) GERD (gastroesophageal reflux disease) Status: Acute (8) Renal insufficiency Status: Chronic (9) Ulcerative colitis Status: Acute (10) Protein calorie malnutrition Status: Acute (11) Cirrhosis of liver Status: Acute Assessment and Plan for All Diagnoses:: 1. Pneumonia with COVID. Possibly some right heart failure as well but inadequate I & O's to accurately assess. 2. A. fib with RVR, on IV digoxin, esmolol and diltiazem. We will switch IV diltiazem to IV verapamil for better rate control. Echo shows EF 55-60%. Patient unable to take oral medications therefore Xarelto has not been given in 3 days. Will start Lovenox 1 mg/kg subcutaneously twice daily for thromboembolic prophylaxis. 3. Suspected distal pulmonary emboli with moderate-severe RV enlargement/moderate reduced function despite eliquis therapy. RVSP on echo estimated at 35-50 mm Hg. 4. Hypotension, controlled on low-dose IV andrew-synephrine 5. Confusion 6. Dilated RV with possible right heart failure. We will give a dose of IV Lasix and assess response. Poor prognosis reiterates the patient d
--- NOTE | 2022-04-21 16:39 | PC.NURSE ---
PT IS RESTING IN BED WITH FAMILY AT BEDSIDE. PT HAS BEEN RESTLESS T/O THE SHIFT UNTIL AT 1500 HE WAS MEDICATED WITH ATIVAN 0.5 MG IV ONE TIME. PT IS NOW RELAXED. JONAS DOWD TALKED WITH FAMILY AT BEDSIDE AND STATED CLEARLY THAT PT DID NOT WANT TO BE INTUBATED. PT IS NOW A DNI. CARDIZEM DRIP HAS BEEN DC'D PER CARDIOLOGY. VERAPAMIL ORDERED. ESMOLOL DRIP CONTINUES AT 200. HR 108-112 PHENYLEPHRINE TITRATED TO 50 MCG/MIN TO MAINTAIN BP. PT HAD A ONE TIME DOSE OF IV LASIX 40 MG. LUNG SOUNDS HAVE SCATTERED RHONCHI. ABDOMEN SOFT/NON TENDER. PT HAS HAD 3 WET ATTENDS THIS SHIFT. WILL CONTINUE TO MONITOR.
--- NOTE | 2022-04-21 20:41 | ECG_ITS ---
APPROVED REPORT Exam: Resting ECG HR:56 bpm ECG Measurements Heart Rate 56 AXES QRSd 153 QRS -86 QT 428 T -86 QTc 420 Conclusion ATRIAL FIBRILLATION WITH SLOW VENTRICULAR RESPONSE LEFT AXIS DEVIATION [QRS AXIS < -30] RIGHT BUNDLE BRANCH BLOCK [120+ ms QRS DURATION, UPRIGHT V1, 40+ ms S IN I/aVL/V4/V5/V6] MODERATE T-WAVE ABNORMALITY, CONSIDER LATERAL ISCHEMIA [-0.1+ mV T-WAVE IN I/aVL/V5/V6] MODERATE T-WAVE ABNORMALITY, CONSIDER INFERIOR ISCHEMIA [-0.1+ mV T-WAVE IN II/aVF] ABNORMAL ECG INTERPRETATION BASED ON A DEFAULT AGE OF 40 YEARS UNCONFIRMED REPORT Electronically signed by : Samuel Seals MD 04/23/2022 17:59:13
[2022-04-21 20:55] LABS: ABG Base Excess -4.3 mmol/L (-2.4-2.3); ABG HCO3 20.1 mmhg (22.0-26.0); ABG Oxygen Saturation 73 % (90-100); ABG PCO2 31.5 mmhg (35.0-45.0); ABG PH 7.42 mmol/L (7.35-7.45); ABG TCO2 21.1 mmhg (23-27)
[2022-04-21 20:56] LABS: Allen's Test Patient Unable; Oxygen 4LPM %; Source Left Radial
[2022-04-21 20:58] LABS: ABG PO2 42.2 mmhg (80-100)
[2022-04-22] VITALS (23 sets, daily range): BP systolic 92–128; BP diastolic 39–79; PULSE 55–130; RESP 15–22; TEMP 35.8–36.7; O2SAT 92–99; BMI 26.2
--- NOTE | 2022-04-22 04:03 | PC.NURSE ---
At 2034, pt HR declined as low as 30s, O2 sat 82%. Esmolol gtt @ 200 mcg/kg/min was stopped immediately. Sherman gtt remained infusing @ 40 mcg/min. BP was 106/60. NRB placed on pt. Lungs noted to have wheezing and rhonchi to bilateral upper lobes. MD Ramon and Stefan paged. New orders received from Yenny to stop esmolol gtt, Lasix 40 mg IV x1, duoneb, 1 amp atropine. Orders carried out. Family notified of change in pt condition. Family remained at bedside until 299. Pt is currently resting at this time. He is sinus rhythm to afib with frequent PVCs on telemetry. VS are currently stable at this time. HR 50-70s at this time. Sherman is currently infusing @ 40 mcg/min. O2 sat 96%% on 100% NRB. Pt has had good urine output. Voids via incontinent brief. No BM. Has been turned/repositioned. Safety measures in place.
--- NOTE | 2022-04-22 09:52 | HMH.PNCARD ---
Subjective Date: 04/22/22 Time: 09:52 Principal diagnosis: A. fib with RVR, Pneumonia Interval history: 81 yo BM in bed and restless. Nurse relates giving IV verapamil recently for HR of 160 bpm with current rate 110-130 bpm. Esmolol gtt discontinued overnight due to bradycardia. He continues on Andrew gtt for BP support. Telemetry shows A. fib with RVR. Discussed with Dr. Castillo and will continue IV lasix for Right heart failure. Discussed with Dr. Ramon and will start amiodarone IV for rate control and to help with diuresis. Exam Vital signs and Labs for Last 24 Hours: Temp Pulse Resp BP Pulse Ox 96.9 F L 81 22 108/78 L 92 L 04/22/22 08:00 04/22/22 06:20 04/22/22 06:00 04/22/22 06:00 04/22/22 06:20 Laboratory Results - last 24 hr 04/21/22 07:40: Amylase 80 04/21/22 07:40: Lipase 74 04/21/22 20:52: Specimen Source Left radial, O2 % 4lpm, ABG pH 7.42, ABG pCO2 31.5 L, ABG pO2 42.2 L, ABG HCO3 20.1 L, ABG Total CO2 21.1 L, ABG O2 Saturation 73 L*, ABG Base Excess -4.3 L, Arik Test Patient unable I & O for Last 24 hours: Intake & Output 04/19/22 04/20/22 04/21/22 04/22/22 11:59 11:59 11:59 11:59 Intake Total 1049 / 1049 1620.875 / 8554.057 9900.576 / 2990.576 2714 / 2714 Balance 1049 / 1049 1620.875 / 2443.473 3962.576 / 2990.576 2714 / 2714 Weight 159 lb 13.362 oz 162 lb 0.636 oz 160 lb 4.417 oz 173 lb 1.006 oz - *Routine Respiratory Exam Present: rhonchi, diminished air movement - *Routine Cardiovascular Exam Present: tachycardia, irregularly irregular Progress Note: A&P (1) HCAP (healthcare-associated pneumonia) Status: Acute (2) Atrial fibrillation with rapid ventricular response Status: Acute (3) Hypotension Status: Acute (4) Pneumonia due to 2019-nCoV Status: Acute (5) COPD, very severe Status: Chronic (6) Coronary artery disease Status: Chronic (7) GERD (gastroesophageal reflux disease) Status: Acute (8) Renal insufficiency Status: Chronic (9) Ulcerative colitis Status: Acute (10) Protein calorie malnutrition Status: Acute (11) Cirrhosis of liver Status: Acute (12) Right heart enlargement Status: Acute (13) Right heart failure with reduced right ventricular function Status: Acute Assessment and Plan for All Diagnoses:: 1. Right heart enlargement (multifactorial) with Right heart failure. Continue IV lasix. 2. A. fib with RVR, esmolol stopped. Continue IV verapamil and will start amiodarone to see if rate control and/or rhythm control can be obtained. Continue anticoagulation. 3. Recent COVID infection but CXR picture does not support pneumonia per Pulmonary. 4. Hypotension, on IV andrew-synephrine. 5. Suspected distal pulmonary emboli with moderate-severe RV enlargement/moderate reduced function despite eliquis therapy. Unable to take oral meds. Platelets low so will hold on lovenox. RVSP on echo estimated at 35-50 mm Hg. 6. DNI 7. Pancytopenia with plt 57K Poor prognosis
[2022-04-22 10:36] LABS: Microscopic, Urine URINE MICROSCOPIC (MICROSCOPIC)
[2022-04-22 10:39] LABS: Appearance,Urine CLEAR (Clear); Bilirubin,Urine Negative (Negative); Blood, Urine 2+ (Negative); Color,Urine YELLOW (Yellow); Glucose,Urine (UA) Negative (Negative); Ketones,Urine Negative (Negative); Leukocyte Esterase,Urine Negative (Negative); Nitrate,Urine Negative (Negative); PH,Urine 5.5 (5.0-8.5); Protein,Urine TRACE (Negative); Urobilinogen,Urine 0.2 EU/dl (0.2)
[2022-04-22 10:51] LABS: Bacteria,Urine Trace /lpf; Hyaline Casts,Urine Occasional #/lpf (0); Squamous Epithelial Cell,Urine Occasional #/hpf (0-5)
--- NOTE | 2022-04-22 10:53 | DIET.NUTRFU ---
Patient continues to have poor po intake, refusing all meals yesterday along with ensure. he is now DNR, comfort measures in place, family at bedside. Patient has gained wt with edema noted and IV lasix provided. Will continue to monitor and provide nutritional support as needed.
--- NOTE | 2022-04-22 11:52 | HMH.PULMPN ---
Internal Medicine - PN: Subj *Date: 04/22/22 *Time: 11:56 Interval history: No acute respiratory vents overnight. Patient did not show any improvement. Assessment and Plan (1) HCAP (healthcare-associated pneumonia) Status: Acute Category: Medical Code(s): J18.9 - Pneumonia, unspecified organism (2) Atrial fibrillation with rapid ventricular response Status: Acute Category: Medical Code(s): I48.91 - Unspecified atrial fibrillation (3) Hypotension Status: Acute Category: Medical Code(s): I95.9 - Hypotension, unspecified (4) Pneumonia due to 2019-nCoV Status: Acute Category: Medical Code(s): U07.1 - COVID-19; J12.82 - Pneumonia due to coronavirus disease 2018 (5) COPD, very severe Status: Chronic Category: Medical Code(s): J44.9 - Chronic obstructive pulmonary disease, unspecified (6) Coronary artery disease Status: Chronic Category: Medical Code(s): I25.10 - Atherosclerotic heart disease of [place] coronary artery without angina pectoris (7) GERD (gastroesophageal reflux disease) Status: Acute Category: Medical Code(s): K21.9 - Gastro-esophageal reflux disease without esophagitis (8) Renal insufficiency Status: Chronic Category: Medical Code(s): N28.9 - Disorder of kidney and ureter, unspecified (9) Ulcerative colitis Status: Acute Category: Medical Code(s): K51.90 - Ulcerative colitis, unspecified, without complications (10) Protein calorie malnutrition Status: Acute Category: Medical Code(s): E46 - Unspecified protein-calorie malnutrition (11) Cirrhosis of liver Status: Acute Category: Medical Code(s): K74.60 - Unspecified cirrhosis of liver (12) Right heart enlargement Status: Acute Category: Medical Code(s): I51.7 - Cardiomegaly (13) Right heart failure with reduced right ventricular function Status: Acute Category: Medical Code(s): I50.810 - Right heart failure, unspecified - Assessment and plan all Dx Assessment and Plan for all problems:: #Acute hypoxic respiratory failure: #Hospital-acquired pneumonia: 81-year-old male prior smoker greater than 58-[id number] smoking history carries a diagnosis COPD. As per chart review patient does have a history of COVID-19 pneumonia in February 2022 and also had a positive test twice including this hospital admission. On Admission - Afebrile. No evidence of leukocytosis. Chest x-ray on admission showed bilateral lower lobe predominant patchy airspace disease. Chest x-ray appears improved from his most recent chest x-ray from February 2022 with similar distribution of airspace disease. Patient also has been on methotrexate, unclear at this point of time. CTA no obvious evidence of segmental pulmonary embolism. Significant motion artifact. Bilateral upper lobe predominant emphysematous changes and lower lobe predominant groundglass opacities. bi-ventricular enlargement noted concerning for congestive heart failure along with pulmonary hypertension. Echocardiogram normal EF. RV dilation with RVSP at 35-40. RV strain noted. Patient also having A. fib RVR currently on Cardizem and esmolol drip. Maps greater than 65. Interval update: Worsening mentation. Increasing oxygen requirements. Chest ray continue to show worsening volume status. Afebrile. Leukopenia. He continued to receive cefepime at this point. A. fib RVR not controlled. Discussed with cardiology the plan was made to admit amiodarone and aggressively diurese the patient for his RV failure and shock from volume overload along with Pneumonia-Hypoxia and possible PE's. Continue to receive cefepime. Nasal MRSA PCR negative. Blood cultures no growth 5 days. Patient appears to be in Plan: -Recommend N.p.o. with strict aspiration precautions -Strict I's and O's, with net negative volume status. -Lasix 40 IV BIDx2 doses -Continue oxygen supplementation to maintain O2 saturation goal of 90% and above, -DuoNebs every 6 hours along with budesonide rebecca
--- NOTE | 2022-04-22 18:00 | HMH.ACPN2 ---
Internal Medicine - PN: Subj *Date: 04/22/22 *Time: 08:32 Interval history: He had a aron course overnight with an episode of acute bradycardia down to the 30s requiring atropine. The esmolol drip has been discontinued. He remains on the Sherman-Synephrine drip with stable blood pressure. He remains confused, nonverbal, and very agitated. Exam Vital signs and Labs for Last 24 Hours: Temp Pulse Resp BP Pulse Ox 96.9 F L 88 16 100/70 L 96 04/22/22 08:00 04/22/22 17:36 04/22/22 17:00 04/22/22 17:00 04/22/22 17:36 Laboratory Results - last 24 hr 04/21/22 20:52: Specimen Source Left radial, O2 % 4lpm, ABG pH 7.42, ABG pCO2 31.5 L, ABG pO2 42.2 L, ABG HCO3 20.1 L, ABG Total CO2 21.1 L, ABG O2 Saturation 73 L*, ABG Base Excess -4.3 L, Arik Test Patient unable 04/22/22 10:35: Urine Color Yellow, Urine Appearance Clear, Urine pH 5.5, Ur Specific [place] 1.020, Urine Protein Trace, Urine Glucose (UA) Negative, Urine Ketones Negative, Urine Blood 2+, Urine Nitrate Negative, Urine Bilirubin Negative, Urine Urobilinogen 0.2, Ur Leukocyte Esterase Negative, Urine RBC None, Urine WBC None, Ur Squamous Epith Cells Occasional, Urine Bacteria Trace, Hyaline Casts Occasional I & O for Last 24 hours: Intake & Output 04/20/22 04/21/22 04/22/22 04/23/22 11:59 11:59 11:59 11:59 Intake Total 1620.875 / 4264.268 1243.576 / 2990.576 2714 / 2714 1130 / 1130 Output Total 3700 / 3700 Balance 1620.875 / 8359.562 0481.576 / 2990.576 2714 / 2714 -2570 / -2570 Weight 162 lb 0.636 oz 160 lb 4.417 oz 173 lb 1.006 oz Microbiology Reports for the Last 24 Hours: Microbiology 04/22/22 12:45 Sputum - Expectorated Sputum Gram Stain - Final Narrative: Very agitated and restless. No purposeful movement. Chest with scattered rhonchi. No wheezes. Heart is irregularly irregular. Extremities no edema Assessment and Plan (1) HCAP (healthcare-associated pneumonia) Status: Acute Category: Medical Code(s): J18.9 - Pneumonia, unspecified organism (2) Atrial fibrillation with rapid ventricular response Status: Acute Category: Medical Code(s): I48.91 - Unspecified atrial fibrillation (3) Hypotension Status: Acute Category: Medical Code(s): I95.9 - Hypotension, unspecified (4) Pneumonia due to 2019-nCoV Status: Acute Category: Medical Code(s): U07.1 - COVID-19; J12.82 - Pneumonia due to coronavirus disease 2019 (5) COPD, very severe Status: Chronic Category: Medical Code(s): J44.9 - Chronic obstructive pulmonary disease, unspecified (6) Coronary artery disease Status: Chronic Category: Medical Code(s): I25.10 - Atherosclerotic heart disease of [place] coronary artery without angina pectoris (7) GERD (gastroesophageal reflux disease) Status: Acute Category: Medical Code(s): K21.9 - Gastro-esophageal reflux disease without esophagitis (8) Renal insufficiency Status: Chronic Category: Medical Code(s): N28.9 - Disorder of kidney and ureter, unspecified (9) Ulcerative colitis Status: Acute Category: Medical Code(s): K51.90 - Ulcerative colitis, unspecified, without complications (10) Protein calorie malnutrition Status: Acute Category: Medical Code(s): E46 - Unspecified protein-calorie malnutrition (11) Cirrhosis of liver Status: Acute Category: Medical Code(s): K74.60 - Unspecified cirrhosis of liver (12) Right heart enlargement Status: Acute Category: Medical Code(s): I51.7 - Cardiomegaly (13) Right heart failure with reduced right ventricular function Status: Acute Category: Medical Code(s): I50.810 - Right heart failure, unspecified - Assessment and plan all Dx Assessment and Plan for all problems:: Will continue to follow with cardiology and pulmonology. He seemed to respond to Ativan yesterday and this will be continued as needed for his agitation.
--- NOTE | 2022-04-22 18:07 | PC.NURSE ---
Patient resting in bed with eyes closed, has been restless and combative at times this shift, treated with lorazepam with good response, amiodarone drip initiated this am, remains in afib per telemetry, continues on phenylephrine drip at 40mcg/minute, conte catheter placed this shift for accurate IandO, given lasix IV with good diuresis, patient has been turned q2h, remains on 100% NRB, call light in reach with bed in lowest position, family members at bedside.
--- NOTE | 2022-04-22 18:38 | PC.NURSE ---
1003- amiodarone bolus given at this time 1015- amiodarone drip started at this time at 1mg/min 1615- amiodarone drip decreased to 0.5mg/min
--- NOTE | 2022-04-22 21:06 | PC.NURSE ---
pt unable to cough, pt has audible gurgle in throat and encouraged pt to cough or clear throat but pt unable to at this time; pt does follow commands, asked pt to wiggle toes and pt did, but unable to use incentive spirometer or even cough at this time; if worsens, will ask RT to NT suction pt; pt's lung sounds are coarse/rhonchi throughout, turned pt with SRNA and sat pt up at 40 degrees to help with respiratory function; will continue to try and encourage pt to cough throughout shift
[2022-04-23] VITALS (33 sets, daily range): BP systolic 85–142; BP diastolic 49–92; PULSE 61–165; RESP 13–24; TEMP 36.7–36.9; O2SAT 88–99; BMI 26.0
--- NOTE | 2022-04-23 | PC.NURSE ---
bp 134/60 (71), decreased pt's andrew drip to 30mcg/min
--- NOTE | 2022-04-23 00:05 | PC.NURSE ---
Marsha CHACON asked if could do pt's breathing treatment, pt did receive treatment due to extreme need, pt's HR maintained 90-110 during treatment, just after treatment HR did increased into 130's once but very shortlived and back down into 90's a few minutes later
--- NOTE | 2022-04-23 06:47 | PC.NURSE ---
pt restless, pt got mitten off a few times this shift, pt's HR increased into 120's after NT suction by Razia CHACON and labs drawn, amio drip still going at 16.7mL/hr, pt's bp stable [0630-128/74 (81)] so placed andrew drip on stand by at this time, no fevers, pt on 100% non-rebreather throughout shift with oxygen saturation in 90's
[2022-04-23 07:04] LABS: Basophils % 1.8 % (0.1-2.0); Eosinophils % 0.6 % (0.1-12.0); Hematocrit 34.4 % (42.0-52.0); Hemoglobin 10.5 g/dL (14.1-18.0); Lymphocytes # 0.3 K/mm3 (0.7-4.5); Lymphocytes % 26.7 % (10-50); Mean Corpuscular HGB Conc 30.5 g/dL (31.8-35.4); Mean Corpuscular Hemoglobin 33.3 pg (27.0-31.2); Mean Corpuscular Volume 109.2 fl (80-94); Mean Platelet Volume 8.9 fl (7.4-10.4); Monocytes # 0.1 K/mm3 (0.1-1.0); Monocytes % 3.9 % (1.7-9.3); Neutrophils # 0.8 K/mm3 (1.8-7.8); Red Blood Count 3.16 M/mm3 (4.60-6.20); Red Cell Distribution Width 18.5 % (11.5-17.5); White Blood Count 1.2 K/mm3 (4.8-10.8)
[2022-04-23 07:10] LABS: Chloride 122 mmol/L (98-107); Potassium 3.1 mmoL/L (3.5-5.1)
[2022-04-23 07:12] LABS: Blood Urea Nitrogen 26 mg/dl (9-20); Creatinine Clearance Estimated 63 mL/min (50-200); Estimated Glomerular Filt Rate 81 ml/min (>60); GFR (African American) 98 ML/MIN (>60)
[2022-04-23 07:13] LABS: Alanine Aminotransferase 52 U/L (12-78); Albumin Level 2.8 g/dl (3.5-5.0); Albumin/Globulin Ratio 0.9 (1.1-1.8); Alkaline Phosphatase 137 U/L (38-126); Anion Gap 6.1 mEq/L (5-15); Aspartate Amino Transferase 57 U/L (17-59); Bilirubin,Total 3.2 mg/dl (0.2-1.3); Calcium 9.6 mg/dl (8.4-10.2); Carbon Dioxide 26 mmol/L (22.0-30.0); Globulin 3.1 g/dL (1.3-3.2); Glucose 127 mg/dl (74-100); Total Protein,Serum 5.9 g/dl (6.3-8.2)
[2022-04-23 07:15] LABS: Sodium 151 mmol/L (136-145)
[2022-04-23 07:23] LABS: Platelet Count 24 K/mm3 (142-424)
--- NOTE | 2022-04-23 08:33 | HMH.ACPN2 ---
<Marta Honeycutt - Last Filed: 04/23/22 08:33> Internal Medicine - PN: Subj *Date: 04/23/22 *Time: 08:33 Interval history: Patient has had an unstable night. Heart rate has varied anywhere from 100s to 160. He remains in atrial fib. Respiratory status with nonrebreather with satisfactory O2 sats. He has been NT suction x1. To note he remains a DNI. He is currently only on an amiodarone drip. He did diurese well after Lasix yesterday. Data this a.m. White blood cell count is 1200 with a hemoglobin of 10.5 hematocrit of 34.4. Platelet count has decreased further to 24,000. Blood chemistry shows sodium of 151 and potassium of 3.1. BUN is 26 and creatinine is 0.9. Exam Vital signs and Labs for Last 24 Hours: Temp Pulse Resp BP Pulse Ox 98.0 F 116 H 18 119/74 94 L 04/23/22 04:00 04/23/22 06:17 04/23/22 06:00 04/23/22 06:00 04/23/22 06:17 Laboratory Results - last 24 hr 04/22/22 10:35: Urine Color Yellow, Urine Appearance Clear, Urine pH 5.5, Ur Specific [place] 1.020, Urine Protein Trace, Urine Glucose (UA) Negative, Urine Ketones Negative, Urine Blood 2+, Urine Nitrate Negative, Urine Bilirubin Negative, Urine Urobilinogen 0.2, Ur Leukocyte Esterase Negative, Urine RBC None, Urine WBC None, Ur Squamous Epith Cells Occasional, Urine Bacteria Trace, Hyaline Casts Occasional 04/23/22 06:47: WBC 1.2 L* D, RBC 3.16 L, Hgb 10.5 L, Hct 34.4 L, MCV 109.2 H, MCH 33.3 H, MCHC 30.5 L, RDW 18.5 H, Plt Count 24 L* D, MPV 8.9, Neut % (Auto) 67.0, Lymph % (Auto) 26.7, [place] % (Auto) 3.9, Eos % (Auto) 0.6, Baso % (Auto) 1.8, Neut # (Auto) 0.8 L*, Lymph # (Auto) 0.3 L, [place] # (Auto) 0.1, Eos # (Auto) 0.0, Baso # (Auto) 0.0 04/23/22 06:47: Sodium 151 H*, Potassium 3.1 L D, Chloride 122 H, Carbon Dioxide 26, Anion Gap 6.1, BUN 26 H D, Creatinine 0.90, Estimated Creat Clear 63, Estimated GFR 81, Est GFR ( Amer) 98, Glucose 127 H, Calcium 9.6, Total Bilirubin 3.2 H, AST 57 D, ALT 52, Alkaline Phosphatase 137 H, Total Protein 5.9 L, Albumin 2.8 L, Globulin 3.1, Albumin/Globulin Ratio 0.9 L I & O for Last 24 hours: Intake & Output 04/20/22 04/21/22 04/22/22 04/23/22 11:59 11:59 11:59 11:59 Intake Total 1620.875 / 9636.822 3169.576 / 2990.576 2714 / 2714 2141 / 2141 Output Total 5100 / 5100 Balance 1620.875 / 6335.398 6582.576 / 2990.576 2714 / 2714 -2959 / -2959 Weight 162 lb 0.636 oz 160 lb 4.417 oz 173 lb 1.006 oz 171 lb 11.841 oz Microbiology Reports for the Last 24 Hours: Microbiology 04/22/22 12:45 Sputum - Expectorated Sputum Gram Stain - Final - Constitutional moderate distress Comments: No purposeful response - *Routine Respiratory Exam Present: rhonchi (Coarse rhonchi bilaterally upper respiratory) - *Routine Cardiovascular Exam Present: irregularly irregular (Ventricular rate varies from anywhere 105 up to 160+) - *Routine Extremities Exam Present: edema, SAMMY stockings - *Routine Neurological Exam Absent: alert, oriented X3 Nonverbal. Frequent movement of the head and some of the arms. Assessment and Plan (1) HCAP (healthcare-associated pneumonia) Status: Acute Category: Medical Code(s): J18.9 - Pneumonia, unspecified organism (2) Atrial fibrillation with rapid ventricular response Status: Acute Category: Medical Code(s): I48.91 - Unspecified atrial fibrillation (3) Hypotension Status: Acute Category: Medical Code(s): I95.9 - Hypotension, unspecified (4) Pneumonia due to 2019-nCoV Status: Acute Category: Medical Code(s): U07.1 - COVID-19; J12.82 - Pneumonia due to coronavirus disease 2019 (5) COPD, very severe Status: Chronic Category: Medical Code(s): J44.9 - Chronic obstructive pulmonary disease, unspecified (6) Coronary artery disease Status: Chronic Category: Medical Code(s): I25.10 - Atherosclerotic heart disease of [place] coronary artery without angina pectoris (7) GERD (gastroesophageal reflux disease) Status: Acute Cat
--- NOTE | 2022-04-23 09:19 | HMH.PNCARD ---
Subjective Date: 04/23/22 Time: 09:19 Principal diagnosis: A. fib with RVR, Pneumonia Interval history: 81-year-old black male in bed. Still noncommunicative. He has been receiving Ativan routinely due to agitation. Ruiz catheter placed yesterday with greater than 4 L of urine output since IV Lasix given yesterday. Telemetry continues to show atrial fibrillation with variable rate between 100-160 bpm despite institution of amiodarone therapy. He is no longer on Sherman-Synephrine with blood pressure around 120 mmHg systolic. Further decline in white count down to around 1000, platelets down to 24,000 and increase in sodium to 151. Potassium replacement ordered due to potassium of 3.1. Exam Vital signs and Labs for Last 24 Hours: Temp Pulse Resp BP Pulse Ox 98.0 F 122 H 18 119/74 94 L 04/23/22 04:00 04/23/22 08:34 04/23/22 06:00 04/23/22 06:00 04/23/22 06:17 Laboratory Results - last 24 hr 04/22/22 10:35: Urine Color Yellow, Urine Appearance Clear, Urine pH 5.5, Ur Specific [place] 1.020, Urine Protein Trace, Urine Glucose (UA) Negative, Urine Ketones Negative, Urine Blood 2+, Urine Nitrate Negative, Urine Bilirubin Negative, Urine Urobilinogen 0.2, Ur Leukocyte Esterase Negative, Urine RBC None, Urine WBC None, Ur Squamous Epith Cells Occasional, Urine Bacteria Trace, Hyaline Casts Occasional 04/23/22 06:47: WBC 1.2 L* D, RBC 3.16 L, Hgb 10.5 L, Hct 34.4 L, MCV 109.2 H, MCH 33.3 H, MCHC 30.5 L, RDW 18.5 H, Plt Count 24 L* D, MPV 8.9, Neut % (Auto) 67.0, Lymph % (Auto) 26.7, [place] % (Auto) 3.9, Eos % (Auto) 0.6, Baso % (Auto) 1.8, Neut # (Auto) 0.8 L*, Lymph # (Auto) 0.3 L, [place] # (Auto) 0.1, Eos # (Auto) 0.0, Baso # (Auto) 0.0 04/23/22 06:47: Sodium 151 H*, Potassium 3.1 L D, Chloride 122 H, Carbon Dioxide 26, Anion Gap 6.1, BUN 26 H D, Creatinine 0.90, Estimated Creat Clear 63, Estimated GFR 81, Est GFR ( Amer) 98, Glucose 127 H, Calcium 9.6, Total Bilirubin 3.2 H, AST 57 D, ALT 52, Alkaline Phosphatase 137 H, Total Protein 5.9 L, Albumin 2.8 L, Globulin 3.1, Albumin/Globulin Ratio 0.9 L I & O for Last 24 hours: Intake & Output 04/20/22 04/21/22 04/22/22 04/23/22 11:59 11:59 11:59 11:59 Intake Total 1620.875 / 9914.905 7958.576 / 2990.576 2714 / 2714 2141 / 2141 Output Total 5100 / 5100 Balance 1620.875 / 2980.410 8029.576 / 2990.576 2714 / 2714 -2959 / -2959 Weight 162 lb 0.636 oz 160 lb 4.417 oz 173 lb 1.006 oz 171 lb 11.841 oz Microbiology Reports for the Last 24 Hours: Microbiology 04/22/22 12:45 Sputum - Expectorated Sputum Gram Stain - Final - Constitutional mild distress, agitated - *Routine Respiratory Exam Present: rales, diminished air movement - *Routine Cardiovascular Exam Present: tachycardia, irregularly irregular - *Routine Neurological Exam Present: alert Progress Note: A&P (1) HCAP (healthcare-associated pneumonia) Status: Acute (2) Atrial fibrillation with rapid ventricular response Status: Acute (3) Hypotension Status: Acute (4) Pneumonia due to 2019-nCoV Status: Acute (5) COPD, very severe Status: Chronic (6) Coronary artery disease Status: Chronic (7) GERD (gastroesophageal reflux disease) Status: Acute (8) Renal insufficiency Status: Chronic (9) Ulcerative colitis Status: Acute (10) Protein calorie malnutrition Status: Acute (11) Cirrhosis of liver Status: Acute (12) Right heart enlargement Status: Acute (13) Right heart failure with reduced right ventricular function Status: Acute Assessment and Plan for All Diagnoses:: 1. Repeat Lasix IV today. 2. Anesthesia was able to provide quick sedation with subsequent cardioversion x2 at 200 J, synchronized, which did result in a lower rate but the patient has remained in atrial fibrillation. EKG shows rate about 84 bpm. 3. Continue amiodarone IV until patient is able to take oral medications. Prognosis remains poor.
--- NOTE | 2022-04-23 09:31 | XR_ITS ---
FINAL REPORT CLINICAL HISTORY: hypoxia COMPARISON: April 21, 2022 FINDINGS: There is [id number] cardiomegaly. There are multiple sternotomy wires. The mediastinum is normal. Patchy basilar infiltrates, right greater than left, are worse as compared to prior. There is a small left pleural effusion.. There is no pneumothorax. There is no osseous abnormality. IMPRESSION: Progressive bilateral pneumonia. Reviewed, Interpreted and Dictated by Aaron Hummel MD Transcribed by Hemal Majano Authenticated and [facility]
--- NOTE | 2022-04-23 09:37 | US_ITS ---
FINAL REPORT CLINICAL HISTORY: Abdominal Pain and Pancytopenia; patient in critical condition, uncooperative, unable to follow instructions FINDINGS: ABDOMINAL ULTRASOUND COMPLETE: TECHNIQUE: Ultrasound images of the abdomen were obtained. FINDINGS: Exam is limited. The liver is unremarkable. There is a minimal amount of perihepatic fluid. The gallbladder is distended and contains multiple gallstones. The common duct measures up to 7 mm. The right kidney measures 9.4 cm in length and is normal in echogenicity without hydronephrosis. The left kidney measures 9.0 cm in length and is normal in echogenicity without hydronephrosis. There are benign-appearing cysts in the right kidney measuring up to 1.3 cm. The spleen is unremarkable. The aorta is normal in caliber. The vena cava is unremarkable. IMPRESSION: Benign-appearing right renal cysts. Multiple gallstones in a distended gallbladder. Minimal perihepatic fluid. Reviewed, Interpreted and Dictated by Aaron Hummel MD Transcribed by Hemal Majano Authenticated and . [facility]
--- NOTE | 2022-04-23 09:58 | ECG_ITS ---
APPROVED REPORT Exam: Resting ECG HR:84 bpm ECG Measurements Heart Rate 84 AXES QRSd 150 QRS -76 QT 382 T -33 QTc 422 Conclusion ATRIAL FIBRILLATION WITH ABERRANT CONDUCTION OR VENTRICULAR PREMATURE COMPLEXES RIGHT BUNDLE BRANCH BLOCK [120+ ms QRS DURATION, UPRIGHT V1, 40+ ms S IN I/aVL/V4/V5/V6] LEFT ANTERIOR FASCICULAR BLOCK [QRS AXIS <= -45, QR IN I, RS IN II] ABNORMAL ECG UNCONFIRMED REPORT Electronically signed by : Samuel Seals MD 04/23/2022 17:57:18
--- NOTE | 2022-04-23 10:11 | HMH.CARDIO ---
[facility] Cardioversion Date: 04/23/22 Provider:: MARC Gerber Procedure Performed:: Synchronized electrical cardioversion Diagnosis:: Atrial fibrillation with a rapid ventricular response Procedure Summary:: Anesthesia provided sedation and patient subsequently underwent synchronized electrical shock at 200 J x 2 without conversion to normal sinus rhythm. Rate did improve from 130 bpm to 80-100 bpm. Complications:: None Conculsion:: Unsuccessful cardioversion of atrial fibrillation.
--- NOTE | 2022-04-23 10:25 | HMH.PULMPN ---
Internal Medicine - PN: Subj *Date: 04/23/22 *Time: 10:25 Interval history: No acute respiratory vents overnight. Responded well to diuresis. No improvement in mentation. Exam - Constitutional Constitutional:: Absent: no acute distress, comfortable - HENMT Exam HENMT: Present: normocephalic - Eye Exam Eyes:: Present: normal appearance both eyes and related structures - Neck Exam Neck:: Present: normal visual inspection - Respiratory Exam Respiratory:: Present: respiratory distress, rhonchi. Absent: able to speak in complete sentences, wheezing - Cardiovascular Exam Cardiac:: Present: S1, S2 - GI Exam GI:: Present: soft - Skin Exam Skin: Present: warm - Neurological Exam Neurological: Absent: alert, awake, normal cognition - Extremities Exam Extremities: Present: no cyanosis, no clubbing Assessment and Plan (1) HCAP (healthcare-associated pneumonia) Status: Acute Category: Medical Code(s): J18.9 - Pneumonia, unspecified organism (2) Atrial fibrillation with rapid ventricular response Status: Acute Category: Medical Code(s): I48.91 - Unspecified atrial fibrillation (3) Hypotension Status: Acute Category: Medical Code(s): I95.9 - Hypotension, unspecified (4) Pneumonia due to 2019-nCoV Status: Acute Category: Medical Code(s): U07.1 - COVID-19; J12.82 - Pneumonia due to coronavirus disease 2019 (5) COPD, very severe Status: Chronic Category: Medical Code(s): J44.9 - Chronic obstructive pulmonary disease, unspecified (6) Coronary artery disease Status: Chronic Category: Medical Code(s): I25.10 - Atherosclerotic heart disease of [place] coronary artery without angina pectoris (7) GERD (gastroesophageal reflux disease) Status: Acute Category: Medical Code(s): K21.9 - Gastro-esophageal reflux disease without esophagitis (8) Renal insufficiency Status: Chronic Category: Medical Code(s): N28.9 - Disorder of kidney and ureter, unspecified (9) Ulcerative colitis Status: Acute Category: Medical Code(s): K51.90 - Ulcerative colitis, unspecified, without complications (10) Protein calorie malnutrition Status: Acute Category: Medical Code(s): E46 - Unspecified protein-calorie malnutrition (11) Cirrhosis of liver Status: Acute Category: Medical Code(s): K74.60 - Unspecified cirrhosis of liver (12) Right heart enlargement Status: Acute Category: Medical Code(s): I51.7 - Cardiomegaly (13) Right heart failure with reduced right ventricular function Status: Acute Category: Medical Code(s): I50.810 - Right heart failure, unspecified - Assessment and plan all Dx Assessment and Plan for all problems:: #Acute hypoxic respiratory failure: #Hospital-acquired pneumonia: 81-year-old male prior smoker greater than 39-hzvf-cvuh smoking history carries a diagnosis COPD. As per chart review patient does have a history of COVID-19 pneumonia in February 2022 and also had a positive test twice including this hospital admission. On Admission - Afebrile. No evidence of leukocytosis. Chest x-ray on admission showed bilateral lower lobe predominant patchy airspace disease. Chest x-ray appears improved from his most recent chest x-ray from February 2022 with similar distribution of airspace disease. Patient also has been on methotrexate, unclear at this point of time. CTA no obvious evidence of segmental pulmonary embolism. Significant motion artifact. Bilateral upper lobe predominant emphysematous changes and lower lobe predominant groundglass opacities. bi-ventricular enlargement noted concerning for congestive heart failure along with pulmonary hypertension. Echocardiogram normal EF. RV dilation with RVSP at 35-40. RV strain noted. Patient also having A. fib RVR s/p cardioversion this morning Plan: -No significant improvement in mentation. -No change in respiratory status. Chest x-ray concerning for worsening pneumonia. Antibiotics changed
[2022-04-23 11:12] LABS: Fibrinogen 212 mg/dL (229.9-363.5)
[2022-04-23 11:17] LABS: D-Dimer 5.19 ug/mL (0.0-0.5)
[2022-04-23 11:26] LABS: Lactate Dehydrogenase 495 U/L (313-618)
--- NOTE | 2022-04-23 14:47 | PC.WOUNDNOTE ---
pt was cardioverted with 2 shocks at approx 1000. at bedside were Margarita Brenner James in anesthesia, Imani Aldrich RN, Carly Herrera RN, Carly Joseph RT, Izzy Gunter RT, Rosio Lira RN, Carly Mcclendon SRNA pt was able to maintain from less than 20 minutes in controlled afib. pt then converted back to uncontrolled afib. Margarita choudhary notified at approx 1020. no new orders, pt was given meds that were not able to be given before cardioversion (digoxin). Margarita Choudhary was notified that pt hr was in the 120-130 at approx 1043. at approx 1415 Pt o2 was switched from 100% NRB to 50% venti. RT at bedside at 1455 to deep suction patient.
--- NOTE | 2022-04-23 14:52 | PC.NURSE ---
rounded on patient. patient isn't able to follow commands or respond back. family members at bedside. they have no concerns or questions at this time. encouraged them to ring out if needed.
--- NOTE | 2022-04-23 15:11 | DIET.NUTRFU ---
Addendum entered by Madisyn Villalobos RD, LD 04/24/22 09:18: Patient is being kept comfortable with pain, but family is not ready for hospice/comfort measures. Spoke to Dr. Gambino this morning and he will review TF/enternal feedings with family to determine next step nutritionally. Based on alertness he may not be able to complete swallow eval. Also reviewed labs Na was 151H with no bolus IV ordered. He is receiving some NaCl and dextrose with IV medications. He just finished diuretic tx, labs were ordered for today to review hydration status. He is DNI not DNR, will continue to follow POC Original Note: Pulmonary recommended strict NPO due to aspiration precautions, patient had had poor po intake with multiple refusals previously. Patient is DNR and comfort measures are in place. No aggressive tx is wanted by family, they have been in house visiting often. Will continue to follow and provide comfort measures.
--- NOTE | 2022-04-23 15:18 | PC.NURSE ---
notified Teodora Honeycutt face to face of pt critical labs at 0800 na 151 plt 24 [address] Castillo regarding if pt needs to be placed in neutropenic precautions. per Dr Castillo at this time pt DOES NOT require iso. 1010
--- NOTE | 2022-04-23 16:04 | PC.NURSE ---
during assessment pt was noted to be minimally responsive. he does move his arms about, but he does not respond verbally or follow commands.
--- NOTE | 2022-04-23 17:02 | PC.NURSE ---
attempted to speak with pt family about severity of pt condition. pt family still adamant about being DNI. pt has audible loose cough but not productive. pt has been deep suctioned once this shift. lungs still have scattered rhonchi.
[2022-04-24] VITALS (24 sets, daily range): BP systolic 91–156; BP diastolic 52–85; PULSE 76–134; RESP 16–28; TEMP 36.7–37.7; O2SAT 87–97; BMI 26.0
--- NOTE | 2022-04-24 05:27 | PC.NURSE ---
Addendum entered by Elvia Vazquez RN 04/24/22 05:46: Heels floated. New Teds applied after bath. Original Note: Pt responds to pain. Thrashes about in bed at times. Has grunted and moaned some. Frequent coughing noted. Rhonchi and wheezing noted to lung segura. Pt remains on 50% venti mask with O2 sats in low 90s. BP has remained stable. Pt remains in afib this shift with brief periods of NSR on telemetry. Amiodarone is infusing @ 16.7 ml/hr. F/C draining to bedside with 750 ml total output. No BM this shift. Pt turned. Bed bath given. Linens changed.Oral care provided.
--- NOTE | 2022-04-24 08:43 | PC.NURSE ---
Addendum entered by Cleo Carter RN 04/24/22 11:07: 20 gauge also in r wrist Original Note: late entry: Patient had a 20 gauge ultrasound iv placed on 04/23 at 1515 per h jamia fay after two attempts made by darshan fay. an iv was also placed last night 04/23 at about 2100 per h.mau fay in the r wrist
--- NOTE | 2022-04-24 09:19 | HMH.ACPN2 ---
<Bel Stevenson - Last Filed: 04/24/22 09:19> Internal Medicine - PN: Subj *Date: 04/24/22 *Time: 09:19 Interval history: Patient had an unsuccessful cardioversion yesterday and remains in A. fib with a rate in the 120s. His respiratory status is not improving. He remains nonresponsive. Exam Vital signs and Labs for Last 24 Hours: Temp Pulse Resp BP Pulse Ox 98.1 F 118 H 24 140/74 92 L 04/24/22 04:00 04/24/22 08:32 04/24/22 06:00 04/24/22 06:00 04/24/22 06:22 Laboratory Results - last 24 hr 04/23/22 10:47: D-Dimer 5.19 H 04/23/22 10:47: Lactate Dehydrogenase 495 04/23/22 10:47: Fibrinogen 212 L I & O for Last 24 hours: Intake & Output 04/21/22 04/22/22 04/23/22 04/24/22 11:59 11:59 11:59 11:59 Intake Total 2990.576 / 2990.576 2714 / 2714 2141 / 2141 952 / 952 Output Total 5100 / 5100 2400 / 2400 Balance 2990.576 / 2990.576 2714 / 2714 -2959 / -2959 -1448 / -1448 Weight 160 lb 4.417 oz 173 lb 1.006 oz 171 lb 11.841 oz 171 lb 11.841 oz Microbiology Reports for the Last 24 Hours: Microbiology 04/22/22 12:45 Sputum - Expectorated Sputum Gram Stain - Final 04/22/22 12:45 Sputum - Expectorated Sputum Sputum Culture - Preliminary Gram Positive Cocci - Constitutional no acute distress - *Routine Respiratory Exam Present: rales, rhonchi, wheezes (On a Ventimask) - *Routine Cardiovascular Exam Present: irregularly irregular (Rate in the 120s) - *Routine Abdominal Exam Present: soft, normoactive bowel sounds. Absent: tenderness - *Routine Extremities Exam Absent: cyanosis, clubbing, edema - *Routine Skin Exam Present: warm. Absent: rash - *Routine Neurological Exam Present: altered mental status Assessment and Plan (1) HCAP (healthcare-associated pneumonia) Status: Acute Category: Medical Code(s): J18.9 - Pneumonia, unspecified organism (2) Atrial fibrillation with rapid ventricular response Status: Acute Category: Medical Code(s): I48.91 - Unspecified atrial fibrillation (3) Hypotension Status: Acute Category: Medical Code(s): I95.9 - Hypotension, unspecified (4) Pneumonia due to 2019-nCoV Status: Acute Category: Medical Code(s): U07.1 - COVID-19; J12.82 - Pneumonia due to coronavirus disease 2019 (5) COPD, very severe Status: Chronic Category: Medical Code(s): J44.9 - Chronic obstructive pulmonary disease, unspecified (6) Coronary artery disease Status: Chronic Category: Medical Code(s): I25.10 - Atherosclerotic heart disease of [place] coronary artery without angina pectoris (7) GERD (gastroesophageal reflux disease) Status: Acute Category: Medical Code(s): K21.9 - Gastro-esophageal reflux disease without esophagitis (8) Renal insufficiency Status: Chronic Category: Medical Code(s): N28.9 - Disorder of kidney and ureter, unspecified (9) Ulcerative colitis Status: Acute Category: Medical Code(s): K51.90 - Ulcerative colitis, unspecified, without complications (10) Protein calorie malnutrition Status: Acute Category: Medical Code(s): E46 - Unspecified protein-calorie malnutrition (11) Cirrhosis of liver Status: Acute Category: Medical Code(s): K74.60 - Unspecified cirrhosis of liver (12) Right heart enlargement Status: Acute Category: Medical Code(s): I51.7 - Cardiomegaly (13) Right heart failure with reduced right ventricular function Status: Acute Category: Medical Code(s): I50.810 - Right heart failure, unspecified (14) Pancytopenia Status: Acute Category: Medical Code(s): D61.818 - Other pancytopenia - Assessment and plan all Dx Assessment and Plan for all problems:: Chest x-ray from yesterday showed progressive bilateral pneumonia . Abdominal ultrasound showed multiple gallstones and a distended gallbladder. The patient's antibiotics were changed to meropenem yesterday by pulmonology due to worsening pneumonia. The p
--- NOTE | 2022-04-24 09:35 | HMH.PULMPN ---
Internal Medicine - PN: Subj *Date: 04/24/22 *Time: 11:29 Interval history: No acute respiratory events overnight. Patient continues to remain stable oxygen requirements. Hemodynamics improved. Exam - Constitutional Constitutional:: Absent: no acute distress, comfortable - HENMT Exam HENMT: Present: normocephalic - Eye Exam Eyes:: Present: normal appearance both eyes and related structures - Neck Exam Neck:: Present: normal visual inspection - Respiratory Exam Respiratory:: Present: respiratory distress, decreased breath sounds, rhonchi. Absent: able to speak in complete sentences, wheezing - Cardiovascular Exam Cardiac:: Present: S1, S2 - GI Exam GI:: Present: soft - Skin Exam Skin: Present: warm - Neurological Exam Neurological: Absent: alert, awake, normal cognition Assessment and Plan (1) HCAP (healthcare-associated pneumonia) Status: Acute Category: Medical Code(s): J18.9 - Pneumonia, unspecified organism (2) Atrial fibrillation with rapid ventricular response Status: Acute Category: Medical Code(s): I48.91 - Unspecified atrial fibrillation (3) Hypotension Status: Acute Category: Medical Code(s): I95.9 - Hypotension, unspecified (4) Pneumonia due to 2019-nCoV Status: Acute Category: Medical Code(s): U07.1 - COVID-19; J12.82 - Pneumonia due to coronavirus disease 2019 (5) COPD, very severe Status: Chronic Category: Medical Code(s): J44.9 - Chronic obstructive pulmonary disease, unspecified (6) Coronary artery disease Status: Chronic Category: Medical Code(s): I25.10 - Atherosclerotic heart disease of [place] coronary artery without angina pectoris (7) GERD (gastroesophageal reflux disease) Status: Acute Category: Medical Code(s): K21.9 - Gastro-esophageal reflux disease without esophagitis (8) Renal insufficiency Status: Chronic Category: Medical Code(s): N28.9 - Disorder of kidney and ureter, unspecified (9) Ulcerative colitis Status: Acute Category: Medical Code(s): K51.90 - Ulcerative colitis, unspecified, without complications (10) Protein calorie malnutrition Status: Acute Category: Medical Code(s): E46 - Unspecified protein-calorie malnutrition (11) Cirrhosis of liver Status: Acute Category: Medical Code(s): K74.60 - Unspecified cirrhosis of liver (12) Right heart enlargement Status: Acute Category: Medical Code(s): I51.7 - Cardiomegaly (13) Right heart failure with reduced right ventricular function Status: Acute Category: Medical Code(s): I50.810 - Right heart failure, unspecified (14) Pancytopenia Status: Acute Category: Medical Code(s): D61.818 - Other pancytopenia - Assessment and plan all Dx Assessment and Plan for all problems:: #Acute hypoxic respiratory failure: #Hospital-acquired pneumonia: 81-year-old male prior smoker greater than 15-hmed-eohc smoking history carries a diagnosis COPD. As per chart review patient does have a history of COVID-19 pneumonia in February 2022 and also had a positive test twice including this hospital admission. On Admission - Afebrile. No evidence of leukocytosis. Chest x-ray on admission showed bilateral lower lobe predominant patchy airspace disease. Chest x-ray appears improved from his most recent chest x-ray from February 2022 with similar distribution of airspace disease. Patient also has been on methotrexate, unclear at this point of time. CTA no obvious evidence of segmental pulmonary embolism. Significant motion artifact. Bilateral upper lobe predominant emphysematous changes and lower lobe predominant groundglass opacities. bi-ventricular enlargement noted concerning for congestive heart failure along with pulmonary hypertension. Echocardiogram normal EF. RV dilation with RVSP at 35-40. RV strain noted. Patient also having A. fib RVR s/p cardioversion this morning Plan: -No significant improvement in mentation. Consider obtaining CT head witho
--- NOTE | 2022-04-24 09:37 | XR_ITS ---
FINAL REPORT CLINICAL HISTORY: Hypoxia, covid COMPARISON: 04/23/2022 FINDINGS: SINGLE VIEW CHEST. There is mild to moderate cardiomegaly. Sternotomy wires are present. The mediastinum is unremarkable. There are patchy basilar airspace infiltrates, right greater than left. This appears more extensive than previous and is consistent with worsening basilar pneumonia. There is no pneumothorax. IMPRESSION: Worsening basilar pneumonia. Reviewed, Interpreted and Dictated by Aaron Hummel MD Transcribed by Whitney Garcia Authenticated and [facility]
--- NOTE | 2022-04-24 10:42 | PC.NURSE ---
RESP CARE NOTE: Pt placed on a partial re-rebreather oxygen mask with 15 lpm flow thru a high flow humidifier, per Dr Castillo order. Pt must have humidity to oxygen device. Will continue to monitor patient.
[2022-04-24 10:45] LABS: Basophils # 0.1 K/mm3 (0-0.2); Basophils % 3.3 % (0.1-2.0); Eosinophils % 0.4 % (0.1-12.0); Hemoglobin 10.5 g/dL (14.1-18.0); Lymphocytes # 0.5 K/mm3 (0.7-4.5); Lymphocytes % 32.7 % (10-50); Mean Corpuscular HGB Conc 31.8 g/dL (31.8-35.4); Mean Corpuscular Hemoglobin 33.5 pg (27.0-31.2); Mean Corpuscular Volume 105.5 fl (80-94); Mean Platelet Volume 8.7 fl (7.4-10.4); Monocytes # 0.1 K/mm3 (0.1-1.0); Monocytes % 6.2 % (1.7-9.3); Neutrophils # 0.9 K/mm3 (1.8-7.8); Neutrophils % 60.7 % (37.0-80.0); Red Blood Count 3.13 M/mm3 (4.60-6.20); Red Cell Distribution Width 19.1 % (11.5-17.5); White Blood Count 1.5 K/mm3 (4.8-10.8)
[2022-04-24 10:51] LABS: Platelet Count 23 K/mm3 (142-424)
[2022-04-24 10:57] LABS: Alanine Aminotransferase 48 U/L (12-78); Albumin Level 2.8 g/dl (3.5-5.0); Albumin/Globulin Ratio 0.8 (1.1-1.8); Alkaline Phosphatase 135 U/L (38-126); Anion Gap 9.3 mEq/L (5-15); Aspartate Amino Transferase 58 U/L (17-59); Bilirubin,Total 4.1 mg/dl (0.2-1.3); Blood Urea Nitrogen 25 mg/dl (9-20); Calcium 10.1 mg/dl (8.4-10.2); Carbon Dioxide 24 mmol/L (22.0-30.0); Creatinine Clearance Estimated 63 mL/min (50-200); Estimated Glomerular Filt Rate 93 ml/min (>60); GFR (African American) 112 ML/MIN (>60); Globulin 3.4 g/dL (1.3-3.2); Glucose 114 mg/dl (74-100); Potassium 4.3 mmoL/L (3.5-5.1); Total Protein,Serum 6.2 g/dl (6.3-8.2)
[2022-04-24 11:03] LABS: Chloride 129 mmol/L (98-107); Sodium 158 mmol/L (136-145)
--- NOTE | 2022-04-24 11:48 | P.PN_ITS ---
Subjective Date: 04/24/22 Time: 11:48 Principal diagnosis: A. fib with RVR, Pneumonia Interval history: 81 yo BM in bed. Unresponsive but fidgeting in bed. Audible congestion. On High flow oxygen. Telemetry shows A. fib with rate around 110 bpm Ruiz catheter with reddish orange urine Exam Vital signs and Labs for Last 24 Hours: Temp Pulse Resp BP Pulse Ox 98.0 F 118 H 24 140/74 87 L 04/24/22 08:00 04/24/22 08:32 04/24/22 06:00 04/24/22 06:00 04/24/22 10:40 Laboratory Results - last 24 hr 04/24/22 10:15: Sodium 158 H*, Potassium 4.3 D, Chloride 129 H, Carbon Dioxide 24, Anion Gap 9.3, BUN 25 H, Creatinine 0.80, Estimated Creat Clear 63, Estimated GFR 93, Est GFR ( Amer) 112, Glucose 114 H, Calcium 10.1, Total Bilirubin 4.1 H, AST 58, ALT 48, Alkaline Phosphatase 135 H, Total Protein 6.2 L , Albumin 2.8 L, Globulin 3.4 H, Albumin/Globulin Ratio 0.8 L 04/24/22 10:30: WBC 1.5 L*, RBC 3.13 L, Hgb 10.5 L, Hct 33.0 L, MCV 105.5 H, MCH 33.5 H, MCHC 31.8, RDW 19.1 H, Plt Count 23 L*, MPV 8.7, Neut % (Auto) 60.7, Lymph % (Auto) 32.7, [place] % (Auto) 6.2, Eos % (Auto) 0.4, Baso % (Auto) 3.3 H, Neut # (Auto) 0.9 L*, Lymph # (Auto) 0.5 L, [place] # (Auto) 0.1, Eos # (Auto) 0.0, Baso # (Auto) 0.1 I & O for Last 24 hours: Intake & Output 04/21/22 04/22/22 04/23/22 04/24/22 11:59 11:59 11:59 11:59 Intake Total 2990.576 / 2990.576 2714 / 2714 2141 / 2141 952 / 952 Output Total 5100 / 5100 2400 / 2400 Balance 2990.576 / 2990.576 2714 / 2714 -2959 / -2959 -1448 / -1448 Weight 160 lb 4.417 oz 173 lb 1.006 oz 171 lb 11.841 oz 171 lb 11.841 oz Microbiology Reports for the Last 24 Hours: Microbiology 04/22/22 12:45 Sputum - Expectorated Sputum Gram Stain - Final 04/22/22 12:45 Sputum - Expectorated Sputum Sputum Culture - Preliminary Gram Positive Cocci - *Routine Respiratory Exam Present: rhonchi - *Routine Cardiovascular Exam Present: RRR, tachycardia, irregularly irregular Progress Note: A&P (1) HCAP (healthcare-associated pneumonia) Status: Acute (2) Atrial fibrillation with rapid ventricular response Status: Acute (3) Hypotension Status: Acute (4) Pneumonia due to 2019-nCoV Status: Acute (5) COPD, very severe Status: Chronic (6) Coronary artery disease Status: Chronic (7) GERD (gastroesophageal reflux disease) Status: Acute (8) Renal insufficiency Status: Chronic (9) Ulcerative colitis Status: Acute (10) Protein calorie malnutrition Status: Acute (11) Cirrhosis of liver Status: Acute (12) Right heart enlargement Status: Acute (13) Right heart failure with reduced right ventricular function Status: Acute (14) Pancytopenia Status: Acute Assessment and Plan for All Diagnoses:: 1. Lasix given this AM as orderd. 2. Continue IV amiodarone and PRN verapamil for rate control. 3. In light of the worsening hypernatremia and hyperchloremia, will hold further diuretic therapy and will give lactated ringers to see if this will help. Discussed with Dr. Ramon and Dr. Castillo. Continues to have poor prognosis.
--- NOTE | 2022-04-24 13:38 | PC.NURSE ---
Rounded on pt, cleaned and straightened room. Visitors in room at this time, no needs voiced.
--- NOTE | 2022-04-24 13:51 | PC.NURSE ---
rounded on patient. no family at bedside at that time. patient not able to respond to questions. on 100% nonrebreather.
--- NOTE | 2022-04-24 20:59 | PC.NURSE ---
VS stable, Heart rate between 98-140's during the day, ativan given to help calm agitated patient. Amio running at 16.7ml/hr today with no plans to change. Medications changed to IV. plans for possible feeding tube tomorrow. Q2 turn, IV antibiotics given.
[2022-04-25] VITALS (25 sets, daily range): BP systolic 72–145; BP diastolic 34–97; PULSE 90–130; RESP 14–24; TEMP 37.2–39; O2SAT 86–98; BMI 22.8
--- NOTE | 2022-04-25 05:05 | PC.NURSE ---
Pt has rested well this shift and has not required prn medication for agitation. his mentation has not improved. he remains unresponsive, withdraws to pain, moves head, hands, and arms, occasionally grunts/moans when being repositioned. PIERRE. a fib on telemetry, rate 102-131. no edema noted. remains on NRB, o2 sats have been 92%-97%. respirations labored, deep, and use of accessory muscles for respirations noted. inspiratory/expiratory rhonchi, and diminished breath sounds auscultated.Amio drip @ 16.7 ml/hr. LR @ 100 ml/hr. conte in place draining clear/olamide urine. urine has strong smell. no skin issues noted. he was bathed this shift, turned every 2 hours, and heels elevated. bed alarm on.
[2022-04-25 06:45] LABS: Basophils # 0.2 K/mm3 (0-0.2); Basophils % 6.9 % (0.1-2.0); Eosinophils % 1.6 % (0.1-12.0); Hematocrit 36.6 % (42.0-52.0); Hemoglobin 11.1 g/dL (14.1-18.0); Lymphocytes # 0.9 K/mm3 (0.7-4.5); Lymphocytes % 39.9 % (10-50); Mean Corpuscular HGB Conc 30.3 g/dL (31.8-35.4); Mean Corpuscular Hemoglobin 32.7 pg (27.0-31.2); Mean Corpuscular Volume 107.9 fl (80-94); Mean Platelet Volume 9.2 fl (7.4-10.4); Monocytes # 0.2 K/mm3 (0.1-1.0); Neutrophils # 1.1 K/mm3 (1.8-7.8); Neutrophils % 49.4 % (37.0-80.0); Red Blood Count 3.39 M/mm3 (4.60-6.20); Red Cell Distribution Width 19.2 % (11.5-17.5); White Blood Count 2.1 K/mm3 (4.8-10.8)
[2022-04-25 07:08] LABS: Chloride 122 mmol/L (98-107); Potassium 3.5 mmoL/L (3.5-5.1)
[2022-04-25 07:10] LABS: Alanine Aminotransferase 41 U/L (12-78); Aspartate Amino Transferase 46 U/L (17-59); Blood Urea Nitrogen 29 mg/dl (9-20); Creatinine Clearance Estimated 55 mL/min (50-200); Estimated Glomerular Filt Rate 72 ml/min (>60); GFR (African American) 87 ML/MIN (>60)
[2022-04-25 07:11] LABS: Albumin Level 2.6 g/dl (3.5-5.0); Albumin/Globulin Ratio 0.8 (1.1-1.8); Alkaline Phosphatase 151 U/L (38-126); Anion Gap 5.5 mEq/L (5-15); Bilirubin,Total 4.6 mg/dl (0.2-1.3); Calcium 10.3 mg/dl (8.4-10.2); Carbon Dioxide 31 mmol/L (22.0-30.0); Globulin 3.1 g/dL (1.3-3.2); Glucose 109 mg/dl (74-100); Total Protein,Serum 5.7 g/dl (6.3-8.2)
[2022-04-25 07:29] LABS: Sodium 155 mmol/L (136-145)
[2022-04-25 07:30] LABS: Platelet Count 21 K/mm3 (142-424)
--- NOTE | 2022-04-25 08:28 | HMH.ACPN2 ---
<Bel Stevenson - Last Filed: 04/25/22 08:28> Internal Medicine - PN: Subj *Date: 04/25/22 *Time: 08:28 Interval history: Patient is still nonresponsive today and remains in A. fib. Exam Vital signs and Labs for Last 24 Hours: Temp Pulse Resp BP Pulse Ox 99.7 F H 103 H 22 113/69 97 04/25/22 04:00 04/25/22 06:15 04/25/22 06:00 04/25/22 06:00 04/25/22 06:15 Laboratory Results - last 24 hr 04/24/22 10:15: Sodium 158 H*, Potassium 4.3 D, Chloride 129 H, Carbon Dioxide 24, Anion Gap 9.3, BUN 25 H, Creatinine 0.80, Estimated Creat Clear 63, Estimated GFR 93, Est GFR ( Amer) 112, Glucose 114 H, Calcium 10.1, Total Bilirubin 4.1 H, AST 58, ALT 48, Alkaline Phosphatase 135 H, Total Protein 6.2 L, Albumin 2.8 L, Globulin 3.4 H, Albumin/Globulin Ratio 0.8 L 04/24/22 10:30: WBC 1.5 L*, RBC 3.13 L, Hgb 10.5 L, Hct 33.0 L, MCV 105.5 H, MCH 33.5 H, MCHC 31.8, RDW 19.1 H, Plt Count 23 L*, MPV 8.7, Neut % (Auto) 60.7, Lymph % (Auto) 32.7, [place] % (Auto) 6.2, Eos % (Auto) 0.4, Baso % (Auto) 3.3 H, Neut # (Auto) 0.9 L*, Lymph # (Auto) 0.5 L, [place] # (Auto) 0.1, Eos # (Auto) 0.0, Baso # (Auto) 0.1 04/25/22 06:20: WBC 2.1 L D, RBC 3.39 L, Hgb 11.1 L, Hct 36.6 L, MCV 107.9 H, MCH 32.7 H, MCHC 30.3 L, RDW 19.2 H, Plt Count 21 L*, MPV 9.2, Neut % (Auto) 49.4, Lymph % (Auto) 39.9, [place] % (Auto) 9.0, Eos % (Auto) 1.6, Baso % (Auto) 6.9 H, Neut # (Auto) 1.1 L, Lymph # (Auto) 0.9, [place] # (Auto) 0.2, Eos # (Auto) 0.0, Baso # (Auto) 0.2 04/25/22 06:20: Sodium 155 H*, Potassium 3.5, Chloride 122 H, Carbon Dioxide 31 H, Anion Gap 5.5, BUN 29 H, Creatinine 1.00 D, Estimated Creat Clear 55, Estimated GFR 72, Est GFR ( Amer) 87 D, Glucose 109 H, Calcium 10.3 H, Total Bilirubin 4.6 H, AST 46, ALT 41, Alkaline Phosphatase 151 H, Total Protein 5.7 L, Albumin 2.6 L, Globulin 3.1, Albumin/Globulin Ratio 0.8 L I & O for Last 24 hours: Intake & Output 04/22/22 04/23/22 04/24/22 04/25/22 11:59 11:59 11:59 11:59 Intake Total 2714 / 2714 2141 / 2141 952 / 952 766 / 766 Output Total 5100 / 5100 2400 / 2400 3800 / 3800 Balance 2714 / 2714 -2959 / -2959 -1448 / -1448 -3034 / -3034 Weight 173 lb 1.006 oz 171 lb 11.841 oz 171 lb 11.841 oz 150 lb 6.4 oz Microbiology Reports for the Last 24 Hours: Microbiology 04/22/22 12:45 Sputum - Expectorated Sputum Gram Stain - Final 04/22/22 12:45 Sputum - Expectorated Sputum Sputum Culture - Final Staphylococcus haemolyticus - Constitutional no acute distress - *Routine Respiratory Exam Present: rales, rhonchi, wheezes - *Routine Cardiovascular Exam Present: irregularly irregular - *Routine Abdominal Exam Present: soft, normoactive bowel sounds. Absent: tenderness - *Routine Extremities Exam Absent: cyanosis, clubbing, edema - *Routine Skin Exam Present: warm. Absent: rash - *Routine Neurological Exam Present: altered mental status Assessment and Plan (1) HCAP (healthcare-associated pneumonia) Status: Acute Category: Medical Code(s): J18.9 - Pneumonia, unspecified organism (2) Atrial fibrillation with rapid ventricular response Status: Acute Category: Medical Code(s): I48.91 - Unspecified atrial fibrillation (3) Hypotension Status: Acute Category: Medical Code(s): I95.9 - Hypotension, unspecified (4) Pneumonia due to 2019-nCoV Status: Acute Category: Medical Code(s): U07.1 - COVID-19; J12.82 - Pneumonia due to coronavirus disease 2019 (5) COPD, very severe Status: Chronic Category: Medical Code(s): J44.9 - Chronic obstructive pulmonary disease, unspecified (6) Coronary artery disease Status: Chronic Category: Medical Code(s): I25.10 - Atherosclerotic heart disease of [place] coronary artery without angina pectoris (7) GERD (gastroesophageal reflux disease) Status: Acute Category: Medical Code(s): K21.9 - Gastro-esophageal reflux disease without esophagitis (8) Renal insufficiency Stat
--- NOTE | 2022-04-25 08:48 | HMH.PNCARD ---
Subjective Date: 04/25/22 Time: 08:49 Principal diagnosis: A. lauro with RVR, Pneumonia Interval history: 81 yo BM in bed. clinically unchanged from yesterday. Telemetry is a.fib with rate around 110 bpm Still on Amiodarone IV Lasix on hold for now. Lactated ringers given yesterday due to elevated Sodium and Chloride which are improved today. Exam Vital signs and Labs for Last 24 Hours: Temp Pulse Resp BP Pulse Ox 99.7 F H 103 H 22 113/69 97 04/25/22 04:00 04/25/22 06:15 04/25/22 06:00 04/25/22 06:00 04/25/22 06:15 Laboratory Results - last 24 hr 04/24/22 10:15: Sodium 158 H*, Potassium 4.3 D, Chloride 129 H, Carbon Dioxide 24, Anion Gap 9.3, BUN 25 H, Creatinine 0.80, Estimated Creat Clear 63, Estimated GFR 93, Est GFR ( Amer) 112, Glucose 114 H, Calcium 10.1, Total Bilirubin 4.1 H, AST 58, ALT 48, Alkaline Phosphatase 135 H, Total Protein 6.2 L, Albumin 2.8 L, Globulin 3.4 H, Albumin/Globulin Ratio 0.8 L 04/24/22 10:30: WBC 1.5 L*, RBC 3.13 L, Hgb 10.5 L, Hct 33.0 L, MCV 105.5 H, MCH 33.5 H, MCHC 31.8, RDW 19.1 H, Plt Count 23 L*, MPV 8.7, Neut % (Auto) 60.7, Lymph % (Auto) 32.7, [place] % (Auto) 6.2, Eos % (Auto) 0.4, Baso % (Auto) 3.3 H, Neut # (Auto) 0.9 L*, Lymph # (Auto) 0.5 L, [place] # (Auto) 0.1, Eos # (Auto) 0.0, Baso # (Auto) 0.1 04/25/22 06:20: WBC 2.1 L D, RBC 3.39 L, Hgb 11.1 L, Hct 36.6 L, MCV 107.9 H, MCH 32.7 H, MCHC 30.3 L, RDW 19.2 H, Plt Count 21 L*, MPV 9.2, Neut % (Auto) 49.4, Lymph % (Auto) 39.9, [place] % (Auto) 9.0, Eos % (Auto) 1.6, Baso % (Auto) 6.9 H, Neut # (Auto) 1.1 L, Lymph # (Auto) 0.9, [place] # (Auto) 0.2, Eos # (Auto) 0.0, Baso # (Auto) 0.2 04/25/22 06:20: Sodium 155 H*, Potassium 3.5, Chloride 122 H, Carbon Dioxide 31 H, Anion Gap 5.5, BUN 29 H, Creatinine 1.00 D, Estimated Creat Clear 55, Estimated GFR 72, Est GFR ( Amer) 87 D, Glucose 109 H, Calcium 10.3 H, Total Bilirubin 4.6 H, AST 46, ALT 41, Alkaline Phosphatase 151 H, Total Protein 5.7 L, Albumin 2.6 L, Globulin 3.1, Albumin/Globulin Ratio 0.8 L I & O for Last 24 hours: Intake & Output 04/22/22 04/23/22 04/24/22 04/25/22 11:59 11:59 11:59 11:59 Intake Total 2714 / 2714 2141 / 2141 952 / 952 766 / 766 Output Total 5100 / 5100 2400 / 2400 3800 / 3800 Balance 2714 / 2714 -2959 / -2959 -1448 / -1448 -3034 / -3034 Weight 173 lb 1.006 oz 171 lb 11.841 oz 171 lb 11.841 oz 150 lb 6.4 oz Microbiology Reports for the Last 24 Hours: Microbiology 04/22/22 12:45 Sputum - Expectorated Sputum Gram Stain - Final 04/22/22 12:45 Sputum - Expectorated Sputum Sputum Culture - Final Staphylococcus haemolyticus - Constitutional no acute distress - *Routine Respiratory Exam Present: rhonchi - *Routine Cardiovascular Exam Present: tachycardia, irregularly irregular Progress Note: A&P (1) HCAP (healthcare-associated pneumonia) Status: Acute (2) Atrial fibrillation with rapid ventricular response Status: Acute (3) Hypotension Status: Acute (4) Pneumonia due to 2019-nCoV Status: Acute (5) COPD, very severe Status: Chronic (6) Coronary artery disease Status: Chronic (7) GERD (gastroesophageal reflux disease) Status: Acute (8) Renal insufficiency Status: Chronic (9) Ulcerative colitis Status: Acute (10) Protein calorie malnutrition Status: Acute (11) Cirrhosis of liver Status: Acute (12) Right heart enlargement Status: Acute (13) Right heart failure with reduced right ventricular function Status: Acute (14) Pancytopenia Status: Acute Assessment and Plan for All Diagnoses:: 1. Continue IV amiodarone, digoxin and verapamil for rate control. 2. Nothing more to add from cardiac standpoint. Please call if needed.
--- NOTE | 2022-04-25 09:05 | DIET.NUTRFU ---
RD consulted for tubefeeding order via NG tube. Prognosis is poor patient is strict NPO d/t not alert enough with risks for aspiration. Patient is non-verbal and non-responsive today. Family has made him DNI but still wanting TF for nutritional support. He is not receiving IVF, labs today Na 155H, K 3.5, BUN 29H and Cr 1.0, bilirubin increased to 4.6H, Lila. phos. is also increasing to 151H. Medications reviewed: protonix, digoxin, MVI, ABT with NaCl and amiodarone with dextrose. completed medications: lasix from 04/21-04/24, lactated ringers on 04/24 (389ml) and remdesfir completed tx 04/25. Weight fluctuations d/t fluid gains, admit wt was 68kg, went up to 78kg with fluid, now post lasix tx is back to 68kg. Good urine output at >3000ml 04/22-04/24. Start Osmolite 1.2 at 10ml/hr ATC and advance every 8 hours by 10ml to reach goal rate of 60ml/hr= 1440ml/1728kcal/80gm protein and 1180ml from formula, will also need 35ml/hr ATC for flush when at goal rate. Will start flush at 70ml [id number] today and then increase to 140ml Q6hr tomorrow if tolerated to meet 100% nutritional needs.
--- NOTE | 2022-04-25 09:36 | HMH.ANESCL ---
[facility] Anesthesia Checklist - Patient Identification Patient Identification: Arm Band - Structural Data Admitted From: Inpatient Planned Operative Procedure/s: Cardioversion Consent for Planned Operative Procedure(s) Verified: Yes - NPO Status Verified Time NPO: 00:00 - Additional verifications Anesthesia Reactions: No - Airway Assessment C-Spine Mobility Assessed: Yes TMJ Mobility Assessed: Yes Dentition: Edentulous - Neurological Assessment Level of Consciousness: Awake Hx Seizures: No Numbness or tingling in extremities: No - Anesthesia Plan Anesthesia Risk discussed: Yes Anesthesia Plan: Verified ASA Class: III Anesthesia Type: MAC [facility] History I have reviewed the patient's past medical history: Yes Medical History: Reports:: Asthma, Atrial Fibrillation, BPH, Cancer, Chronic Obstructive Pulmonary Disease (COPD), Coronary Artery Disease, Gastroesophageal Reflux Disease(GERD), Hiatal Hernia, Hyperlipidemia, Hypertension, Lung Disease, Renal Disease (large renal cyst), Renal Insufficiency Denies:: Diabetes Mellitus Type 1, Diabetes Mellitus Type 2, Internal Pacemaker, MRSA, Seizures *Have you ever received a pneumonia vaccine?: Yes *Have you received a flu vaccine this season?: Yes Other Medical History: Reports: Arthritis, Cataracts, Other (Ulcerative colitis) Anesthesia experience/problems:: None Laterality Cases: Right: Arthroscopy Knee, Arthroscopy Shoulder, Bilateral: Tonsillectomy, Total Hip Replacement Other Surgeries: Yes: No Previous Surgery, Cancer Surgery, Cardiac Catheterization, Colonoscopy, Coronary Stent. No: Pacemaker Amputation: No Fractures: Yes - *Social History Smoking Status: Never smoker Alcohol Intake: never Substance Use Type: denies use *Occupational Status:: retired Housing: half-way Household Members: other *Travel in the last 8 weeks: None Family Hx:: Cancer
--- NOTE | 2022-04-25 10:05 | XR_ITS ---
FINAL REPORT CLINICAL HISTORY: confirm NG tube placement COMPARISON: 04/24/2022 FINDINGS: SINGLE-VIEW CHEST The heart size is normal. NG tube has been placed, tip is in the stomach. Multiple median sternotomy wires are present. There are dense bibasilar airspace infiltrates, overall unchanged. There is no pneumothorax. IMPRESSION: Interval placement of NG tube. Findings in the lung segura are unchanged peer Reviewed, Interpreted and Dictated by Aaron Hummel MD Transcribed by Marta Beebe Authenticated and . [facility]
--- NOTE | 2022-04-25 11:47 | PC.NURSE ---
Tube feeds started at this time
--- NOTE | 2022-04-25 11:55 | HMH.ACPN ---
Internal Medicine - PN: Subj *Date: 04/25/22 *Time: 11:55 Exam Vital signs and Labs for Last 24 Hours: Temp Pulse Resp BP Pulse Ox 99.2 F 118 H 23 127/97 H 97 04/25/22 08:00 04/25/22 10:32 04/25/22 10:00 04/25/22 10:00 04/25/22 10:32 Laboratory Results - last 24 hr 04/25/22 06:20: WBC 2.1 L D, RBC 3.39 L, Hgb 11.1 L, Hct 36.6 L, MCV 107.9 H, MCH 32.7 H, MCHC 30.3 L, RDW 19.2 H, Plt Count 21 L*, MPV 9.2, Neut % (Auto) 49.4, Lymph % (Auto) 39.9, [place] % (Auto) 9.0, Eos % (Auto) 1.6, Baso % (Auto) 6.9 H, Neut # (Auto) 1.1 L, Lymph # (Auto) 0.9, [place] # (Auto) 0.2, Eos # (Auto) 0.0, Baso # (Auto) 0.2 04/25/22 06:20: Sodium 155 H*, Potassium 3.5, Chloride 122 H, Carbon Dioxide 31 H, Anion Gap 5.5, BUN 29 H, Creatinine 1.00 D, Estimated Creat Clear 55, Estimated GFR 72, Est GFR ( Amer) 87 D, Glucose 109 H, Calcium 10.3 H, Total Bilirubin 4.6 H, AST 46, ALT 41, Alkaline Phosphatase 151 H, Total Protein 5.7 L, Albumin 2.6 L, Globulin 3.1, Albumin/Globulin Ratio 0.8 L I & O for Last 24 hours: Intake & Output 04/22/22 04/23/22 04/24/22 04/25/22 23:59 23:59 23:59 23:59 Intake Total 1919 / 1919 1579 / 1579 384 / 384 766 / 766 Output Total 3700 / 5100 3050 / 3800 3950 / 3950 600 / 600 Balance -1781 / -3181 -1471 / -2221 -3566 / -3566 166 / 166 Weight 78.5 kg 77.9 kg 77.9 kg 68.22 kg Microbiology Reports for the Last 24 Hours: Microbiology 04/22/22 12:45 Sputum - Expectorated Sputum Gram Stain - Final 04/22/22 12:45 Sputum - Expectorated Sputum Sputum Culture - Final Staphylococcus haemolyticus Assessment and Plan (1) HCAP (healthcare-associated pneumonia) Status: Acute Category: Medical Code(s): J18.9 - Pneumonia, unspecified organism (2) Atrial fibrillation with rapid ventricular response Status: Acute Category: Medical Code(s): I48.91 - Unspecified atrial fibrillation (3) Hypotension Status: Acute Category: Medical Code(s): I95.9 - Hypotension, unspecified (4) Pneumonia due to 2019-nCoV Status: Acute Category: Medical Code(s): U07.1 - COVID-19; J12.82 - Pneumonia due to coronavirus disease 2019 (5) COPD, very severe Status: Chronic Category: Medical Code(s): J44.9 - Chronic obstructive pulmonary disease, unspecified (6) Coronary artery disease Status: Chronic Category: Medical Code(s): I25.10 - Atherosclerotic heart disease of [place] coronary artery without angina pectoris (7) GERD (gastroesophageal reflux disease) Status: Acute Category: Medical Code(s): K21.9 - Gastro-esophageal reflux disease without esophagitis (8) Renal insufficiency Status: Chronic Category: Medical Code(s): N28.9 - Disorder of kidney and ureter, unspecified (9) Ulcerative colitis Status: Acute Category: Medical Code(s): K51.90 - Ulcerative colitis, unspecified, without complications (10) Protein calorie malnutrition Status: Acute Category: Medical Code(s): E46 - Unspecified protein-calorie malnutrition (11) Cirrhosis of liver Status: Acute Category: Medical Code(s): K74.60 - Unspecified cirrhosis of liver (12) Right heart enlargement Status: Acute Category: Medical Code(s): I51.7 - Cardiomegaly (13) Right heart failure with reduced right ventricular function Status: Acute Category: Medical Code(s): I50.810 - Right heart failure, unspecified (14) Pancytopenia Status: Acute Category: Medical Code(s): D61.818 - Other pancytopenia The patient's infection will respond to the chosen ABx?: Yes Is the patient receiving the right drug, dose, and route?: Yes Could a more targeted ABx be ordered?: No (CONTINUE CURRENT. TMAX 99.7 F OVERNIGHT.)
--- NOTE | 2022-04-25 12:19 | HMH.PULMPN ---
Internal Medicine - PN: Subj *Date: 04/25/22 *Time: 12:19 Interval history: No acute respiratory vents overnight. Exam - Constitutional Constitutional:: Absent: no acute distress, comfortable - HENMT Exam HENMT: Present: normocephalic - Eye Exam Eyes:: Present: normal appearance both eyes and related structures - Neck Exam Neck:: Present: normal visual inspection - Respiratory Exam Respiratory:: Present: respiratory distress, rhonchi. Absent: able to speak in complete sentences, wheezing - Cardiovascular Exam Cardiac:: Present: S1, S2 - GI Exam GI:: Present: soft - Skin Exam Skin: Present: warm, no rash - Neurological Exam Neurological: Absent: alert, awake, normal cognition - Extremities Exam Extremities: Present: no cyanosis, no clubbing Assessment and Plan (1) HCAP (healthcare-associated pneumonia) Status: Acute Category: Medical Code(s): J18.9 - Pneumonia, unspecified organism (2) Atrial fibrillation with rapid ventricular response Status: Acute Category: Medical Code(s): I48.91 - Unspecified atrial fibrillation (3) Hypotension Status: Acute Category: Medical Code(s): I95.9 - Hypotension, unspecified (4) Pneumonia due to 2019-nCoV Status: Acute Category: Medical Code(s): U07.1 - COVID-19; J12.82 - Pneumonia due to coronavirus disease 2019 (5) COPD, very severe Status: Chronic Category: Medical Code(s): J44.9 - Chronic obstructive pulmonary disease, unspecified (6) Coronary artery disease Status: Chronic Category: Medical Code(s): I25.10 - Atherosclerotic heart disease of [place] coronary artery without angina pectoris (7) GERD (gastroesophageal reflux disease) Status: Acute Category: Medical Code(s): K21.9 - Gastro-esophageal reflux disease without esophagitis (8) Renal insufficiency Status: Chronic Category: Medical Code(s): N28.9 - Disorder of kidney and ureter, unspecified (9) Ulcerative colitis Status: Acute Category: Medical Code(s): K51.90 - Ulcerative colitis, unspecified, without complications (10) Protein calorie malnutrition Status: Acute Category: Medical Code(s): E46 - Unspecified protein-calorie malnutrition (11) Cirrhosis of liver Status: Acute Category: Medical Code(s): K74.60 - Unspecified cirrhosis of liver (12) Right heart enlargement Status: Acute Category: Medical Code(s): I51.7 - Cardiomegaly (13) Right heart failure with reduced right ventricular function Status: Acute Category: Medical Code(s): I50.810 - Right heart failure, unspecified (14) Pancytopenia Status: Acute Category: Medical Code(s): D61.818 - Other pancytopenia - Assessment and plan all Dx Assessment and Plan for all problems:: #Acute hypoxic respiratory failure: #Hospital-acquired pneumonia: 81-year-old male prior smoker greater than [id number] smoking history carries a diagnosis COPD. As per chart review patient does have a history of COVID-19 pneumonia in February 2022 and also had a positive test twice including this hospital admission. On Admission - Afebrile. No evidence of leukocytosis. Chest x-ray on admission showed bilateral lower lobe predominant patchy airspace disease. Chest x-ray appears improved from his most recent chest x-ray from February 2022 with similar distribution of airspace disease. Patient also has been on methotrexate, unclear at this point of time. CTA no obvious evidence of segmental pulmonary embolism. Significant motion artifact. Bilateral upper lobe predominant emphysematous changes and lower lobe predominant groundglass opacities. bi-ventricular enlargement noted concerning for congestive heart failure along with pulmonary hypertension. Echocardiogram normal EF. RV dilation with RVSP at 35-40. RV strain noted. Patient also having A. fib RVR s/p cardioversion this morning Plan: -No significant improvement in mentation. Consider obtaining CT head without contrast. Initiate Seroq
[2022-04-25 13:19] LABS: Thyroid Stimulating Hormone 0.53 uIU/mL (0.465-4.68)
[2022-04-25 13:25] LABS: Ammonia 29 umol/L (9-30)
[2022-04-25 14:55] LABS: Vitamin B12 > 1000 pg/mL (239-931)
--- NOTE | 2022-04-25 15:31 | PC.NURSE ---
rounded on patient family at bedside. she stated she didnt have any questions or concerns at this time. encouraged her to let us know if she did.
--- NOTE | 2022-04-25 18:02 | PC.NURSE ---
1657- 0mL residual, feed increased to 20mL/hr.
--- NOTE | 2022-04-25 18:20 | PC.NURSE ---
Pt has been a q2h turn this shift. Pt remains on 15 L NRB. Amio gtt continues at same rate of 16.7mcg. Family updated on POC this shift and verbalized understanding. tube feeds currently at 20mL/hr. 0ML residuals thus far. NG tube patent and is 60cm @ the Left nare. No other acute changes.
--- NOTE | 2022-04-25 20:17 | PC.NURSE ---
RN aware of elevated temperature. will follow up after meds are given.
--- NOTE | 2022-04-25 21:52 | PC.NURSE ---
Rechecked Temp at this time. RN aware of Temperature.
--- NOTE | 2022-04-25 23:50 | PC.NURSE ---
2030 dr spencer called regarding pt blood pressures with b/p sbp <90 with b/p means <60; dr swann states to give 200cc bolus more of ivf currently hanging and then run fluids at 100cc/hr; repeated and verified.
[2022-04-26] VITALS (31 sets, daily range): BP systolic 78–119; BP diastolic 40–61; PULSE 70–121; RESP 16–35; TEMP 36.3–38.1; O2SAT 91–97; BMI 22.2
--- NOTE | 2022-04-26 00:14 | PC.NURSE ---
RN Notified of Temperature @ this time.
--- NOTE | 2022-04-26 00:40 | PC.NURSE ---
0040 dr spencer was called again regarding b/p 80/40's after fluids given, pt was on phenylephrine drip ,on hold currently, dr spencer states to restart drip what patient was on before repeated and verified.
--- NOTE | 2022-04-26 05:37 | PC.NURSE ---
0537 pts was called with update on pt status, informed of medication started to maintain b/p, and that breathing has become more labored at this time, pt stated ok thank you .
--- NOTE | 2022-04-26 07:30 | PC.NURSE ---
RN handoff @ BS. Pt does not respond to painful stimuli. GCS 3. Pupils pinpoint and reactive. Tubefeeds stopped @ this time. Afib uncontrolled with rate 90s on tele. BP 90s/50s. Amio gtt @ 0.5mg/min and Sherman gtt @ 80mcg/min. No MIVF infusing. No UOP in conte bag. Nightshift RN has notified of changes.
--- NOTE | 2022-04-26 08:30 | PC.NURSE ---
0742 attempted to call pt's again to inform of patient status, no answer at this time.
[2022-04-26 08:58] LABS: Basophils # 0.2 K/mm3 (0-0.2); Basophils % 7.4 % (0.1-2.0); Eosinophils % 0.8 % (0.1-12.0); Hematocrit 33.8 % (42.0-52.0); Hemoglobin 10.3 g/dL (14.1-18.0); Lymphocytes # 1.1 K/mm3 (0.7-4.5); Lymphocytes % 43.1 % (10-50); Mean Corpuscular HGB Conc 30.5 g/dL (31.8-35.4); Mean Corpuscular Hemoglobin 33.4 pg (27.0-31.2); Mean Corpuscular Volume 109.6 fl (80-94); Mean Platelet Volume 9.8 fl (7.4-10.4); Monocytes # 0.5 K/mm3 (0.1-1.0); Monocytes % 17.7 % (1.7-9.3); Neutrophils % 38.4 % (37.0-80.0); Red Blood Count 3.09 M/mm3 (4.60-6.20); White Blood Count 2.6 K/mm3 (4.8-10.8)
[2022-04-26 09:04] LABS: Platelet Count 23 K/mm3 (142-424)
--- NOTE | 2022-04-26 09:04 | PC.NURSE ---
received call from lab reporting platelet count 23. Name and verified. Dr. Gambino rounding and has been updated.
[2022-04-26 09:13] LABS: Alanine Aminotransferase 33 U/L (12-78); Albumin Level 2.4 g/dl (3.5-5.0); Albumin/Globulin Ratio 0.7 (1.1-1.8); Alkaline Phosphatase 105 U/L (38-126); Aspartate Amino Transferase 63 U/L (17-59); Bilirubin,Total 4.2 mg/dl (0.2-1.3); Blood Urea Nitrogen 42 mg/dl (9-20); Calcium 9.4 mg/dl (8.4-10.2); Carbon Dioxide 28 mmol/L (22.0-30.0); Chloride 120 mmol/L (98-107); Creatinine Clearance Estimated 32 mL/min (50-200); Estimated Glomerular Filt Rate 39 ml/min (>60); GFR (African American) 47 ML/MIN (>60); Globulin 3.3 g/dL (1.3-3.2); Glucose 181 mg/dl (74-100); Total Protein,Serum 5.7 g/dl (6.3-8.2)
[2022-04-26 09:36] LABS: Sodium 151 mmol/L (136-145)
--- NOTE | 2022-04-26 09:36 | PC.NURSE ---
received call from lab reporting Na 151 and K 6.0. Name and verified. Dr. Gambino updated.
--- NOTE | 2022-04-26 10:30 | PC.NURSE ---
contacted [facility] regarding GCS 3. Was on hold for aprox 10min and was prompted to leave a message with a call back number. Now awaiting return call.
--- NOTE | 2022-04-26 10:30 | PC.NURSE ---
updated by phone. She will arrive to [facility] shortly. Pt continues with DNI status.
--- NOTE | 2022-04-26 10:48 | PC.NURSE ---
received call from [facility]. Spoke to Cindy. She states that a referral cannot be made since pt is not on a ventilator and to call with referral at time of . No case ID was given.
--- NOTE | 2022-04-26 11:00 | PC.NURSE ---
BP 107/53. Sherman gtt decreased to 70mcg/min
--- NOTE | 2022-04-26 11:01 | HMH.ACPN2 ---
Internal Medicine - PN: Subj *Date: 04/26/22 *Time: 11:01 Interval history: He was more hypotensive and less responsive overnight. He has not had Ativan or morphine's for the past 24 hours. He remains on the Sherman-Synephrine and amiodarone drips. Feeding tube was placed yesterday and tube feedings initiated. Exam Vital signs and Labs for Last 24 Hours: Temp Pulse Resp BP Pulse Ox 98.0 F 83 22 102/61 L 96 04/26/22 08:00 04/26/22 10:21 04/26/22 10:00 04/26/22 10:00 04/26/22 10:21 Laboratory Results - last 24 hr 04/25/22 06:10: Vitamin B12 > 1000 H, TSH 0.53 04/25/22 13:04: Ammonia 29 04/26/22 08:47: WBC 2.6 L, RBC 3.09 L, Hgb 10.3 L, Hct 33.8 L, MCV 109.6 H, MCH 33.4 H, MCHC 30.5 L, RDW 19.0 H, Plt Count 23 L*, MPV 9.8, Neut % (Auto) 38.4, Lymph % (Auto) 43.1, [place] % (Auto) 17.7 H, Eos % (Auto) 0.8, Baso % (Auto) 7.4 H, Neut # (Auto) 1.0 L, Lymph # (Auto) 1.1, [place] # (Auto) 0.5, Eos # (Auto) 0.0, Baso # (Auto) 0.2 04/26/22 08:47: Sodium 151 H*, Potassium 6.0 H D, Chloride 120 H, Carbon Dioxide 28, Anion Gap 9.0, BUN 42 H D, Creatinine 1.70 H D, Estimated Creat Clear 32, Estimated GFR 39 L, Est GFR ( Amer) 47 L D, Glucose 181 H, Calcium 9.4, Total Bilirubin 4.2 H, AST 63 H D, ALT 33, Alkaline Phosphatase 105, Total Protein 5.7 L, Albumin 2.4 L, Globulin 3.3 H, Albumin/Globulin Ratio 0.7 L I & O for Last 24 hours: Intake & Output 04/23/22 04/24/22 04/25/22 04/26/22 11:59 11:59 11:59 11:59 Intake Total 2141 / 2141 952 / 952 766 / 766 2962 / 2962 Output Total 5100 / 5100 2400 / 2400 3800 / 3800 1400 / 1400 Balance -2959 / -2959 -1448 / -1448 -3034 / -3034 1562 / 1562 Weight 171 lb 11.841 oz 171 lb 11.841 oz 150 lb 6.4 oz 147 lb 0.773 oz Microbiology Reports for the Last 24 Hours: Microbiology 04/22/22 12:45 Sputum - Expectorated Sputum Gram Stain - Final 04/22/22 12:45 Sputum - Expectorated Sputum Sputum Culture - Final Staphylococcus haemolyticus Narrative: GCS of 3. Respirations were shallow. Chest with bilateral rhonchi throughout all lung segura. Heart rhythm is tachycardic. Abdomen soft and nondistended. Extremities show no edema. Urine output only 100 cc overnight Assessment and Plan (1) HCAP (healthcare-associated pneumonia) Status: Acute Category: Medical Code(s): J18.9 - Pneumonia, unspecified organism (2) Atrial fibrillation with rapid ventricular response Status: Acute Category: Medical Code(s): I48.91 - Unspecified atrial fibrillation (3) Hypotension Status: Acute Category: Medical Code(s): I95.9 - Hypotension, unspecified (4) Pneumonia due to 2019-nCoV Status: Acute Category: Medical Code(s): U07.1 - COVID-19; J12.82 - Pneumonia due to coronavirus disease 2019 (5) COPD, very severe Status: Chronic Category: Medical Code(s): J44.9 - Chronic obstructive pulmonary disease, unspecified (6) Coronary artery disease Status: Chronic Category: Medical Code(s): I25.10 - Atherosclerotic heart disease of [place] coronary artery without angina pectoris (7) GERD (gastroesophageal reflux disease) Status: Acute Category: Medical Code(s): K21.9 - Gastro-esophageal reflux disease without esophagitis (8) Renal insufficiency Status: Chronic Category: Medical Code(s): N28.9 - Disorder of kidney and ureter, unspecified (9) Ulcerative colitis Status: Acute Category: Medical Code(s): K51.90 - Ulcerative colitis, unspecified, without complications (10) Protein calorie malnutrition Status: Acute Category: Medical Code(s): E46 - Unspecified protein-calorie malnutrition (11) Cirrhosis of liver Status: Acute Category: Medical Code(s): K74.60 - Unspecified cirrhosis of liver (12) Right heart enlargement Status: Acute Category: Medical Code(s): I51.7 - Cardiomegaly (13) Right heart failure with reduced right ventricular function Status: Acute Category: Medical Code(s): I
--- NOTE | 2022-04-26 11:24 | PC.NURSE ---
(Phuong) @ BS and updated on POC. She decided to change code status from DNI to DNR. Form signed and order entered.
--- NOTE | 2022-04-26 18:13 | PC.NURSE ---
shift summary: Pt is now a DNR. GCS 3. Has been comfortable throughout shift. Robinul IV given once for rattling/secretions. Has not required Morphine or Ativan. Ruiz catheter inplace. NO UOP this shift. Accelerated Junctional with BBB on tele. Hypotensive. Sherman gtt now @ 80mcg/min. Amio gtt continues @ 0.5mg/min. Periods of apnea noted. Tachypnea noted. O2 sat low to mid 90s on NRB mask. Family present @ BS. EOL care explained to family indepth. All questions answered. Pt has been turned Q2 and oral care provided.
[2022-04-27] VITALS: BP 70/28; PULSE 58; PULSE 60; RESP 16; TEMP 36.8; O2SAT 92
[2022-04-27 01:00] VITALS: BP 70/34; PULSE 61; RESP 14; O2SAT 91
[2022-04-27 02:00] VITALS: BP 64/32; PULSE 60; RESP 16; O2SAT 91
[2022-04-27 03:00] VITALS: BP 67/29; PULSE 56; RESP 12; O2SAT 87
[2022-04-27 04:00] VITALS: BP 69/26; PULSE 50; PULSE 54; RESP 11; TEMP 36.9; O2SAT 83
--- NOTE | 2022-04-27 04:00 | PC.NURSE ---
Addendum entered by Elvia Mendoza RN 04/27/22 07:21: andrew at 140, not 80 at this time Original Note: pt has appeared comfortable t/o shift, present at bedside t/o shift, has refused turns a couple times this shift, amio at 0.5, andrew at , non rebreather still on, sats have begun to drop t/o shift, currently at 84%, HR has slowed t/o shift, currently at 51, HR 70's at beginning of shift, dg remains in place with a small amount of output noted
[2022-04-27 04:20] VITALS: BMI 22.1
--- NOTE | 2022-04-27 04:53 | PC.NURSE ---
pt has appeared comfortable t/o shift, present at bedside t/o shift, has refused turns a couple times this shift, amio at 0.5, andrew at 80, non rebreather still on, sats have begun to drop t/o shift, currently at 84%, HR has slowed t/o shift, currently at 51, HR 70's at beginning of shift, conte remains in place with a small amount of output noted
[2022-04-27 05:17] VITALS: BP 56/23; PULSE 51; RESP 10; O2SAT 84
--- NOTE | 2022-04-27 06:30 | P.DN_ITS ---
Pronouncement Note - Date and Time of Date of : 04/27/22 Time of : 06:05 - Additional Data Confirmation of : no pulse, no respirations, no heart sounds, pupils fixed and dilated Family: at bedside Attending/PCP notified?: Yes Attending physician: Lawrence Gambino MD Was code activated?: No Autopsy requested?: No corporate claims examiner notified?: No Organ bank notified?: Yes Advance directives: Yes
--- NOTE | 2022-04-27 06:47 | PC.NURSE ---
TOD [address]605 [address]15 [address] caller returned call, stated to have ER doctor pronounce [address] Egan to floor to pronounce 0632 [facility] contacted, Rosalva Reaves coordinator, , ruled out 0640 post mortem care performed
--- NOTE | 2022-04-27 09:46 | PC.NURSE ---
family request that home be called at this time. [facility] in [place], [place] contacted for removal.
--- NOTE | 2022-04-29 22:33 | [facility].DCSUM ---
General - General Admission date:: 04/15/22 <Lawrence Gambino - 05/08/22 22:37> 04/15/22 <Bel Stevenson - 04/29/22 22:34> Discharge date: 04/29/22 <Bel Stevenson - 04/29/22 22:34> HPI HPI: Mr. Lao is an 81-year-old -[place] with a history of coronary artery disease status post PCI in 2017, HFrEF, COPD on continuous oxygen, atrial fibs, hypertension, ulcerative colitis, OPA, sleep apnea, history of malignant neoplasm of the bladder, GERD who recently 2 weeks ago tested positive for COVID. He was removed from isolation protocol but has continued to decline. Nursing staff report that he is not eating and drinking very well and has a congested cough. They also state that he has been confused which is unusual for him. Today with visit by Marta Honeycutt APRN he was found to have a low blood pressure at 79/52 with repeat manually at 88/56. Heart rate was 120-130. He was able to assist with some of his exam but slept whenever left alone. He appeared to be dry. He had no leg edema. Thus he was transferred to [facility] emergency room via EMS for evaluation. His Phuong was notified. In the emergency room he continued to test positive for COVID. He was noted to be afebrile with a heart rate 120 and a blood pressure of 103/71-103/65. O2 sats ranged 91-93 on oxygen. Laboratory data revealed a white blood cell count of 6400 with a hemoglobin of 12.2 and hematocrit of 36.3. BUN was 48 creatinine 1.7. Total bilirubin was again elevated at 2.6 with an AST of 82 and alkaline phosphatase of 170. Albumin was low at 3.2. BNP was 2280. TSH was normal at 1.12. Lactate was 1.7. Troponin I was 0.11x2. Patient received a liter of IV fluids. Chest x-ray was abnormal with worsening bilateral infiltrates. EKG showed atrial fibrillation with rapid ventricular response at 142. To note patient was admitted to [facility] for short-term rehab following extended hospitalization at [facility] for heart failure. He has made progress with physical therapy. Visit has been complicated by ongoing congestive heart failure with leg edema and then faviola COVID. <Bel Stevenson - 04/29/22 22:34> Hospital Course Hospital Course: The patient was admitted and started on IV fluids at 150 mL/h. He was started on COVID vitamins, dexamethasone, and DuoNebs. A pulmonology consult was placed and he was started on cefepime. Dr. Gambino did find notation that he was COVID-positive when he was hospitalized at the [facility] for heart failure in February 2022. He was COVID-positive at [facility] 3 weeks prior to admission, and he was positive on admission. It was not clear if he had had a negative COVID test since February. He was seen in consultation by pulmonology. His chest x-ray appeared improved from his most recent chest x-ray in February 2022 with similar distribution of airspace disease. He wanted to continue the patient on oxygen, Trelegy, DuoNebs, dexamethasone, and cefepime. He did have a chest CTA which showed no PE but findings of right heart disease, underlying pulmonary emphysema, and superimposed patchy groundglass opacities in the lungs. The c programmer felt the biventricular enlargement was concerning for congestive heart failure along with pulmonary hypertension. The patient went into atrial fibrillation with rapid ventricular response. Cardiology was consulted. They started him on IV digoxin, but felt he would likely need IV diltiazem for rate control. His echo showed an EF of 55 to 60%. Cardiology suspected distal pulmonary emboli with moderate to severe right ventricular enlargement/moderate reduced function despite Eliquis therapy. They switched the patient to Xarelto. He had an elevated RVSP on echo estimated at 35 to 50 mmHg. He also became hypotensive and had to be started on an IV Sherman-Synephrine drip. His mental status began declining. His blood cultures returned negative. He was able to be weaned off the Sherman-Synephri
[2022-05-02 22:26] LABS: Anti-Centromere B Antibodies <0.2; Anti-DNA (DS) Ab Qn 1; Anti-Jo-1 <0.2; Anti-Smith Antibody <0.2; Antichromatin Antibodies <0.2; Antiscleroderma-70 Antibodies <0.2; RNP Antibodies <0.2; Sjogren's Anti-SS-A <0.2; Sjogren's Anti-SS-B <0.2
== END 2022-04-27 10:34 | disposition expired | DRG 177 ==
LOC: ER 14:27 → 2ND 16:53 → ICU 04-17 11:25 → 2ND 04-21 17:15
PROVIDERS: Internal Medicine; Internal Medicine Pulmonary Disease; Nurse Practitioner Family; Physician Assistant; Admitting Provider Family Medicine; Emergency Provider Emergency Medicine; PCP Family Medicine; Visit Provider Family Medicine
DX: U07.1 COVID-19 (principal); J12.82 Pneumonia due to coronavirus disease 2019; I48.11 Longstanding persistent atrial fibrillation; I50.22 Chronic systolic (congestive) heart failure; K51.90 Ulcerative colitis, unspecified, without complications; E46 Unspecified protein-calorie malnutrition; D61.818 Other pancytopenia; N40.0 Benign prostatic hyperplasia without lower urinary tract symptoms; J44.9 Chronic obstructive pulmonary disease, unspecified; I25.10 Atherosclerotic heart disease of native coronary artery without angina pectoris; K21.9 Gastro-esophageal reflux disease without esophagitis; E78.5 Hyperlipidemia, unspecified; M19.90 Unspecified osteoarthritis, unspecified site; Z85.51 Personal history of malignant neoplasm of bladder; Z99.81 Dependence on supplemental oxygen; Z68.22 Body mass index [BMI] 22.0-22.9, adult; I12.9 Hypertensive chronic kidney disease with stage 1 through stage 4 chronic kidney disease, or unspecified chronic kidney disease; N18.2 Chronic kidney disease, stage 2 (mild); K74.60 Unspecified cirrhosis of liver; R00.1 Bradycardia, unspecified
CPT/HCPCS: 36415; 71045; 71275; 76700; 80048; 80051; 80053; 81001; 82140; 82150; 82607; 82803; 83605; 83615; 83690; 83880; 84436; 84443; 84479; 84484; 85007; 85025; 85378; 85384; 85610; 86140; 86225; 86235; 87040; 87070; 87081; 87186; 87205; 92960; 93005; 93306; 94640; 94760; 94761; 99285; C9803; J0282; J0692; J1205; J2185; J7060; Q9967; U0003; U0005